=== PATIENT | female | born 1940 | race Caucasian/White ===

== ENCOUNTER 2023-08-15 10:44 | Emergency (ER) | payer MEDICARE, SELFPAY ==
[2023-08-15] VITALS (9 sets, daily range): BP systolic 107–157; BP diastolic 60–86; BMI 24.5
--- NOTE | 2023-08-15 11:42 | EDRN ---
Abrasions on L elbow and knee cleansed w/ saline and dressed w/ double antibiotic ointment. L great toe cleansed w/ saline and dressed w/ double antibiotic ointment and bandaid.
--- NOTE | 2023-08-15 14:20 | ED.MUSCINJ ---
HPI-Injury
General
Chief Complaint: Fall
Source: patient
Time Seen by Provider: 08/15/23 11:26
Travel History
Have you had any contact with someone who has COVID-19?: No
Do you have any symptoms of coronavirus? Fever > 100 degrees, chills, cough, shortness of breath, sore throat, loss of taste or smell, muscle aches, or headache?: No
History of Present Illness-Injury
Initial Injury comments:
82 year old female presents after mechanical fall with complaints of left wrist left hip and knee pain. She also injured her left toes and her right rib. Did not hit her head. Not anticoagulated. She denies any neck or back pain. She typically
ambulates on her own without the assistance of a cane or walker.
Phy Exam
Physical Exam
Physical Exam:
General: Well-appearing female no acute respiratory distress
HEENT: Normocephalic atraumatic
Heart: Regular rate and rhythm no murmurs
Lungs: Clear to auscultation bilaterally no wheezing
Abd: Soft, nontender
MSK: Spine is nontender. Left wrist is swollen and tender over the distal radius. No significant deformity. Left knee has ecchymosis with effusion no deformity but diffusely tender. Mild palpation about the left hip and second toe.
Right ribs are tender anteriorly
Injury Course
Orders/Labs/Results
Orders:
Orders
08/15/23 11:38
CR Foot - Left Min 3 Views Urgent
Comment:
Reason For Exam: fall
CR Hip - LT w/wo Pel 2-3 Vw* Urgent
Comment:
Reason For Exam: fall
Include a pelvis x-ray?: Yes
CR Knee - Left 4 Or More View* Urgent
Comment:
Reason For Exam: fall
CR Ribs-right 3 Vw W/pa Chest* Urgent
Comment:
Reason For Exam: fall
CR Wrist - Left Min 3 Views Urgent
Comment:
Reason For Exam: fall
08/15/23 13:27
CT Pelvis W/o Iv Contrast Urgent
Comment:
Reason For Exam: possible left hip fracture
08/15/23 13:33
Volar Left-Treatment ONCE
08/15/23 15:05
Acetaminophen [Tylenol] 650 mg PO NOW STA
08/15/23 15:06
PT Consult [Pt Eval And Treat] Urgent
Activity Level: Ambulate
MDM/Problems Addressed
Differential Diagnosis Includes:
Mechanical fall with multiple areas of comfort. Order x-rays left wrist right ribs left hip left knee and left foot.
*Critical Care Note
Total Time (30-74mins, 75-104mins- exclusive of procedures): Not Applicable
Update Note
Update Note:
CT of the pelvis was negative for hip fracture. X-rays of the left knee were negative. She does have an effusion. Only fractures of left wrist distal radius fracture. The left foot and right ribs were negative. I placed the patient in a volar
splint using cast padding 2 inch OCL and Óscar bandages. Patient attempted initially to stand up and walk however she was having difficulty doing so because of the left knee discomfort. Formal physical therapy consult was placed and she did not do
so well. They recommend SNF for rehab. Family is in the room and is very supportive. There is many family members around that can help. They are requesting to wait a little bit more time for the Tylenol to help and reevaluate her ambulatory
status. I was in the room and we tried again. Patient was able to stand and transfer to a chair take a couple steps on her leg. Family very comfortable taking her home at this point. I think this is reasonable. Recommended continued ibuprofen
or Tylenol for pain return precautions were given. Stable for discharge with orthopedic follow-up
ED Attending Note
-
Portions of this chart may have been created with voice recognition software.� Occasional wrong word or��sound alike� substitutions may have occurred due to the inherent limitations of voice recognition software.
Discharge Plan
Departure
Patient Disposition: Home (Routine Discharge)
Date of Disposition: 08/15/23
Time of Disposition: 16:52
Patient with high blood pressure during this ER visit?: No
Discharge Problem:
Distal radial fracture
Instructions: Muscle and Bone Pain (DC), Contusion (DC)
Referrals:
Devyn Hamilton MD [Active] -
Namita Naqvi MD [Family Provider] -
Activity Restrictions/Additional Instructions:
Continue to administer ibuprofen or Tylenol for pain. Use cane for support. Follow up with orthopedics for further evaluation. Return if needed otherwise.
Interventions
Interventions:
*Risk Screen - Suicide Last Done: 08/15/23 10:50
*General Assessment Last Done: 08/15/23 10:50
*Neglect/Abuse Screening Last Done: 08/15/23 10:50
ED- Fall Risk Assessment Last Done: 08/15/23 10:50
*ED COVID-19 Vaccine History Last Done: 08/15/23 10:50
ED-Musculoskeletal Assessment Last Done: 08/15/23 11:37
ED- Neurological Assessment Last Done: 08/15/23 11:37
ED-Skin Assessment Last Done: 08/15/23 11:37
--- NOTE | 2023-08-15 14:51 | EDRN ---
Cielo BHAKTA in room cutting off pt's ring and applying L volar splint at this time.
[2023-08-15] MEDS: TYLENOL 650 MG PO (15:10)
--- NOTE | 2023-08-15 15:22 | EDRN ---
PT in room w/pt. Pt just got up OOB to commode and back. Only taking very tiny steps. Foot and L upper leg and knee pain during ambulation, not wanting to use that leg.
--- NOTE | 2023-08-15 16:05 | EDRN ---
Pt administered water. PT said pt is not able to ambulate enough to be discharged home. Pt should be admitted. Pt is taking care of spouse at home and no family members are living w/ them. pt is unable to ambulate even w/ PT. Cielo BHAKTA said
okay for pt to drink and pt as she requested was administered a cup of water.
--- NOTE | 2023-08-15 16:59 | EDRN ---
Cielo BHAKTA said pt transfering much better and family will be staying w/ her as well so plan is for pt to be discharged.
== END 2023-08-15 17:25 | disposition home or self-care (01) ==
LOC: EMR 10:44
PROVIDERS: EMERGENCY PHYSICIAN Emergency Medicine; FAMILY PHYSICIAN Family Medicine
DX: S52.502A Unspecified fracture of the lower end of left radius, initial encounter for closed fracture (principal); W19.XXXA Unspecified fall, initial encounter
CPT/HCPCS: 99283; 29125; 71101; 72192; 73110; 73502; 73564; 73630

== ENCOUNTER 2023-08-18 08:35 | Inpatient (IN) | payer MEDICARE, SELFPAY ==
[2023-08-16 11:56] VITALS: BP 115/74
--- NOTE | 2023-08-16 13:27 | ED.GENMED ---
History of Present Illness
General
Chief Complaint: Weakness
Source: patient
Exam Limitations: none
Time Seen by Provider: 08/16/23 13:11
Travel History
Have you had any contact with someone who has COVID-19?: No
Do you have any symptoms of coronavirus? Fever > 100 degrees, chills, cough, shortness of breath, sore throat, loss of taste or smell, muscle aches, or headache?: No
History of Present Illness
History of Present Illness:
82-year-old female seen here yesterday after a fall. She was diagnosed with a left distal radius fracture and effusion to the left knee. Admission was discussed yesterday and offered however family felt strongly about taking her home. She was
seen by PT yesterday who recommended placement secondary to ambulatory dysfunction. She lives at home with her who she takes care of. They try to take her home last night however she is not ambulatory secondary to left leg dysfunction and
pain. CT of the pelvis yesterday was negative x-ray left knee and foot were also negative. Family notes increased confusion since yesterday. No measurable fever. No cough.
Phy Exam
Physical Exam
Physical Exam:
General: Well-appearing female no acute respiratory distress
HEENT: Normocephalic atraumatic mucosa moist neck is supple
Heart: Regular rate and rhythm no murmurs
Lungs: Clear to auscultation bilaterally no wheezing
Abdomen: Soft nontender nondistended no guarding or rebound
Musculoskeletal exam: Spine nontender left hip nontender diffuse tenderness about the left knee with effusion. Left thigh and hernandez are nontender.
Neurologic: Alert oriented to person. Occasionally repeats herself. No facial asymmetry no drift on exam good muscle tone struggle significantly is a maximum assist getting from the wheelchair to the bed
Course
Orders/Labs/Results
Orders:
Orders
08/16/23 13:26
CT Head W/o Iv Contrast Urgent
Comment:
Reason For Exam: fall, weakness
08/16/23 13:40
COVID-19 Antigen Urgent
Source: Nasal Swab
Complete Blood Count/With Diff Urgent
Comprehensive Metabolic Panel Urgent
Influenza A+B Rapid Molecular Urgent
EMILY Source: Nasal Swab
Specimen Description:
08/16/23 14:33
Case Management Consult ONCE
Case Management Consult: Discharge Planning
08/16/23 14:57
Urinalysis Reflex To Culture Urgent
Date Specimen was Collected: 08/16/23
Time Specimen was Collected: 14:29
Urine Microscopic Reflex Cult Urgent
Urine Culture Urgent
EMILY Source: U
Specimen Description:
Date Specimen was Collected: 08/16/23
Time Specimen was Collected: 14:29
08/16/23 15:40
CefTRIAXone [Rocephin] 1,000 mg IV NOW STA
Abnormal Lab Results
08/16/23 08/16/23
13:40 14:57
RBC 3.92 L 10^6/uL
(4.20-5.40)
Hgb 11.6 L g/dL
(12.0-16.0)
Hct 34.6 L %
(37.0-47.0)
MPV 10.6 H fL
(7.4-10.4)
Absolute Lymphs (auto) 1.1 L 10^3/uL
(1.2-3.4)
Neutrophils % 76.3 H %
(42.2-75.2)
Lymphocytes % 14.8 L %
(20.5-51.1)
BUN 25 H mg/dl
(7-17)
Creatinine 1.2 H mg/dL
(0.6-1.0)
Glucose 104 H mg/dl
(70-99)
Urine Ketones Trace A
(Negative)
Ur Occult Blood Reflex 2+ A
(Negative)
Urine Nitrite (Reflex) Positive A
(Negative)
Leukocyte Esterase Rfl 1+ A
(Negative)
Urine RBC 3-6 A /HPF
(0-2)
Urine WBC (Reflex) 11-15 A /HPF
(0-5)
Urine Bacteria (Reflex) Many A
(Negative)
08/16/23 13:40
08/16/23 13:40
Vital Signs
Initial and Last Documented VS:
Initial Vital Signs
Temp Pulse Resp BP Pulse Ox
98.8 F 61 16 115/74 98
08/16/23 11:56 08/16/23 11:56 08/16/23 11:56 08/16/23 11:56 08/16/23 11:56
Last Documented Vital Signs
Temp Pulse Resp BP Pulse Ox
98.8 F 61 16 115/74 98
08/16/23 11:56 08/16/23 11:56 08/16/23 11:56 08/16/23 11:56 08/16/23 11:56
MDM/Problems Addressed
Differential Diagnosis Includes:
None left distal radius fracture. Generalized weakness and increased confusion with recent fall. Now nonambulatory. Prior to the fall she was fully functional and ambulatory. Will check CAT scan of head, labs and urinalysis. Test for COVID and
flu. PT evaluation yesterday recommended placement. Patient not safe to go home at this time
*Critical Care Note
Total Time (30-74mins, 75-104mins- exclusive of procedures): Not Applicable
Update Note
Update Note:
UA with nitrites and bacteria. CT negative COVID and flu negative. Patient here with falls weakness increased confusion. Has a known left distal radius fracture. Tried to go home last night but requiring too much assistance and family unable to
care for at home. Will admit to hospital. Rocephin started for UTI case management involved for discharge planning
ED Attending Note
-
Portions of this chart may have been created with voice recognition software.� Occasional wrong word or��sound alike� substitutions may have occurred due to the inherent limitations of voice recognition software.
Discharge Plan
Departure
Patient Disposition: Admit
Date of Disposition: 08/16/23
Time of Disposition: 15:53
Presentation/result/management discussed w/ accepting MD/DO: Hospitalist
Discharge Problem:
Acute UTI, Weakness
Prescriptions:
No Action
atorvastatin 10 mg Tablet
10 mg PO DAILY@1999
acetaminophen [Tylenol Extra Strength] 500 mg Tablet
1,000 mg PO BIDPRN PRN (Reason: mild pain)
triamcinolone acetonide 0.1 % Cream
1 applic TOPICAL BID
mirtazapine 30 mg Tablet
30 mg PO DAILY@1999
escitalopram oxalate 20 mg Tablet
20 mg PO DAILY
metoprolol tartrate 25 mg Tablet
12.5 mg PO BID
Referrals:
Namita Naqvi MD [Family Provider] -
Interventions
Interventions:
*Risk Screen - Suicide Last Done: 08/16/23 13:32
*General Assessment Last Done: 08/16/23 13:32
*Neglect/Abuse Screening Last Done: 08/16/23 13:32
ED- Cardiac Assessment Last Done: 08/16/23 13:47
ED- Neurological Assessment Last Done: 08/16/23 13:47
ED- Pulmonary Assessment Last Done: 08/16/23 13:47
[2023-08-16 13:31] VITALS: BMI 22.9
[2023-08-16 14:00] LABS: % Basophils 0.3 % (0-2); % Eosinophils 0.4 % (0-6); % Immature Granulocytes 0.4 % (0-0.5); % Lymphocytes 14.8 % (20.5-51.1); % Monocytes 7.8 % (1.7-9.3); % Neutrophils 76.3 % (42.2-75.2); Absolute Lymphocytes 1.1 10^3/uL (1.2-3.4); Absolute Monocytes 0.6 10^3/uL (0.1-0.6); Absolute Neutrophils 5.6 10^3/uL (1.4-6.5); Hematocrit 34.6 % (37.0-47.0); Hemoglobin 11.6 g/dL (12.0-16.0); Mean Corp Hgb Conc. 33.5 g/dL (33.0-37.0); Mean Corpuscular Hgb 29.6 pg (27.0-31.0); Mean Corpuscular Volume 88.3 fL (81.0-99.0); Mean Platelet Volume 10.6 fL (7.4-10.4); Nucleated Red Blood Cells % 0 %; Platelet Count 193 10^3/uL (130-400); Red Blood Cell Count 3.92 10^6/uL (4.20-5.40); Red Cell Dist. Width 13.5 % (11.5-14.5); White Blood Cell Count 7.3 10^3/uL (4.8-10.8)
[2023-08-16 14:09] LABS: ALT (SGPT) 15 U/L (0-35); AST (SGOT) 29 U/L (14-36); Albumin 4.3 g/dl (3.5-5.0); Alkaline Phosphatase 59 U/L (38-126); Blood Urea Nitrogen 25 mg/dl (7-17); Calcium 9.3 mg/dl (8.4-10.2); Carbon Dioxide 27 mmol/L (22-30); Chloride 103 mmol/L (98-107); Estimated Creatinine Clearance 34 ml/min; Glucose 104 mg/dl (70-99); Potassium 4.1 mmol/L (3.5-5.1); Sodium 135 mmol/L (135-145); Total Bilirubin 1.1 mg/dl (0.2-1.3); Total Protein 7.4 g/dl (6.3-8.2); eGFR 45.19
[2023-08-16 14:12] LABS: COVID-19 Antigen Negative (Negative)
[2023-08-16 15:16] LABS: Urine Albumin Trace (Neg - Trace); Urine Bilirubin Negative (Negative); Urine Character Clear (Clear); Urine Color Yellow; Urine Glucose Negative (Negative); Urine Ketone Trace (Negative); Urine Leukocyte 1+ (Negative); Urine Nitrite Positive (Negative); Urine Occult Blood 2+ (Negative); Urine Specific Gravity 1.015 (<1.030); Urine Urobilinogen Negative (Neg - 1+)
[2023-08-16 15:32] LABS: Urine Bacteria Many (Negative)
[2023-08-16] MEDS: ROCEPHIN 1000 MG IV (15:52)
--- NOTE | 2023-08-16 16:00 | CM ---
CM following re: d/c planning
Chart reviewed
CM met with the patient & her daughter at bedside; IA completed
Pt states she, her spouse, her dtr. & son-in-law reside in a 1 story rancher with a ramp
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
Pt has no previous SNF/VN hx and has the following DME for use if needed: a transport chair, O2, r/w, bsc,spc, & CPAP
Pt has prescription coverage and rx's are filled at [facility] on [facility]
Pt PCP-Dr. Naqvi
Patient's daughter at bedside is requesting a PM&R consult and is looking for her mom to be discharged to [place] if appropriate
CM will continue to follow patient and assist with continued d/c needs as indicated
PLAN; CM following for needs
[2023-08-16] MEDS: TYLENOL 650 MG PO (18:39)
--- NOTE | 2023-08-16 20:31 | HPS.HSE ---
Family Physician
-
Family Physician: Namita Naqvi
Chief Complaint
-
Weakness and left knee pain after a recent fall
History of Present Illness
82 y/o female with past medical history of chronic kidney disease, hypertension, hyperlipidemia, depression, anxiety and insomnia presented (with her daughter present at the time of admission) presented with generalized weakness after a recent fall
yesterday, she came to the ER, and she was diagnosed with a left distal radius fracture and effusion to the left knee. Patient was discharged home after family and patient wanted to go home, but after going home last night she was noted have leg
dysfunction and pain, especially on the left knee. At baseline, patient is full independent of activities of daily living, patient lives at home with her who she takes care of. CT of the pelvis yesterday was negative x-ray left knee and foot
were also negative.
Medical History
Past Medical History
Past Medical History: Reports Other (As per HPI above)
Past Surgical History: Reports None
Social History
Tobacco: Non-smoker
Alcohol: None
Drug: None
Family History
Family History: Not pertinent
Allergies / Home Medications
Allergies reflects when Allergies were last updated in [employer].
Home Medications with original date entered in [employer]
Allergy/Medication List:
Allergies
Allergy/AdvReac Type Severity Reaction Status Date / Time
Sulfa (Sulfonamide Allergy Rash Verified 08/16/23 11:55
Antibiotics)
Home Medications
acetaminophen 500 mg tablet (Tylenol Extra Strength) 1,000 mg PO BIDPRN PRN mild pain 08/16/23
atorvastatin 10 mg tablet 10 mg PO DAILY@199908/16/23
escitalopram oxalate 20 mg tablet 20 mg PO DAILY 08/16/23
metoprolol tartrate 25 mg tablet 12.5 mg PO BID 08/16/23
mirtazapine 30 mg tablet 30 mg PO DAILY@199908/16/23
triamcinolone acetonide 0.1 % topical cream 1 applic topical BID apply to right ankle/left elbow/lower back 08/16/23
Review of Systems
-
A 12 point ROS was completed and negative except as noted: Yes
Physical Exam
Vital Signs
Vital Signs
Temp Pulse Resp BP Pulse Ox
98.8 F 61 16 115/74 98
08/16/23 11:56 08/16/23 11:56 08/16/23 11:56 08/16/23 11:56 08/16/23 11:56
Physical Exam
General: No Apparent Distress and Comfortable
HEENT: NormoCephalic
Respiratory: Clear
Cardiac: S1/S2 and Regular Rhythm
GI: Soft, Non Tender and Normal Bowel Sounds
Musculoskeletal: No Cyanosis, No Edema and Other (Left Knee with tenderness and some swelling. Minimal erythema.)
Skin: Warm and Dry
Neuro: Awake, Alert and AO x 3
Psych: Calm
Laboratory Results
-
08/16/23 13:40
08/16/23 13:40
Laboratory Results
Total Bilirubin 1.1 mg/dl (0.2-1.3) 08/16/23 13:40
AST 29 U/L (14-36) 08/16/23 13:40
ALT 15 U/L (0-35) 08/16/23 13:40
Alkaline Phosphatase 59 U/L (38-126) 08/16/23 13:40
Impression/Plan
-
Assessment/Plan
Generalized Weakness
Fall Recently
Suspected UTI
-Ceftriaxone
-Follow cultures, vital signs
-PT/OT
-Neurovascular checks
Left distal radius fracture
Effusion to the left knee
-Will consult orthopedics
-Neurovascular checks
NATHALIE vs Chronic kidney disease Stage 3a
-Trial of IV fluids
-Will consider nephrology consultation
Hypertension - continue home Lopressor
Hyperlipidemia - continue home Atorvastating
Depression - continue home escitalopram. Check QTc.
Anxiety
Insomnia - continue Mirtazapine
DVT Prophylaxis: SCDs, Heparin
[2023-08-16] MEDS: HEPARIN SC (21:51)
[2023-08-16] MEDS: LOPRESSOR 12.5 MG PO (21:55)
[2023-08-16] MEDS: REMERON 30 MG PO (21:55)
[2023-08-16] MEDS: LIPITOR 10 MG PO (21:55)
[2023-08-16] MEDS: NSS 1000 IV (21:55)
[2023-08-16 22:10] VITALS: BP 143/86
[2023-08-17] VITALS (7 sets, daily range): BP systolic 127–176; BP diastolic 61–80
[2023-08-17 06:35] LABS: % Basophils 0.4 % (0-2); % Eosinophils 1.1 % (0-6); % Immature Granulocytes 0.4 % (0-0.5); % Lymphocytes 20.5 % (20.5-51.1); % Monocytes 7.8 % (1.7-9.3); % Neutrophils 69.8 % (42.2-75.2); Absolute Eosinophils 0.1 10^3/uL (0-0.7); Absolute Lymphocytes 1.5 10^3/uL (1.2-3.4); Absolute Monocytes 0.6 10^3/uL (0.1-0.6); Hematocrit 33.2 % (37.0-47.0); Hemoglobin 11.4 g/dL (12.0-16.0); Mean Corp Hgb Conc. 34.3 g/dL (33.0-37.0); Mean Corpuscular Hgb 30.4 pg (27.0-31.0); Mean Corpuscular Volume 88.5 fL (81.0-99.0); Mean Platelet Volume 10.8 fL (7.4-10.4); Nucleated Red Blood Cells % 0 %; Platelet Count 169 10^3/uL (130-400); Red Blood Cell Count 3.75 10^6/uL (4.20-5.40); Red Cell Dist. Width 13.5 % (11.5-14.5); White Blood Cell Count 7.1 10^3/uL (4.8-10.8)
[2023-08-17 06:54] LABS: Blood Urea Nitrogen 23 mg/dl (7-17); Calcium 9.2 mg/dl (8.4-10.2); Carbon Dioxide 23 mmol/L (22-30); Chloride 105 mmol/L (98-107); Estimated Creatinine Clearance 41 ml/min; Glucose 102 mg/dl (70-99); Magnesium 2.2 mg/dl (1.6-2.3); Sodium 138 mmol/L (135-145); eGFR 56.25
[2023-08-17 07:06] LABS: Creatine Phosphokinase 119 U/L (30-135)
[2023-08-17] MEDS: LOPRESSOR 12.5 MG PO ×2 (07:39→19:46)
[2023-08-17] MEDS: MIRALAX 17 GRAMS PO (07:39)
[2023-08-17] MEDS: SENOKOT 8.59999999999999964 MG PO (07:40)
[2023-08-17] MEDS: COLACE 100 MG PO (07:40)
[2023-08-17] MEDS: HEPARIN SC ×2 (07:46→19:54)
--- NOTE | 2023-08-17 07:49 | EDRN ---
Pt did not want the Heparin ' until I check with my daughter'. Other meds administered as pharmacy delivers them
[2023-08-17] MEDS: LEXAPRO 20 MG PO (07:56)
[2023-08-17] MEDS: ARISTOCORT/TRIAMCINOLONE 0.1% CREAM 1 APPLIC TOPICAL ×2 (07:57→19:45)
--- NOTE | 2023-08-17 09:36 | W.PN.UPDATE ---
Update Note
Progress Note Update
Patient seen this morning on rounds. Full consult note to follow.
I believe Luba is dealing with a LCL strain. Her images do not reveal any obvious fractures of her knee or hip, and her exam is not concerning for occult hip fracture. She may continue WBAT to LLE, but recommend assistive device to offload weight
from the joint. Continue splint and NWB to LUE until seen by outpatient orthopedics. Continue pain control per primary.
--- NOTE | 2023-08-17 10:18 | EDRN ---
needs direction when asked to do things; seems forgetful.
[2023-08-17] MEDS: TYLENOL 1000 MG PO ×2 (11:48→23:06)
--- NOTE | 2023-08-17 12:32 | CON.ORTHO ---
Addendum entered and electronically signed by Ming Enriquez MD 08/17/23 17:18:
Patient seen and examined and agree with Trena Morrissey's assessment and plan
Original Note:
Consultation
-
Date/Time Consultation Requested: 08/17/2023; time unknown
Date/Time Consultation Performed: 08/17/2023; 0830
Requesting Provider: unknown
Performing Provider: Trena Morrissey PA-C for Dr. Ming Enriquez
Reason for Consultation: Left distal radius fracture; left knee pain
Consultation - Orthopedics
History
Ms. Flanagan is an 82 year old female with PMH of chronic kidney disease, hypertension, hyperlipidemia, depression, anxiety and insomnia. She presented initially to [facility] ED after a fall at home on 08/15/2023. She reports her feet got
caught while swinging on a glider on her porch, and she fell forward onto her knees. She experienced onset on pain in her left wrist and left knee. She was discharged home, but returned to the ED due to continued pain in her left knee and difficulty
ambulating. She localizes pain to her lateral knee. She does report significant improvement in both her pain and ROM this morning. She denies any low back or hip pain.
She does live independently, and ambulates without assistance at baseline. She denies treatment with an orthopedist in the past.
Allergies / Home Medications
Allergy/AdvReac Type Severity Reaction Status Date / Time
Sulfa (Sulfonamide Allergy Rash Verified 08/16/23 11:55
Antibiotics)
Medication Instructions Recorded
acetaminophen 500 mg tablet 1,000 mg PO BIDPRN PRN mild pain 08/16/23
(Tylenol Extra Strength)
atorvastatin 10 mg tablet 10 mg PO DAILY@2000 High 08/16/23
Cholesterol
escitalopram oxalate 20 mg tablet 20 mg PO DAILY Mental 08/16/23
Health/Anxiety
metoprolol tartrate 25 mg tablet 12.5 mg PO BID Blood Pressure 08/16/23
mirtazapine 30 mg tablet 30 mg PO DAILY@1999 Mental 08/16/23
Health/Anxiety
triamcinolone acetonide 0.1 % 1 applic topical BID apply to 08/16/23
topical cream right ankle/left elbow/lower back
Vital Signs / Lab Results
Temp Pulse Resp BP Pulse Ox
98.4 F 71 16 133/71 97
08/17/23 07:20 08/17/23 07:39 08/17/23 06:15 08/17/23 07:39 08/17/23 06:15
08/17/23 06:13
08/17/23 06:13
XR Left Hip 08/15/2023 IMPRESSION:
There is subtle cortical disruption at the lateral aspect of the left femoral head and neck suggesting nondisplaced cortical fracture which, if clinically indicated, could be further evaluated with CT or MRI.
XR Left Knee 08/15/2023 IMPRESSION:
Moderate suprapatellar joint effusion. No osseous abnormalities.
XR Left Wrist 08/15/2023 IMPRESSION:
Comminuted angulated fracture of the distal left radial metaphysis, with possible intra-articular extension.
CT Pelvis 08/15/2023 IMPRESSION:
No acute abnormalities.
Degenerative disc disease at L5-S1
Physical Exam:
General: pleasant female in NAD, AAOx3
Head: atraumatic, normocephalic
Eyes: sclera anicteric
Ears: normal hearing
Heart: no edema
Lungs: normal work of breathing, no audible wheezing
Left wrist: short arm splint in place. Patient able to wiggle fingers. Sensation intact to light touch. Capillary refill <2 seconds.
Left knee: Moderate effusion compared to contralateral side. Mild tenderness to palpation about the lateral femoral condyle and LCL. ROM 0-110. Stable to varus and valgus stress; discomfort elicited with varus stress. Calf soft and nontender.
Neurovascularly intact distally.
Assessment / Plan
Left distal radius fracture
--Continue with immobilization in splint. Non-weight bearing to left upper extremity.
--Ice, elevation and pain control per primary.
--Follow up in the office next week for repeat x-rays and likely casting.
Left knee pain and swelling; suspected LCL sprain
--I am reassured that Luba's knee pain has improved overnight. Her imaging does not show any signs of hip or knee fracture, and I do not suspect hip fracture on her exam today. I suspect she may have sustained an LCL sprain in her fall, as she
reports she may have twisted her knee. She may continue weight bearing as tolerated, and I suggested she utilize a gait aid to offload weight from her joint. I recommend ice, elevation and OTC medications for symptom management. We would be happy to
see her on an outpatient basis for her knee. Orthopedics will follow peripherally. Please reach out with any additional questions or concerns.
[2023-08-17] MEDS: ROCEPHIN 1000 MG IV (15:06)
[2023-08-17] MEDS: STERILE WATER FOR INJECTION 10 ML IV (15:06)
[2023-08-17] MEDS: NSS 1000 IV (15:07)
--- NOTE | 2023-08-17 16:31 | W.PN.HOSP.TC ---
Today's Communication/Plan
-
Treat UTI, Antibiotics
PT/OT
Rehab placement
Assessment / Plan
Assessment / Plan
Physical Exam
General: No Apparent Distress and Comfortable
HEENT: Normocephalic
Respiratory: Clear
Cardiac: S1/S2 and Regular Rhythm
GI: Soft, Non Tender and Normal Bowel Sounds
Musculoskeletal: No Cyanosis, No Edema and Other (Left Knee with tenderness and some swelling. Minimal erythema.)
Skin: Warm and Dry
Neuro: Awake, Alert and AO x 3
Psych: Calm

Assessment/Plan
Generalized Weakness
Fall Recently
Suspected UTI
-Ceftriaxone
-Follow cultures, vital signs
-Preliminary urine culture is growing E. coli
-PT/OT
-Neurovascular checks
Left distal radius fracture
Left Knee Pain Suspected Due to Left Knee Lateral Collateral Ligament Strain
-Consulted orthopedics, recommendations appreciated
-Continue WBAT to LLE but use assistive device to offload weight from the joint
-Continue splint and NWB to LUE until seen by outpatient orthopedics.
-Neurovascular checks
NATHALIE - IMPROVED
-Complete trial of IV fluids
-Will consider nephrology consultation if Cr worsens
Hypertension - continue home Lopressor
Hyperlipidemia - continue home Atorvastatin
Depression - continue home escitalopram. Check QTc.
Anxiety
Insomnia - continue Mirtazapine
DVT Prophylaxis: SCDs, Heparin
Anticipated Discharge: 24 - 48 hours
Subjective/Interval History
-
Date of Service: August 17, 2023
Patient was see and examined. She was able to get up and sit on the chair today, she denied any numbness or tingling in her left foot. She is afraid to put more pressure on her left side due to pain.
Objective Data
-
Labs:
Laboratory Results
08/17/23
06:13
WBC 7.1
Hgb 11.4 L
Hct 33.2 L
Plt Count 169
Sodium 138
Potassium 4.0
Chloride 105
Carbon Dioxide 23
BUN 23 H
Creatinine 1.0
Glucose 102 H
Calcium 9.2
Vital Signs:
Vital Signs
Temp Pulse Resp BP Pulse Ox
98.4 F 79 18 133/79 98
08/17/23 07:20 08/17/23 15:11 08/17/23 15:11 08/17/23 15:11 08/17/23 15:11
I&O
08/16/23 08/17/23 08/18/23
06:59 06:59 06:59
Intake Total 840 / 840
Output Total 120 / 120
Balance 840 / 840 -120 / -120
--- NOTE | 2023-08-17 17:30 | PTCARENOTE ---
Received pt from ER.Pt awake, alert and oriented x3. Pt c/o discomfort in left knee tolerable at this time. Splint to Left arm in place, N/V checks WNL. Pt VSS 99% on RA. Pt has eczema, dry skin patches noted to right ankle left elbow and lower
back, [employer] no drainage, medicated cream to be applied per orders. Pt oriented to room, call garcia within reach, plan of care ongoing.
[2023-08-17] MEDS: LIPITOR 10 MG PO (19:53)
[2023-08-17] MEDS: COLACE PO (19:53)
[2023-08-17] MEDS: SENOKOT PO (20:12)
[2023-08-17] MEDS: REMERON 30 MG PO (20:36)
[2023-08-18] MEDS: NSS 1000 IV (06:09)
[2023-08-18 07:00] VITALS: BP 149/78
[2023-08-18 07:57] LABS: % Basophils 0.7 % (0-2); % Eosinophils 1.6 % (0-6); % Immature Granulocytes 0.5 % (0-0.5); % Lymphocytes 25.5 % (20.5-51.1); % Monocytes 8.1 % (1.7-9.3); % Neutrophils 63.6 % (42.2-75.2); Absolute Eosinophils 0.1 10^3/uL (0-0.7); Absolute Lymphocytes 1.4 10^3/uL (1.2-3.4); Absolute Monocytes 0.4 10^3/uL (0.1-0.6); Absolute Neutrophils 3.5 10^3/uL (1.4-6.5); Hematocrit 31.7 % (37.0-47.0); Hemoglobin 10.6 g/dL (12.0-16.0); Mean Corp Hgb Conc. 33.4 g/dL (33.0-37.0); Mean Corpuscular Hgb 30.5 pg (27.0-31.0); Mean Corpuscular Volume 91.4 fL (81.0-99.0); Mean Platelet Volume 11.2 fL (7.4-10.4); Nucleated Red Blood Cells % 0 %; Platelet Count 167 10^3/uL (130-400); Red Blood Cell Count 3.47 10^6/uL (4.20-5.40); Red Cell Dist. Width 13.3 % (11.5-14.5); White Blood Cell Count 5.5 10^3/uL (4.8-10.8)
[2023-08-18 08:07] LABS: Glucose - Point of Care 97 mg/dl (70-99)
[2023-08-18 08:42] LABS: Blood Urea Nitrogen 21 mg/dl (7-17); Calcium 8.6 mg/dl (8.4-10.2); Carbon Dioxide 23 mmol/L (22-30); Chloride 110 mmol/L (98-107); Estimated Creatinine Clearance 37 ml/min; Glucose 99 mg/dl (70-99); Potassium 4.4 mmol/L (3.5-5.1); Sodium 137 mmol/L (135-145); eGFR 50.17
[2023-08-18] MEDS: ARISTOCORT/TRIAMCINOLONE 0.1% CREAM 1 APPLIC TOPICAL ×2 (08:53→19:54)
[2023-08-18] MEDS: HEPARIN SC (08:54)
[2023-08-18] MEDS: COLACE 100 MG PO (08:54)
[2023-08-18] MEDS: LOPRESSOR 12.5 MG PO ×2 (08:54→20:03)
[2023-08-18] MEDS: MIRALAX 17 GRAMS PO (08:54)
[2023-08-18] MEDS: SENOKOT 8.59999999999999964 MG PO (08:55)
[2023-08-18] MEDS: LEXAPRO 20 MG PO (08:55)
--- NOTE | 2023-08-18 08:56 | CM ---
Reviewed PT OT eval which said acute rehab.
Family had requested [facility].
Spoke with Amber Gallegos at [facility] will review case.
Pt was changed from observation to inpatient this am as per [facility] nurse .
Pt does not need to be inpatient to go to acute rehab as per [facility].
PLAN to SNF VS acute rehab depending if she qualifies
[2023-08-18 12:03] VITALS: PULSE 78; O2SAT 97
--- NOTE | 2023-08-18 12:05 | W.PN.HOSP.TC ---
Today's Communication/Plan
-
Awaiting placement
[facility] evaluation
Appreciate case management efforts
Assessment / Plan
Assessment / Plan
Physical Exam
General: No Apparent Distress and Comfortable
HEENT: Normocephalic
Respiratory: Clear
Cardiac: S1/S2 and Regular Rhythm
GI: Soft, Non Tender and Normal Bowel Sounds
Musculoskeletal: No Cyanosis, No Edema and Other (Left Knee with tenderness and some swelling. Minimal erythema.). Improved left knee flexion and extension.
Skin: Warm and Dry
Neuro: Awake, Alert and AO x 3
Psych: Calm

Assessment/Plan
Generalized Weakness
Fall Recently
E. coli Urinary Tract Infection
-Status post Ceftriaxone
-Started on August 18, 2023 - Cefdinir 300 mg BID; continue
-Follow cultures, vital signs
-PT/OT
-Neurovascular checks
Left distal radius fracture
Left Knee Pain Suspected Due to Left Knee Lateral Collateral Ligament Strain
-Consulted orthopedics, recommendations appreciated
-Continue WBAT to LLE but use assistive device to offload weight from the joint
-Continue splint and NWB to LUE until seen by outpatient orthopedics.
-Neurovascular checks
Acute Kidney Injury - IMPROVED OVERALL
-Completed trial of IV fluids
-Will consider nephrology consultation if Cr worsens
Hypertension - continue home Lopressor
Hyperlipidemia - continue home Atorvastatin
Depression - continue home escitalopram. Check QTc.
Anxiety
Insomnia - continue Mirtazapine
DVT Prophylaxis: SCDs, Heparin
Anticipated Discharge: 24 - 48 hours
Subjective/Interval History
-
Date of Service: August 18, 2023
Patient was seen and examined. She reported that she can move her left lower extremity and left knee better, she denied any new symptoms.
Objective Data
-
Labs:
Laboratory Results
08/18/23
06:53
WBC 5.5
Hgb 10.6 L
Hct 31.7 L
Plt Count 167
Sodium 137
Potassium 4.4
Chloride 110 H
Carbon Dioxide 23
BUN 21 H
Creatinine 1.1 H
Glucose 99
Calcium 8.6
Vital Signs:
Vital Signs
Temp Pulse Resp BP Pulse Ox
98.9 F 76 18 149/78 96
08/18/23 07:00 08/18/23 08:54 08/18/23 07:00 08/18/23 08:54 08/18/23 08:49
I&O
08/17/23 08/18/23 08/19/23
06:59 06:59 06:59
Intake Total 840 / 840 240 / 240
Output Total 120 / 120
Balance 840 / 840 120 / 120
[2023-08-18 13:46] VITALS: BP 116/70; PULSE 82; O2SAT 96
[2023-08-18] MEDS: OMNICEF 300 MG PO ×2 (13:46→19:57)
[2023-08-18 15:00] VITALS: BP 166/82
--- NOTE | 2023-08-18 15:52 | PTCARENOTE ---
Pt AAO x3, DEVLIN; OOB to BSC/chair with assist x1-2/platform walker ; kenyatta well, pt very anxious/hesitant re; OOB activity. VSS. On room air- pulse ox 97%, no SOB noted. Abd soft, kenyatta POP well. Voiding on BSC without difficulty. Lt forearm
splint/HANNAH wrap intact; circ/neuro check to Lt fingers WNL; +1 edema of fingers; pt keeps LUE/LLE elevated on pillows. Resting in bed at present. Will continue to monitor.
[2023-08-18] MEDS: HEPARIN 5000 UNITS SC (19:55)
[2023-08-18] MEDS: LIPITOR 10 MG PO (19:56)
[2023-08-18] MEDS: REMERON 30 MG PO (19:57)
[2023-08-18] MEDS: COLACE PO (19:58)
[2023-08-18] MEDS: SENOKOT PO (20:07)
[2023-08-18] MEDS: TYLENOL 1000 MG PO (22:42)
[2023-08-18 23:20] VITALS: BP 143/78
[2023-08-19 07:00] VITALS: BP 172/95
[2023-08-19 07:07] LABS: % Basophils 0.9 % (0-2); % Eosinophils 3.6 % (0-6); % Immature Granulocytes 0.5 % (0-0.5); % Lymphocytes 29.7 % (20.5-51.1); % Monocytes 8.6 % (1.7-9.3); % Neutrophils 56.7 % (42.2-75.2); Absolute Eosinophils 0.2 10^3/uL (0-0.7); Absolute Lymphocytes 1.3 10^3/uL (1.2-3.4); Absolute Monocytes 0.4 10^3/uL (0.1-0.6); Absolute Neutrophils 2.5 10^3/uL (1.4-6.5); Hematocrit 30.4 % (37.0-47.0); Hemoglobin 10.2 g/dL (12.0-16.0); Mean Corp Hgb Conc. 33.6 g/dL (33.0-37.0); Mean Corpuscular Hgb 30.7 pg (27.0-31.0); Mean Corpuscular Volume 91.6 fL (81.0-99.0); Mean Platelet Volume 11.2 fL (7.4-10.4); Nucleated Red Blood Cells % 0 %; Platelet Count 166 10^3/uL (130-400); Red Blood Cell Count 3.32 10^6/uL (4.20-5.40); Red Cell Dist. Width 13.3 % (11.5-14.5); White Blood Cell Count 4.4 10^3/uL (4.8-10.8)
[2023-08-19 07:29] LABS: Blood Urea Nitrogen 21 mg/dl (7-17); Calcium 8.7 mg/dl (8.4-10.2); Carbon Dioxide 25 mmol/L (22-30); Chloride 109 mmol/L (98-107); Estimated Creatinine Clearance 41 ml/min; Glucose 97 mg/dl (70-99); Potassium 4.3 mmol/L (3.5-5.1); Sodium 136 mmol/L (135-145); eGFR 56.25
[2023-08-19 08:45] VITALS: BP 147/70; PULSE 79; O2SAT 98
[2023-08-19] MEDS: SENOKOT PO ×2 (09:06→21:44)
[2023-08-19] MEDS: MIRALAX PO (09:06)
[2023-08-19] MEDS: COLACE PO ×2 (09:06→21:42)
[2023-08-19] MEDS: ARISTOCORT/TRIAMCINOLONE 0.1% CREAM 1 APPLIC TOPICAL ×2 (09:07→21:42)
[2023-08-19] MEDS: LEXAPRO 20 MG PO (09:08)
[2023-08-19] MEDS: HEPARIN 5000 UNITS SC ×2 (09:08→21:43)
[2023-08-19] MEDS: OMNICEF 300 MG PO ×2 (09:08→21:43)
[2023-08-19] MEDS: LOPRESSOR 12.5 MG PO ×2 (09:08→21:43)
[2023-08-19] MEDS: TYLENOL 1000 MG PO ×2 (09:13→21:47)
[2023-08-19 09:19] VITALS: BP 147/70; O2SAT 98
--- NOTE | 2023-08-19 09:53 | CM ---
Addendum entered by Patricia Carrera 08/19/23 15:41:
Pt accepted by [facility] for home needs
Fax - [phone]
Original Note:
PT recommending AIR
Per Liaison at [facility] -pt does not qualify
Obtained choices for snf from pts daughter
Referrals sent via [facility] to [facility]
Will need 3 nights to qualify for insurance
Awaiting response
CM will follow
Plan - d/c to snf - pending when medically ready
--- NOTE | 2023-08-19 11:52 | PN.CDI ---
CDI
- -
CDI:
Physician Documentation Request
Admit Date: 08/18/23 08:35
Dear Doctor Lee,
Patient found to have UTI.
H&P states 'NATHALIE vs Chronic kidney disease stage 3a'
Progress notes starting on 08/17 state 'NATHALIE'
Laboratory Tests
08/16/23 08/17/23 08/18/23
13:40 06:13 06:53
Creatinine 1.2 H 1.0 1.1 H
eGFR 45.19 56.25 50.17
08/19/23
06:20
Creatinine 1.0
eGFR 56.25
Pleae clarify which of the following accurately represents the patient's renal status:
____ - �NATHALIE is/was present and is a clinical diagnosis based on (please include this additional support in the
medical record)
____ - CKD 3A only
____ - Other
Criteria for NATHALIE*
1 Increase in serum creatinine by > or = to 0.3 mg/dL (> or = to 26.5 micromol/L) within 48 hours, OR
2 Increase in serum creatinine to > or = to 1.5 times baseline, which is known or presumed to have occurred within 7 days, OR
3 Urine volume < 0.5 nL/kg/hour for six hours
Stages of Chronic Kidney Disease*
Level Description GFR
G1 Normal or High >90
G2 Mildly decreased 60-89
G3a Mildly to moderately decreased 45-59
G3b Moderately to severely decreased 30-44
G4 Severely decreased 15-29
G5 Kidney failure <15
Use of terms such as suspected, likely, concern for, or probable (associated with a specific diagnosis that is being evaluated, monitored, or treated as if it exists) are acceptable and can be coded in the inpatient setting, when documented at the
time of discharge.
Thank you,
Юлия Aguilar RN, BSN
CDI Specialist
tiger text
Please use your independent medical judgment in providing your response.
*Source: Kidney Disease: Improving Global Outcomes (KDIGO) 2012
[2023-08-19] MEDS: TORADOL 15 MG IV (13:29)
--- NOTE | 2023-08-19 14:57 | CON.MD ---
Documented by User: Adriana Ford PA-C 08/19/23 17:49
Consultation - Medical
-
Referring Provider: Bi Howard
Chief Complaint: Left wrist fracture, left knee pain
History of Present Illness: Ms. Flanagan is an 82 year old female with PMH of chronic kidney disease, hypertension, hyperlipidemia, depression, anxiety and insomnia. She presented initially to [place] ED after a fall at home on 08/15/2023.
She reports her feet got caught while swinging on a glider on her porch, and she fell forward onto her knees. She experienced onset on pain in her left wrist and left knee. She was discharged home, but returned to the ED due to continued pain in her
left knee and difficulty ambulating. She localizes pain to her lateral knee. She does report significant improvement in both her pain and ROM. She denies any low back or hip pain. Being treated for UTI with cefdinir pending culture.
She does live independently, and ambulates without assistance at baseline. She denies treatment with an orthopedist in the past.
XR Left Wrist 08/15/2023 IMPRESSION:
Comminuted angulated fracture of the distal left radial metaphysis, with possible intra-articular extension.
R Left Knee 08/15/2023 IMPRESSION:
Moderate suprapatellar joint effusion. No osseous abnormalities.
CT Pelvis 08/15/2023 IMPRESSION:
No acute abnormalities.
Degenerative disc disease at L5-S1
XR Left Hip 08/15/2023 IMPRESSION:
There is subtle cortical disruption at the lateral aspect of the left femoral head and neck suggesting nondisplaced cortical fracture which, if clinically indicated, could be further evaluated with CT or MRI.
Past Medical History:�chronic kidney disease, hypertension, hyperlipidemia, depression, anxiety and insomnia.�
Procedure History:
Family History:
Social History:
Functional Level Premorbidly: Independent with all activities
Functional Level Currently: Bed mobility with supine to sit�min assist, sit to stand�min assist, patient ambulates 40 feet with platform rolling walker and minimal assistance for contact-guard. Mild antalgic left lower extremity, cues for
navigating device with turns, no overt loss of balance.�Supervision, ambulate�min assist with rolling walker
Tobacco: Denies
Alcohol: Denies
Drug use: Denies
Lives with: Spouse
24-hour assistance available:
Number of floors: 1
# steps to enter: 1
# steps to second floor:none
Potential First floor set up:
Driving: no
Occupation: retired
�
Allergies:
Allergy/AdvReac Type Severity Reaction Status Date / Time
Sulfa (Sulfonamide Allergy Rash Verified 08/16/23 11:55
Antibiotics)
Allergy/AdvReac Type Severity Reaction Status Date / Time
Sulfa (Sulfonamide Allergy Rash Verified 08/16/23 11:55
Antibiotics)
Review of Systems:
Constitutional: (x) Normal _
Eye: (x) Normal _
Ear/Nose/Throat: (x) Normal _
Respiratory: (x) Normal _
Cardiovascular: (x) Normal _
Gastrointestinal: (x) Normal _
Genitourinary: (x) Normal _
Musculoskeletal: (x) knee pain, wrist pain, fracture
Integumentary: (x) Normal _
Neurologic: (x) Normal _
Psychiatric: (x) Normal _
Endocrine: (x) Normal _
Hematologic/Lymphatic: (x) Normal _
Allergic/Immunologic: (x) Normal _
Medications:
Active Current Visit Medication List
Category Date Time Status
Acetaminophen [Tylenol] Med 08/16/23 21:02 Active
1,000 mg PO BIDPRN PRN
Atorvastatin [Lipitor] Med 08/17/23 20:00 Active
10 mg PO DAILY@2000
Cefdinir [Omnicef] Med 08/18/23 12:15 Active
300 mg PO Q12
Docusate Sodium [Colace] Med 08/17/23 08:00 Active
100 mg PO BID
Escitalopram Oxalate [Lexapro] Med 08/17/23 08:00 Active
20 mg PO DAILY
Flush (0.9% Sodium Chloride) [Flush (Nss)] Med 08/16/23 22:00 Active
See Dose Instructions IV PER PROTOCOL
Heparin Med 08/16/23 21:02 Active
5,000 units SC Q12
Metoprolol [Lopressor] Med 08/16/23 21:00 Active
12.5 mg PO BID
Mirtazapine [Remeron] Med 08/17/23 20:00 Active
30 mg PO DAILY@1999
Polyethylene Glycol Powder [Miralax] Med 08/17/23 08:00 Active
17 grams PO DAILY
Sennosides [Senokot] Med 08/17/23 08:00 Active
8.6 mg PO BID
Triamcinolone Cream [Aristocort/Triamcinolone 0.1% Med 08/17/23 08:00 Active
Cream]
0 applic TOPICAL BID
Vitals:
Temp Pulse Resp BP Pulse Ox
98.8 F 77 18 172/95 96
08/19/23 07:00 08/19/23 07:00 08/19/23 07:00 08/19/23 07:00 08/19/23 08:00
Height 5 ft 6 in
Actual Weight 64.4 kg
Body Mass Index (BMI) 22.9
Physical Exam:
General Appearance/Observation: Well-developed, well-nourished individual in no apparent distress.
Pain/Comfort Assessment: left wrist, right rib side, left knee
Mood/Affect: Appropriate
Integumentary/Operative Site:
�� Pressure Ulcer Evaluation: absent over heels.
��
�� Other Type of Wound: absent
��
Eyes: Conjunctiva/Lids: normal ��� Pupils: pupils equal round
Ears/Nose/Throat: oral mucosa moist,� throat clear.������������ Lips/Teeth/Gums: dentures
Neck: tightness left trapezius muscle
Cardiovascular: Heart: regular, no murmur
Pulses: dorsalis pedis 2+ bilaterally, capillary refill - left fingers-good
Respiratory: Respiratory Effort/Chest Expansion: normal ������ Auscultation: Clear to auscultation bilaterally
Gastrointestinal: abdomen not tender, no distension, normal abdominal bowel sounds
Genitourinary: No Carlos
Extremities: Edema: left hand,fingers Cyanosis: None Trophic changes: None
Neurology Exam:
Orientation: Alert, Oriented to self, Time, Place
Memory: Intact recent medical issues
Comprehension: Intact
Two step command: Intact
Naming: Intact
Cranial Nerves:
�� CNII: Pupillary light reflex: Intact���
�� CN III, IV, : Extraocular muscles: Intact
�� CN V: Facial Sensation at Forehead: Intact, Maxilla: Intact, Mandible: Intact
�� CN VII: Facial movement: Symmetric
�� CN VIII: Hearing: Normal
�� CN IX/X: Speech & swallow: Normal, Position of Uvula: Midline
�� CN XI: Shoulder shrug: Symmetric
�� CN XII: Tongue protrusion: Midline
Sensory:
�� Light touch: Intact in bilateral upper and lower extremities, deferred left hand,forearm
��
Reflexes:
�� Biceps: 2+ bilaterally
�� Brachioradialis: 2+ right, deferred left
�� Triceps: 2+ bilaterally
�� Patellar: 2+ right, 1+ left
�� Achilles: 2+ bilaterally
�� Javier: Negative bilaterally
Musculoskeletal:
Motor: (Manual muscle scale 0-5)
Muscle SA EF WE EE FF FA HF KE DF EHL PF
Right� 5 5 5 5 5 5 5 5 5
Left 5 3 4 5 4 5 5 5
Tone: Normal in all extremities
Range of Motion: Passively within normal limits in all extremities
Lab Results
Labs
WBC 4.4 10^3/uL (4.8-10.8) L 08/19/23 06:20
RBC 3.32 10^6/uL (4.20-5.40) L 08/19/23 06:20
Hgb 10.2 g/dL (12.0-16.0) L 08/19/23 06:20
Hct 30.4 % (37.0-47.0) L 08/19/23 06:20
MCV 91.6 fL (81.0-99.0) 08/19/23 06:20
MCH 30.7 pg (27.0-31.0) 08/19/23 06:20
MCHC 33.6 g/dL (33.0-37.0) 08/19/23 06:20
RDW 13.3 % (11.5-14.5) 08/19/23 06:20
Plt Count 166 10^3/uL (130-400) 08/19/23 06:20
MPV 11.2 fL (7.4-10.4) H 08/19/23 06:20
Abs Immat Gran (auto) 0.0 10^3/uL (0-0.05) 08/19/23 06:20
Absolute Neuts (auto) 2.5 10^3/uL (1.4-6.5) 08/19/23 06:20
Absolute Lymphs (auto) 1.3 10^3/uL (1.2-3.4) 08/19/23 06:20
Absolute Monos (auto) 0.4 10^3/uL (0.1-0.6) 08/19/23 06:20
Absolute Eos (auto) 0.2 10^3/uL (0-0.7) 08/19/23 06:20
Absolute Basos (auto) 0.0 10^3/uL (0-0.2) 08/19/23 06:20
Immature Gran % 0.5 % (0-0.5) 08/19/23 06:20
Neutrophils % 56.7 % (42.2-75.2) 08/19/23 06:20
Lymphocytes % 29.7 % (20.5-51.1) 08/19/23 06:20
Monocytes % 8.6 % (1.7-9.3) 08/19/23 06:20
Eosinophils % 3.6 % (0-6) 08/19/23 06:20
Basophils % 0.9 % (0-2) 08/19/23 06:20
Nucleated RBC % 0 % 08/19/23 06:20
Sodium 136 mmol/L (135-145) 08/19/23 06:20
Potassium 4.3 mmol/L (3.5-5.1) 08/19/23 06:20
Chloride 109 mmol/L (98-107) H 08/19/23 06:20
Carbon Dioxide 25 mmol/L (22-30) 08/19/23 06:20
BUN 21 mg/dl (7-17) H 08/19/23 06:20
Creatinine 1.0 mg/dL (0.6-1.0) 08/19/23 06:20
Estimated Creat Clear 41 ml/min 08/19/23 06:20
eGFR 56.25 08/19/23 06:20
Glucose 97 mg/dl (70-99) 08/19/23 06:20
Calcium 8.7 mg/dl (8.4-10.2) 08/19/23 06:20
Magnesium 2.0 mg/dl (1.6-2.3) 08/18/23 06:53
Total Bilirubin 1.1 mg/dl (0.2-1.3) 08/16/23 13:40
AST 29 U/L (14-36) 08/16/23 13:40
ALT 15 U/L (0-35) 08/16/23 13:40
Alkaline Phosphatase 59 U/L (38-126) 08/16/23 13:40
Creatine Kinase 119 U/L (30-135) 08/17/23 06:13
Total Protein 7.4 g/dl (6.3-8.2) 08/16/23 13:40
Albumin 4.3 g/dl (3.5-5.0) 08/16/23 13:40
Urine Color Yellow 08/16/23 14:57
Urine Clarity Clear (Clear) 08/16/23 14:57
Urine pH 5.0 (5.0-9.0) 08/16/23 14:57
Ur Specific [place] 1.015 (<1.030) 08/16/23 14:57
Urine Ketones Trace (Negative) A 08/16/23 14:57
Ur Occult Blood Reflex 2+ (Negative) A 08/16/23 14:57
Urine Nitrite (Reflex) Positive (Negative) A 08/16/23 14:57
Urine Bilirubin Negative (Negative) 08/16/23 14:57
Urine Urobilinogen Negative (Neg - 1+) 08/16/23 14:57
Leukocyte Esterase Rfl 1+ (Negative) A 08/16/23 14:57
Urine RBC 3-6 /HPF (0-2) A 08/16/23 14:57
Urine WBC (Reflex) 11-15 /HPF (0-5) A 08/16/23 14:57
Ur Squamous Epith Cells 3-5 /LPF (Few) 08/16/23 14:57
Urine Bacteria (Reflex) Many (Negative) A 08/16/23 14:57
Urine Glucose Negative (Negative) 08/16/23 14:57
Urine Albumin (Reflex) Trace (Neg - Trace) 08/16/23 14:57
SARS-CoV-2 Antigen Negative (Negative) 08/16/23 13:40
POC Glucose 97 mg/dl (70-99) 08/18/23 08:06
�
Diagnostic Results: as per HPI
Assessment Ms. Flanagan is an 82 year old female with PMH of chronic kidney disease, hypertension, hyperlipidemia, depression, anxiety and insomnia. She presented initially to [facility] ED after a fall at home on 08/15/2023. XR Left Wrist with
Comminuted angulated fracture of the distal left radial metaphysis, with possible intra-articular extension and XR of Left Knee with
Moderate suprapatellar joint effusion. No osseous abnormalities. Moderate suprapatellar joint effusion. No osseous abnormalities.
Plan
PT/OT to increase independence with ADLs, improve balance, coordination, endurance, strength, mobility, community reintegration, decreased burden of care on others and family education.
Left distal radius fracture: ortho recommendations
--Continue with immobilization in splint. Non-weight bearing to left upper extremity.
--Ice, elevation and pain control
--Follow up in the office next week for repeat x-rays and likely casting.
Left Knee pain:(ortho recommendation) she may have sustained an LCL sprain in her fall. continue weight bearing as tolerated, and I suggested she utilize a gait aid to offload weight from her joint. I recommend ice, elevation and OTC medications for
symptom management.
HTN: continue Lopressor
CKD: Monitor BMP, Avoid NSAIDS.
HLD: Atorvastatin
Psych: Psychology consult.� Monitor mood. Lexapro
Insomnia: Mirtazapine
Skin: monitor for pressure sores/rashes/lesions.
Pain: acetaminophen or Tramadolol as needed.
Bowel: Colace and Senna, PRN bisacodyl.
Bladder: Time void, PVRs, PRN straight cath.
GI Prophylaxis: Pantoprazole
DVT Prophylaxis: Mechanical,
Safety: Continue to reinforce assistance with all transfers.
Code Status:� Full code
Dispo (date/plan/equipment needs): Home with family care.� Social history reviewed.
Functional and Medical Goals: Modified Independent with ADL�s, ambulation, transfers
Discharge Destination: SNF
Summary of recommendations:
- Discharge Destination: Would recommend PT/OT in SNF setting to increase independence with ADLs, improve balance, coordination, endurance, strength, mobility, community reintegration, decreased burden of care on others and family education.
Left distal radius fracture: ortho recommendations
--Continue with immobilization in splint. Non-weight bearing to left upper extremity.
--Ice, elevation and pain control
--Follow up in the office next week for repeat x-rays and likely casting.
Left Knee pain:(ortho recommendation) she may have sustained an LCL sprain in her fall. continue weight bearing as tolerated, and suggested she utilize a gait aid to offload weight from her joint. Recommend ice, elevation and OTC medications for
symptom management.
Pain: acetaminophen or Tramadol as needed. Lidoderm patch. Avoid NSAIDS due to kidney disease
Bowel: Colace and Senna, PRN bisacodyl.
DVT Prophylaxis: Mechanical, Heparin SC
Thank you for allowing me to care for your patient. Please contact me with any questions or concerns.
This note was dictated using a voice recognition system. Please excuse any typographical errors from [facility]. If you believe there are any discrepancies, please notify our office.

Documented by User: Sebastian Parikh MD 08/19/23 20:23
Consultation - Medical
-
Referring Provider: Bi Howard
Chief Complaint: Left wrist fracture, left knee pain
History of Present Illness: Ms. Flanagan is an 82 year old female with PMH of chronic kidney disease, hypertension, hyperlipidemia, depression, anxiety and insomnia. She presented initially to [facility] ED after a fall at home on 08/15/2023.
She reports her feet got caught while swinging on a glider on her porch, and she fell forward onto her knees. She experienced onset on pain in her left wrist and left knee. She was discharged home, but returned to the ED due to continued pain in her
left knee and difficulty ambulating. She localizes pain to her lateral knee. She does report significant improvement in both her pain and ROM. She denies any low back or hip pain. Being treated for UTI with cefdinir pending culture.
She does live independently, and ambulates without assistance at baseline. She denies treatment with an orthopedist in the past.
XR Left Wrist 08/15/2023 IMPRESSION:
Comminuted angulated fracture of the distal left radial metaphysis, with possible intra-articular extension.
R Left Knee 08/15/2023 IMPRESSION:
Moderate suprapatellar joint effusion. No osseous abnormalities.
CT Pelvis 08/15/2023 IMPRESSION:
No acute abnormalities.
Degenerative disc disease at L5-S1
XR Left Hip 08/15/2023 IMPRESSION:
There is subtle cortical disruption at the lateral aspect of the left femoral head and neck suggesting nondisplaced cortical fracture which, if clinically indicated, could be further evaluated with CT or MRI.
Past Medical History:�chronic kidney disease, hypertension, hyperlipidemia, depression, anxiety and insomnia.�
Procedure History: None
Family History: None pertinent
Social History:
Functional Level Premorbidly: Independent with all activities
Functional Level Currently: Bed mobility with supine to sit�min assist, sit to stand�min assist, patient ambulates 40 feet with platform rolling walker and minimal assistance for contact-guard. Mild antalgic left lower extremity, cues for
navigating device with turns, no overt loss of balance.�Supervision, ambulate�min assist with rolling walker
Tobacco: Denies
Alcohol: Denies
Drug use: Denies
Lives with: Spouse
24-hour assistance available: Yes
Number of floors: 1
# steps to enter: 1
Driving: no
Occupation: retired
�
Allergies:
Allergy/AdvReac Type Severity Reaction Status Date / Time
Sulfa (Sulfonamide Allergy Rash Verified 08/16/23 11:55
Antibiotics)
Allergy/AdvReac Type Severity Reaction Status Date / Time
Sulfa (Sulfonamide Allergy Rash Verified 08/16/23 11:55
Antibiotics)
Review of Systems:
Constitutional: (x) abNormal _fatigue
Eye: (x) Normal _
Ear/Nose/Throat: (x) Normal _
Respiratory: (x) Normal _
Cardiovascular: (x) Normal _
Gastrointestinal: (x) Normal _
Genitourinary: (x) Normal _
Musculoskeletal: (x) knee pain, wrist pain/fracture
Integumentary: (x) abNormal _bruised toes
Neurologic: (x) Normal _
Psychiatric: (x) Normal _
Endocrine: (x) Normal _
Hematologic/Lymphatic: (x) Normal _
Allergic/Immunologic: (x) Normal _
Medications:
Active Current Visit Medication List
Category Date Time Status
Acetaminophen [Tylenol] Med 08/16/23 21:02 Active
1,000 mg PO BIDPRN PRN
Atorvastatin [Lipitor] Med 08/17/23 20:00 Active
10 mg PO DAILY@1999
Cefdinir [Omnicef] Med 08/18/23 12:15 Active
300 mg PO Q12
Docusate Sodium [Colace] Med 08/17/23 08:00 Active
100 mg PO BID
Escitalopram Oxalate [Lexapro] Med 08/17/23 08:00 Active
20 mg PO DAILY
Flush (0.9% Sodium Chloride) [Flush (Nss)] Med 08/16/23 22:00 Active
See Dose Instructions IV PER PROTOCOL
Heparin Med 08/16/23 21:02 Active
5,000 units SC Q12
Metoprolol [Lopressor] Med 08/16/23 21:00 Active
12.5 mg PO BID
Mirtazapine [Remeron] Med 08/17/23 20:00 Active
30 mg PO DAILY@1999
Polyethylene Glycol Powder [Miralax] Med 08/17/23 08:00 Active
17 grams PO DAILY
Sennosides [Senokot] Med 08/17/23 08:00 Active
8.6 mg PO BID
Triamcinolone Cream [Aristocort/Triamcinolone 0.1% Med 08/17/23 08:00 Active
Cream]
0 applic TOPICAL BID
Vitals:
Temp Pulse Resp BP Pulse Ox
98.8 F 77 18 172/95 96
08/19/23 07:00 08/19/23 07:00 08/19/23 07:00 08/19/23 07:00 08/19/23 08:00
Height 5 ft 6 in
Actual Weight 64.4 kg
Body Mass Index (BMI) 22.9
Physical Exam:
General Appearance/Observation: Well-developed, well-nourished female in no apparent distress. Left wrist splint
Pain/Comfort Assessment: left wrist, right rib side, left knee
Mood/Affect: Appropriate
Integumentary/Operative Site: Has some bruising over left toes/foot, left knee
�� Pressure Ulcer Evaluation: absent over heels.
Eyes: Conjunctiva/Lids: normal ��� Pupils: pupils equal round
Ears/Nose/Throat: oral mucosa moist,� throat clear.������������ Lips/Teeth/Gums: dentures
Neck: tightness left trapezius muscle
Cardiovascular: Heart: regular, no murmur
Pulses: dorsalis pedis 2+ bilaterally, capillary refill good in left fingers
Respiratory: Respiratory Effort/Chest Expansion: normal ������ Auscultation: Clear to auscultation bilaterally
Gastrointestinal: abdomen not tender, no distension, normal abdominal bowel sounds
Genitourinary: No Carlos
Extremities: Edema: left hand, fingers Cyanosis: None Trophic changes: None
Neurology Exam:
Orientation: Alert, Oriented to self, Time, Place
Memory: Intact recent medical issues
Comprehension: Intact
Two step command: Intact
Cranial Nerves:
�� CNII: Pupillary light reflex: Intact���
�� CN III, IV, : Extraocular muscles: Intact
�� CN V: Facial Sensation at Forehead: Intact, Maxilla: Intact, Mandible: Intact
�� CN VII: Facial movement: Symmetric
�� CN VIII: Hearing: Normal
�� CN IX/X: Speech & swallow: Normal, Position of Uvula: Midline
�� CN XI: Shoulder shrug: Symmetric
�� CN XII: Tongue protrusion: Midline
Sensory:
�� Light touch: Intact in bilateral upper and lower extremities, deferred left hand,forearm
Reflexes:
�� Biceps: 2+ bilaterally
�� Brachioradialis: 2+ right, deferred left
�� Triceps: 2+ bilaterally
�� Patellar: 2+ right, 1+ left
�� Achilles: 2+ bilaterally
�� Javier: Negative bilaterally
Musculoskeletal: Motor: (Manual muscle scale 0-5)
Muscle SA EF WE EE FF FA HF KE DF EHL PF
Right� 5 5 5 5 5 5 5 5 5 5
Left 5 3 NT 4 5 4 5 5 5
Tone: Normal in all extremities
Range of Motion: Passively within normal limits in all extremities except
Lab Results
Labs
WBC 4.4 10^3/uL (4.8-10.8) L 08/19/23 06:20
RBC 3.32 10^6/uL (4.20-5.40) L 08/19/23 06:20
Hgb 10.2 g/dL (12.0-16.0) L 08/19/23 06:20
Hct 30.4 % (37.0-47.0) L 08/19/23 06:20
MCV 91.6 fL (81.0-99.0) 08/19/23 06:20
MCH 30.7 pg (27.0-31.0) 08/19/23 06:20
MCHC 33.6 g/dL (33.0-37.0) 08/19/23 06:20
RDW 13.3 % (11.5-14.5) 08/19/23 06:20
Plt Count 166 10^3/uL (130-400) 08/19/23 06:20
MPV 11.2 fL (7.4-10.4) H 08/19/23 06:20
Abs Immat Gran (auto) 0.0 10^3/uL (0-0.05) 08/19/23 06:20
Absolute Neuts (auto) 2.5 10^3/uL (1.4-6.5) 08/19/23 06:20
Absolute Lymphs (auto) 1.3 10^3/uL (1.2-3.4) 08/19/23 06:20
Absolute Monos (auto) 0.4 10^3/uL (0.1-0.6) 08/19/23 06:20
Absolute Eos (auto) 0.2 10^3/uL (0-0.7) 08/19/23 06:20
Absolute Basos (auto) 0.0 10^3/uL (0-0.2) 08/19/23 06:20
Immature Gran % 0.5 % (0-0.5) 08/19/23 06:20
Neutrophils % 56.7 % (42.2-75.2) 08/19/23 06:20
Lymphocytes % 29.7 % (20.5-51.1) 08/19/23 06:20
Monocytes % 8.6 % (1.7-9.3) 08/19/23 06:20
Eosinophils % 3.6 % (0-6) 08/19/23 06:20
Basophils % 0.9 % (0-2) 08/19/23 06:20
Nucleated RBC % 0 % 08/19/23 06:20
Sodium 136 mmol/L (135-145) 08/19/23 06:20
Potassium 4.3 mmol/L (3.5-5.1) 08/19/23 06:20
Chloride 109 mmol/L (98-107) H 08/19/23 06:20
Carbon Dioxide 25 mmol/L (22-30) 08/19/23 06:20
BUN 21 mg/dl (7-17) H 08/19/23 06:20
Creatinine 1.0 mg/dL (0.6-1.0) 08/19/23 06:20
Estimated Creat Clear 41 ml/min 08/19/23 06:20
eGFR 56.25 08/19/23 06:20
Glucose 97 mg/dl (70-99) 08/19/23 06:20
Calcium 8.7 mg/dl (8.4-10.2) 08/19/23 06:20
Magnesium 2.0 mg/dl (1.6-2.3) 08/18/23 06:53
Total Bilirubin 1.1 mg/dl (0.2-1.3) 08/16/23 13:40
AST 29 U/L (14-36) 08/16/23 13:40
ALT 15 U/L (0-35) 08/16/23 13:40
Alkaline Phosphatase 59 U/L (38-126) 08/16/23 13:40
Creatine Kinase 119 U/L (30-135) 08/17/23 06:13
Total Protein 7.4 g/dl (6.3-8.2) 08/16/23 13:40
Albumin 4.3 g/dl (3.5-5.0) 08/16/23 13:40
Urine Color Yellow 08/16/23 14:57
Urine Clarity Clear (Clear) 08/16/23 14:57
Urine pH 5.0 (5.0-9.0) 08/16/23 14:57
Ur Specific [place] 1.015 (<1.030) 08/16/23 14:57
Urine Ketones Trace (Negative) A 08/16/23 14:57
Ur Occult Blood Reflex 2+ (Negative) A 08/16/23 14:57
Urine Nitrite (Reflex) Positive (Negative) A 08/16/23 14:57
Urine Bilirubin Negative (Negative) 08/16/23 14:57
Urine Urobilinogen Negative (Neg - 1+) 08/16/23 14:57
Leukocyte Esterase Rfl 1+ (Negative) A 08/16/23 14:57
Urine RBC 3-6 /HPF (0-2) A 08/16/23 14:57
Urine WBC (Reflex) 11-15 /HPF (0-5) A 08/16/23 14:57
Ur Squamous Epith Cells 3-5 /LPF (Few) 08/16/23 14:57
Urine Bacteria (Reflex) Many (Negative) A 08/16/23 14:57
Urine Glucose Negative (Negative) 08/16/23 14:57
Urine Albumin (Reflex) Trace (Neg - Trace) 08/16/23 14:57
SARS-CoV-2 Antigen Negative (Negative) 08/16/23 13:40
POC Glucose 97 mg/dl (70-99) 08/18/23 08:06
�
Diagnostic Results: as per HPI
Assessment Ms. Flanagan is an 82 year old female with PMH of chronic kidney disease, hypertension, hyperlipidemia, depression, anxiety and insomnia. She presented initially to [place] ED after a fall at home on 08/15/2023. XR Left Wrist with
Comminuted angulated fracture of the distal left radial metaphysis, with possible intra-articular extension and XR of Left Knee with
Moderate suprapatellar joint effusion. No osseous abnormalities. Moderate suprapatellar joint effusion. No osseous abnormalities.
Plan
PT/OT to increase independence with ADLs, improve balance, coordination, endurance, strength, mobility, community reintegration, decreased burden of care on others and family education.
Left distal radius fracture: ortho recommendations
--Continue with immobilization in splint. Non-weight bearing to left upper extremity.
--Ice, elevation and pain control
--Follow up in the office next week for repeat x-rays and likely casting.
Left Knee pain: per ortho - she may have sustained an LCL sprain in her fall. continue weight bearing as tolerated, and I suggested she utilize a gait aid to offload weight from her joint. I recommend ice, elevation and OTC medications for symptom
management.
HTN: Lopressor
CKD: Monitor BMP, Avoid NSAIDS.
HLD: Atorvastatin
Psych: Psychology consult.� Monitor mood. Lexapro
Insomnia: Mirtazapine
Pain: acetaminophen as needed.
Bowel: Colace and Senna, PRN bisacodyl.
Bladder: Time void, PVRs, PRN straight cath.
GI Prophylaxis: Pantoprazole
DVT Prophylaxis: Mechanical, heparin
Safety: Continue to reinforce assistance with all transfers.
Code Status:� Full code
Dispo (date/plan/equipment needs): Home with family care.� Social history reviewed.
Functional and Medical Goals: Modified Independent with ADL�s, ambulation, transfers
Discharge Destination: SNF
Summary of recommendations:
- Discharge Destination: Would recommend PT/OT in SNF setting to increase independence with ADLs, improve balance, coordination, endurance, strength, mobility, community reintegration, decreased burden of care on others and family education.
Left distal radius fracture: ortho recommendations
--Continue with immobilization in splint. Non-weight bearing to left upper extremity.
--Ice, elevation and pain control
--Follow up in the office next week for repeat x-rays and likely casting.
Left Knee pain:(ortho recommendation) she may have sustained an LCL sprain in her fall. continue weight bearing as tolerated, and suggested she utilize a gait aid to offload weight from her joint. Recommend ice, elevation and OTC medications for
symptom management.
Pain: acetaminophen or Tramadol as needed. Lidoderm patch. Avoid NSAIDS due to kidney disease
Bowel: Colace and Senna, PRN bisacodyl.
DVT Prophylaxis: Mechanical, Heparin SC
Attending statement:
I saw and examined the patient today. Reviewed care plan with patient, therapy, nursing, and physician housing assistant property manager. I agree with the above subjective, physical exam, and plan as documented above.
Thank you for allowing me to care for your patient. Please contact me with any questions or concerns.
This note was dictated using a voice recognition system. Please excuse any typographical errors from [facility]. If you believe there are any discrepancies, please notify our office.
[2023-08-19 15:00] VITALS: BP 141/86
--- NOTE | 2023-08-19 15:43 | CM ---
Addendum entered by Patricia Carrera 08/19/23 15:45:
Spoke with pts daughter about other acute rehab options
Agreeable to [facility] and [facility]
Referred to both in [facility]
Awaiting response
Original Note:
Pt recommended for acute rehab by PT/OT
Per [facility] - pt does not qualify
Obtained snf choices from pts daughter
pt referred to [facility]
Awaiting response
--- NOTE | 2023-08-19 18:43 | W.PN.HOSP.TC ---
Today's Communication/Plan
-
Ribs Chest X-ray
Placement Pending
Assessment / Plan
Assessment / Plan
Physical Exam
General: No Apparent Distress and Comfortable
HEENT: Normocephalic
Respiratory: Clear
Cardiac: S1/S2 and Regular Rhythm
GI: Soft, Non Tender and Normal Bowel Sounds
Musculoskeletal: No Cyanosis, No Edema and Other (Left Knee with tenderness and some swelling. Minimal erythema.). Improved left knee flexion and extension.
Skin: Warm and Dry
Neuro: Awake, Alert and AO x 3
Psych: Calm

Assessment/Plan
Generalized Weakness
Fall Recently
E. coli Urinary Tract Infection
-Status post Ceftriaxone
-Started on August 18, 2023 - Cefdinir 300 mg BID; continue
-Follow cultures, vital signs
-PT/OT
-Neurovascular checks
Right Sided Likely Chest Wall Pain
-Will order ribs x-ray to further evaluate
-Tylenol, Toradol as needed
Left distal radius fracture
Left Knee Pain Suspected Due to Left Knee Lateral Collateral Ligament Strain
-Consulted orthopedics, recommendations appreciated
-Continue WBAT to LLE but use assistive device to offload weight from the joint
-Continue splint and NWB to LUE until seen by outpatient orthopedics.
-Neurovascular checks
Acute Kidney Injury - IMPROVED OVERALL - on concern for CKD Stage 3A
-Completed trial of IV fluids
-Will consider nephrology consultation if Cr worsens
Hypertension - continue home Lopressor
Hyperlipidemia - continue home Atorvastatin
Depression - continue home escitalopram. Check QTc.
Anxiety
Insomnia - continue Mirtazapine
DVT Prophylaxis: SCDs, Heparin
Anticipated Discharge: > 48 hours
Subjective/Interval History
-
Date of Service: August 19, 2023
Patient was seen and examined. She reported pain in the right side of the her chest, worse with pressing and moving.
Objective Data
-
Labs:
Laboratory Results
08/19/23
06:20
WBC 4.4 L
Hgb 10.2 L
Hct 30.4 L
Plt Count 166
Sodium 136
Potassium 4.3
Chloride 109 H
Carbon Dioxide 25
BUN 21 H
Creatinine 1.0
Glucose 97
Calcium 8.7
Vital Signs:
Vital Signs
Temp Pulse Resp BP Pulse Ox
98.2 F 71 18 141/86 97
08/19/23 15:00 08/19/23 15:00 08/19/23 15:00 08/19/23 15:00 08/19/23 15:00
I&O
08/18/23 08/19/23 08/20/23
06:59 06:59 06:59
Intake Total 240 / 240 1170 / 1170 1080 / 1080
Output Total 120 / 120
Balance 120 / 120 1170 / 1170 1080 / 1080
[2023-08-19 20:00] LABS: Troponin I 0.016 ng/ml
[2023-08-19] MEDS: LIPITOR 10 MG PO (21:43)
[2023-08-19] MEDS: REMERON 30 MG PO (21:43)
[2023-08-19 23:51] VITALS: BP 149/69
[2023-08-20 01:28] LABS: Troponin I 0.015 ng/ml
[2023-08-20 07:00] VITALS: BP 176/93
[2023-08-20] MEDS: ARISTOCORT/TRIAMCINOLONE 0.1% CREAM 1 APPLIC TOPICAL ×2 (07:39→20:08)
[2023-08-20] MEDS: HEPARIN 5000 UNITS SC ×2 (07:40→20:09)
[2023-08-20] MEDS: OMNICEF 300 MG PO ×2 (07:40→20:00)
[2023-08-20] MEDS: LEXAPRO 20 MG PO (07:40)
[2023-08-20] MEDS: COLACE PO ×2 (07:40→20:09)
[2023-08-20] MEDS: MIRALAX PO (07:40)
[2023-08-20] MEDS: LOPRESSOR 12.5 MG PO ×2 (07:41→20:08)
[2023-08-20] MEDS: SENOKOT PO ×2 (07:41→20:09)
[2023-08-20 09:10] LABS: Troponin I 0.013 ng/ml
[2023-08-20 09:32] LABS: Blood Urea Nitrogen 27 mg/dl (7-17); Calcium 9.4 mg/dl (8.4-10.2); Carbon Dioxide 23 mmol/L (22-30); Chloride 103 mmol/L (98-107); Estimated Creatinine Clearance 45 ml/min; Glucose 133 mg/dl (70-99); Potassium 4.5 mmol/L (3.5-5.1); Sodium 137 mmol/L (135-145); eGFR > 60.00
--- NOTE | 2023-08-20 09:35 | W.PN.HOSP.TC ---
Today's Communication/Plan
-
Rib Fractures conservative management, appreciate pulmonary and cardiothoracic recommendations
Disposition efforts - appreciate case management
Assessment / Plan
Assessment / Plan
Physical Exam
General: No Apparent Distress and Comfortable
HEENT: Normocephalic
Respiratory: Clear
Cardiac: S1/S2 and Regular Rhythm
GI: Soft, Non Tender and Normal Bowel Sounds
Musculoskeletal: No Cyanosis, No Edema and Other (Left Knee with tenderness and some swelling. Minimal erythema.). Improved left knee flexion and extension.
Skin: Warm and Dry
Neuro: Awake, Alert and AO x 3
Psych: Calm

Assessment/Plan
Generalized Weakness
Fall Recently
E. coli Urinary Tract Infection
-Status post Ceftriaxone
-Started on August 18, 2023 - Cefdinir 300 mg BID; continue
-Follow cultures, vital signs
-PT/OT
-Neurovascular checks
-Echocardiogram due to falls at home, cardiomegaly on CXR and rib fractures on CXR
Right Sided Likely Chest Wall Pain Secondary to Rib Fractures
Rib Fractures on Ribs CXR on 08/19/23
-Consulted Pulmonary and Cardiothoracic Surgery, recommendations appreciated
-Tylenol, Toradol as needed
Left distal radius fracture
Left Knee Pain Suspected Due to Left Knee Lateral Collateral Ligament Strain
-Consulted orthopedics, recommendations appreciated
-Continue WBAT to LLE but use assistive device to offload weight from the joint
-Continue splint and NWB to LUE until seen by outpatient orthopedics.
-Neurovascular checks
Acute Kidney Injury - IMPROVED OVERALL - on concern for CKD Stage 3A
-Completed trial of IV fluids
-Will consider nephrology consultation if Cr worsens
Hypertension - continue home Lopressor
Hyperlipidemia - continue home Atorvastatin
Depression - continue home escitalopram. QTc 440.
Anxiety
Insomnia - continue Mirtazapine
DVT Prophylaxis: SCDs, Heparin
Anticipated Discharge: > 48 hours
Subjective/Interval History
-
Date of Service: August 20, 2023
Patient was seen and examined. She reported no chest wall pain today, or any significant pain at all.
Objective Data
-
Labs:
Laboratory Results
08/20/23 08/20/23
08:31 09:08
WBC Cancelled Pending
Hgb Cancelled Pending
Hct Cancelled Pending
Plt Count Cancelled Pending
Sodium 137
Potassium 4.5
Chloride 103
Carbon Dioxide 23
BUN 27 H
Creatinine 0.9
Glucose 133 H
Calcium 9.4
Vital Signs:
Vital Signs
Temp Pulse Resp BP Pulse Ox
97.9 F 74 18 176/93 97
08/20/23 07:00 08/20/23 07:41 08/20/23 07:00 08/20/23 07:41 08/20/23 09:10
I&O
08/19/23 08/20/23 08/21/23
06:59 06:59 06:59
Intake Total 1170 / 1170 1080 / 1080
Balance 1170 / 1170 1080 / 1080
--- NOTE | 2023-08-20 09:53 | W.PN.UPDATE ---
Update Note
Progress Note Update
82 y/o female admitted after fall
Now with right chest discomfort
cxr with minimally displaced ribs 4,5,6
No pleural effusion
No ct surgical intervention
Pain control only
[2023-08-20 11:49] VITALS: BP 132/85; PULSE 75; O2SAT 98
[2023-08-20 11:59] LABS: % Basophils 1.1 % (0-2); % Eosinophils 2.9 % (0-6); % Immature Granulocytes 0.4 % (0-0.5); % Lymphocytes 20.8 % (20.5-51.1); % Monocytes 6.7 % (1.7-9.3); % Neutrophils 68.1 % (42.2-75.2); Absolute Basophils 0.1 10^3/uL (0-0.2); Absolute Eosinophils 0.2 10^3/uL (0-0.7); Absolute Lymphocytes 1.1 10^3/uL (1.2-3.4); Absolute Monocytes 0.4 10^3/uL (0.1-0.6); Absolute Neutrophils 3.6 10^3/uL (1.4-6.5); Hematocrit 32.6 % (37.0-47.0); Hemoglobin 10.9 g/dL (12.0-16.0); Mean Corp Hgb Conc. 33.4 g/dL (33.0-37.0); Mean Corpuscular Volume 89.8 fL (81.0-99.0); Mean Platelet Volume 11.2 fL (7.4-10.4); Nucleated Red Blood Cells % 0 %; Platelet Count 216 10^3/uL (130-400); Red Blood Cell Count 3.63 10^6/uL (4.20-5.40); Red Cell Dist. Width 13.3 % (11.5-14.5); White Blood Cell Count 5.3 10^3/uL (4.8-10.8)
[2023-08-20 13:48] LABS: Troponin I < 0.012 ng/ml
[2023-08-20 15:06] VITALS: BP 144/79
--- NOTE | 2023-08-20 15:29 | CON.PUL ---
Consultation
Consultation Request
Date/Time Consultation Requested: 08-20-23
Date/Time Consultation Performed: 08-20-23
Requesting Provider: Hospitalist
Performing Provider: Dr Abad
Reason for Consultation: rib fractures
Medical History
-
Chief Complaint: R chest pain
History of Present Illness:
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 Returned on 08-16 with LLE pain. Seen by Ortho, L knee pain and
swelling, suspected LCL sprain. Then c/o R chest wall pain, CXR showed minimally displaced R rib fractures 4, 5, 6, CTSx rec no surgical intervention but only pain control
Single general medical floor, she reported the incident leading to left upper extremity fracture for which she has a cast in place
She is aware of radiology diagnosis of right sided rib fractures. Fortunately patient is hemodynamic and respiratory noel stable on room air, her right chest pain has improved significantly with as needed Tylenol only
Past Medical History
Past Medical History: Other (see A&P for PMH/PSH)
Social History
Tobacco: Non-smoker
Alcohol: None
Drug: None
Personal:
Living: With Family
Employment: Not Employed
Family History
Family History: Reviewed & Not Pertinent
Allergies / Home Medications
Allergies
Allergy/AdvReac Type Severity Reaction Status Date / Time
Sulfa (Sulfonamide Allergy Rash Verified 08/16/23 11:55
Antibiotics)
Home Medications
Medication Instructions Recorded Confirmed Last Taken Type
acetaminophen 500 mg tablet 1,000 mg PO BIDPRN PRN mild pain 08/16/23 08/16/23 08/16/23 History
(Tylenol Extra Strength)
atorvastatin 10 mg tablet 10 mg PO DAILY@2000 High 08/16/23 08/16/23 08/15/23 History
Cholesterol
escitalopram oxalate 20 mg tablet 20 mg PO DAILY Mental 08/16/23 08/16/23 08/16/23 History
Health/Anxiety
metoprolol tartrate 25 mg tablet 12.5 mg PO BID Blood Pressure 08/16/23 08/16/23 08/16/23 History
mirtazapine 30 mg tablet 30 mg PO DAILY@1999 Mental 08/16/23 08/16/23 08/15/23 History
Health/Anxiety
triamcinolone acetonide 0.1 % 1 applic topical BID apply to 08/16/23 08/16/23 08/14/23 History
topical cream right ankle/left elbow/lower back
Review of Systems
-
Musculoskeletal: Other (Right-sided chest wall pain, left knee pain)
Vitals / Labs / Diagnostic Testing
Vital Signs
Temp Pulse Resp BP Pulse Ox
99 F 90 18 144/79 98
08/20/23 15:06 08/20/23 15:06 08/20/23 15:06 08/20/23 15:06 08/20/23 15:06
Lab Data
08/20/23 09:08
08/20/23 08:31
Microbiology
08/16/23 22:04 Blood/Venous Blood Culture - Preliminary
No Growth in 72 hours- Final report to follow
08/16/23 22:04 Blood/Venous Blood Culture - Preliminary
No Growth in 72 hours- Final report to follow
08/16/23 14:57 Urine Urine Culture - Final
Escherichia coli
Diagnostic Testing:
Physical Exam
-
HEENT: Normocephalic and Moist Mucous Membranes
Cardiovascular: Regular Rhythm, Peripheral Edema (n) and Calf Tenderness (n)
Respiratory: Clear and Non-Labored Respirations
GI: Soft, Non Distended, Non Tender and Normal Bowel Sounds
Neurology: Awake, AO x 3 and No Motor Deficits
Skin: Dry
General: Respiratory Distress (n)
Exam:
LUE cast
Assessment
-
Assessment:
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 Returned on 08-16 with LLE pain. Seen by Ortho, L knee pain and
swelling, suspected LCL sprain. Then c/o R chest wall pain, CXR showed minimally displaced R rib fractures 4, 5, 6, CTSx rec no surgical intervention but only pain control.
Impression:
R chest wall pain
Minimally displaced R rib fractures 4, 5, 6
Recent fall PARKING ASSISTANT
L distal radius fracture, L knee effusion/LCL sprain
E coli UTI
Conditions PARKING ASSISTANT:
HTN
CKD
HLD
Depression
Anxiety
Insomnia
Plan:
Respiratory stable on room air
Able to speak in full sentences
Hemodynamically stable
Good airway control
Right chest wall pain secondary to rib fractures, fortunately these fractures are not significantly displaced on checks x-ray, there is no signs of pulmonary contusion or pleural effusions
Case reviewed also by Dr. Shaan Guajardo from CT surgery, no indication for surgical intervention but only pain control
Case reviewed with Dr. Sorensen at the bedside, answered her questions, management of care rib fractures will be only conservative, making emphasis on pain control and embracing incentive spirometry as tolerated, noted that she is taking only oral
Tylenol as needed, she reports her right chest pain is much improved today
Reconsult as needed
--- NOTE | 2023-08-20 16:51 | CONSULT.CT ---
Consultation
-
Date/Time Consultation Requested: 08/20/2023
Date/Time Consultation Performed: 08/20/2023
Requesting Provider: Dr. Howard
Performing Provider: Anali cassidy
Reason for Consultation: rib fx.
Patient History
Physicians
Family Physician: Dr. Namita Naqvi
History of Present Illness
Patient is a 82-year-old female with past medical history of chronic kidney disease, hypertension, hyperlipidemia, depression, anxiety and insomnia. She initially presented to [facility] ED after a fall at home on 08/15/2023. She reports
she fell at home and fell forward onto her knees. She reports onset of pain in her left wrist and left knee. She was initially discharged to home but returned to the emergency department due to continued pain in the left knee and difficulty
ambulating. She was treated for a distal left radial fracture and currently has a cast in place. She also reports right-sided chest discomfort
Cardiothoracic surgery was consulted for rib fx. chest x-ray with minimally displaced ribs 4, 5 and 6. No pleural effusion
No thoracic surgery intervention indicated
Pain control only.
Past Medical History
Past Medical History: HTN, Hypercholesterolemia, Renal Insufficiency and Other (See HPI)
Past Surgical History
Past Surgical History: None
Dental History
N/A
Family History
Mother: N/A
Father: N/A
Social History
Alcohol: None
Drug: None
Tobacco: Non-Smoker
Personal:
Living: With Spouse
Employment: Retired
Allergies
Allergy/AdvReac Type Severity Reaction Status Date / Time
Sulfa (Sulfonamide Allergy Rash Verified 08/16/23 11:55
Antibiotics)
Home Medications
Medication Instructions Recorded Confirmed Type
acetaminophen 500 mg tablet 1,000 mg PO BIDPRN PRN mild pain 08/16/23 08/16/23 History
(Tylenol Extra Strength)
atorvastatin 10 mg tablet 10 mg PO DAILY@1999 High 08/16/23 08/16/23 History
Cholesterol
escitalopram oxalate 20 mg tablet 20 mg PO DAILY Mental 08/16/23 08/16/23 History
Health/Anxiety
metoprolol tartrate 25 mg tablet 12.5 mg PO BID Blood Pressure 08/16/23 08/16/23 History
mirtazapine 30 mg tablet 30 mg PO DAILY@1999 Mental 08/16/23 08/16/23 History
Health/Anxiety
triamcinolone acetonide 0.1 % 1 applic topical BID apply to 08/16/23 08/16/23 History
topical cream right ankle/left elbow/lower back
Review of Systems
-
History Source: Patient
General: Reports Fatigue
HEENT: Reports No Symptoms
Respiratory: Reports No Symptoms
Cardiac: Reports No Symptoms
Abdomen/GI: Reports No Symptoms
: Reports No Symptoms
Musculoskeletal: Reports Arthralgias and Joint Pain
Skin: Reports No Symptoms
Neurological: Reports Weakness
Vascular: Reports No Symptoms
Physical Exam
Vital Signs
Temp 99 F 08/20/23 15:06
Temp route: Oral 08/20/23 15:06
Pulse 90 08/20/23 15:06
Resp Rate 18 08/20/23 15:06
Blood pressure 144/79 08/20/23 15:06
Blood pressure extremity used: Right upper arm 08/20/23 15:06
Position: Sitting 08/20/23 15:06
SaO2 98 08/20/23 15:06
Oxygen Mode of Delivery Room air 08/20/23 15:06
Pulse Ox at Rest 98 08/20/23 11:49
Can the patient verbally communicate their pain? Yes 08/20/23 08:00
Pain scale ratin 08/20/23 00:00
Actual Weight 141 lb 15.643 oz 08/16/23 13:31
Body Mass Index (BMI) 22.9 08/16/23 13:31
Supine- Blood Pressure 147/70 08/19/23 09:19
Supine- Pulse 79 08/19/23 08:45
Sitting- Blood Pressure 132/85 08/20/23 11:49
Sitting- Pulse 75 08/20/23 11:49
Heart rate after activity 85 08/20/23 11:49
Oxygen Saturation with Activity 99 08/20/23 11:49
Labs
08/20/23 09:08
08/20/23 08:31
Troponin I < 0.012 ng/ml 08/20/23 13:14
Urinalysis
Urine Color Yellow 08/16/23 14:57
Urine Clarity Clear (Clear) 08/16/23 14:57
Urine pH 5.0 (5.0-9.0) 08/16/23 14:57
Ur Specific Eagle 1.015 (<1.030) 08/16/23 14:57
Urine Ketones Trace (Negative) A 08/16/23 14:57
Ur Occult Blood Reflex 2+ (Negative) A 08/16/23 14:57
Urine Bilirubin Negative (Negative) 08/16/23 14:57
Leukocyte Esterase Rfl 1+ (Negative) A 08/16/23 14:57
Urine RBC 3-6 /HPF (0-2) A 08/16/23 14:57
Urine WBC (Reflex) 11-15 /HPF (0-5) A 08/16/23 14:57
Ur Squamous Epith Cells 3-5 /LPF (Few) 08/16/23 14:57
Urine Bacteria (Reflex) Many (Negative) A 08/16/23 14:57
Urine Glucose Negative (Negative) 08/16/23 14:57
Urine Albumin (Reflex) Trace (Neg - Trace) 08/16/23 14:57
Exam
General: Well Developed, Well Nourished, No Apparent Distress and Comfortable
HEENT: Normocephalic and Anicteric
Neck: Trachea Midline
Respiratory: Clear
Cardiac: Regular Rhythm
GI: Soft, Non Tender and Non Distended
Rectal: Deferred by Provider
Skin: Warm
Neuro: Awake, Alert, Oriented and AO x 3
Extremities: Pulses
Lymph: No Lymphadenopathy
Psych: Calm
Assessment / Plan
-
Assessment: Generalized weakness
Status post recent fall
Left distal radius fracture
Effusion of left knee
Chronic kidney disease
Hypertension
Hyperlipidemia
Depression
Anxiety
Insomnia
Plan:
No thoracic surgical intervention
Pain control only
Will sign off please call with any questions
[2023-08-20] MEDS: TYLENOL 1000 MG PO (20:08)
[2023-08-20] MEDS: REMERON 30 MG PO (20:09)
[2023-08-20] MEDS: LIPITOR 10 MG PO (20:09)
[2023-08-20 23:30] VITALS: BP 98/51
[2023-08-21 07:27] LABS: % Basophils 0.7 % (0-2); % Immature Granulocytes 0.5 % (0-0.5); % Lymphocytes 40.7 % (20.5-51.1); % Monocytes 7.7 % (1.7-9.3); % Neutrophils 46.4 % (42.2-75.2); Absolute Eosinophils 0.2 10^3/uL (0-0.7); Absolute Lymphocytes 1.8 10^3/uL (1.2-3.4); Absolute Monocytes 0.3 10^3/uL (0.1-0.6); Hematocrit 33.5 % (37.0-47.0); Hemoglobin 11.2 g/dL (12.0-16.0); Mean Corp Hgb Conc. 33.4 g/dL (33.0-37.0); Mean Corpuscular Hgb 30.7 pg (27.0-31.0); Mean Corpuscular Volume 91.8 fL (81.0-99.0); Nucleated Red Blood Cells % 0 %; Platelet Count 204 10^3/uL (130-400); Red Blood Cell Count 3.65 10^6/uL (4.20-5.40); Red Cell Dist. Width 13.2 % (11.5-14.5); White Blood Cell Count 4.3 10^3/uL (4.8-10.8)
[2023-08-21 07:35] VITALS: BP 154/80
[2023-08-21 08:04] LABS: Blood Urea Nitrogen 27 mg/dl (7-17); Calcium 9.3 mg/dl (8.4-10.2); Carbon Dioxide 25 mmol/L (22-30); Chloride 107 mmol/L (98-107); Estimated Creatinine Clearance 34 ml/min; Glucose 92 mg/dl (70-99); Potassium 4.4 mmol/L (3.5-5.1); Sodium 137 mmol/L (135-145); eGFR 45.19
[2023-08-21] MEDS: ARISTOCORT/TRIAMCINOLONE 0.1% CREAM 1 APPLIC TOPICAL ×2 (08:40→20:29)
[2023-08-21] MEDS: LEXAPRO 20 MG PO (08:40)
[2023-08-21] MEDS: MIRALAX PO (08:40)
[2023-08-21] MEDS: SENOKOT PO (08:40)
[2023-08-21] MEDS: COLACE PO (08:40)
[2023-08-21] MEDS: LOPRESSOR 12.5 MG PO ×2 (08:40→20:24)
[2023-08-21] MEDS: HEPARIN 5000 UNITS SC ×2 (08:40→20:23)
[2023-08-21] MEDS: OMNICEF 300 MG PO ×2 (08:40→20:18)
[2023-08-21 12:04] VITALS: BP 114/75; PULSE 77; O2SAT 97
[2023-08-21 15:20] VITALS: BP 145/77
--- NOTE | 2023-08-21 18:34 | W.PN.HOSP.TC ---
Today's Communication/Plan
-
Doing well
Monitor renal function
Incentive spirometer
Will need to keep an eye on the creatinine
Assessment / Plan
Assessment / Plan
Physical Exam
General: No Apparent Distress and Comfortable
HEENT: Normocephalic
Respiratory: Clear to Auscultation Bilaterally
Cardiac: S1/S2 and Regular Rhythm
GI: Soft, Non Tender and Normal Bowel Sounds
Musculoskeletal: No Cyanosis, No Edema and Other (Left Knee with tenderness and some swelling. - IMPROVED). IMPROVED left knee flexion and extension.
Skin: Warm and Dry
Neuro: Awake, Alert and AO x 3
Psych: Calm

Assessment/Plan
Generalized Weakness
Fall Recently
E. coli Urinary Tract Infection
-Status post Ceftriaxone
-Started on August 18, 2023: Cefdinir 300 mg BID; continue
-Follow cultures, vital signs
-PT/OT
-Neurovascular checks
-Follow-up on echocardiogram ordered due to falls at home, cardiomegaly on CXR and rib fractures on CXR
Right Sided Likely Chest Wall Pain Secondary to Rib Fractures
Rib Fractures on Ribs CXR on 08/19/23
-Consulted Pulmonary and Cardiothoracic Surgery, recommendations appreciated: continue pain control, no surgical intervention
-Tylenol, Toradol as needed
-Incentive spirometer
Left distal radius fracture
Left Knee Pain Suspected Due to Left Knee Lateral Collateral Ligament Strain
-Consulted orthopedics, recommendations appreciated
-Continue WBAT to LLE but use assistive device to offload weight from the joint
-Continue splint and NWB to LUE until seen by outpatient orthopedics.
-Neurovascular checks
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
-Completed trial of IV fluids
-Cr rising again on August 21, 2023
-Monitor renal function via AM labs
-Will consider nephrology consultation if Cr worsens
Hypertension - continue home Lopressor
Hyperlipidemia - continue home Atorvastatin
Depression - continue home escitalopram. QTc 440.
Anxiety
Insomnia - continue Mirtazapine
DVT Prophylaxis: SCDs, Heparin
Anticipated Discharge: > 48 hours
Subjective/Interval History
-
Date of Service: August 21, 2023
Patient was seen and examined. She reported no chest pain, and is able to get up and ambulate with a walker with the help of nurse/PT/OT.
Objective Data
-
Labs:
Laboratory Results
08/21/23
06:03
WBC 4.3 L
Hgb 11.2 L
Hct 33.5 L
Plt Count 204
Sodium 137
Potassium 4.4
Chloride 107
Carbon Dioxide 25
BUN 27 H
Creatinine 1.2 H
Glucose 92
Calcium 9.3
Vital Signs:
Vital Signs
Temp Pulse Resp BP Pulse Ox
98.1 F 75 18 145/77 98
08/21/23 15:20 08/21/23 15:20 08/21/23 15:20 08/21/23 15:20 08/21/23 15:20
I&O
08/20/23 08/21/23 08/22/23
06:59 06:59 06:59
Intake Total 1080 / 1080 780 / 780 1140 / 1140
Balance 1080 / 1080 780 / 780 1140 / 1140
[2023-08-21] MEDS: SENOKOT 8.59999999999999964 MG PO (20:17)
[2023-08-21] MEDS: REMERON 30 MG PO (20:18)
[2023-08-21] MEDS: LIPITOR 10 MG PO (20:19)
[2023-08-21] MEDS: COLACE 100 MG PO (20:19)
[2023-08-21] MEDS: TYLENOL 1000 MG PO (20:30)
[2023-08-21 23:41] VITALS: BP 127/72
[2023-08-22 06:18] LABS: % Eosinophils 4.5 % (0-6); % Immature Granulocytes 0.5 % (0-0.5); % Lymphocytes 37.8 % (20.5-51.1); % Monocytes 10.5 % (1.7-9.3); % Neutrophils 45.7 % (42.2-75.2); Absolute Eosinophils 0.2 10^3/uL (0-0.7); Absolute Lymphocytes 1.5 10^3/uL (1.2-3.4); Absolute Monocytes 0.4 10^3/uL (0.1-0.6); Absolute Neutrophils 1.8 10^3/uL (1.4-6.5); Hematocrit 30.6 % (37.0-47.0); Mean Corp Hgb Conc. 32.7 g/dL (33.0-37.0); Mean Corpuscular Hgb 30.2 pg (27.0-31.0); Mean Corpuscular Volume 92.4 fL (81.0-99.0); Mean Platelet Volume 10.6 fL (7.4-10.4); Nucleated Red Blood Cells % 0 %; Platelet Count 197 10^3/uL (130-400); Red Blood Cell Count 3.31 10^6/uL (4.20-5.40); Red Cell Dist. Width 13.2 % (11.5-14.5)
[2023-08-22 06:32] LABS: Blood Urea Nitrogen 34 mg/dl (7-17); Calcium 9.6 mg/dl (8.4-10.2); Carbon Dioxide 28 mmol/L (22-30); Chloride 102 mmol/L (98-107); Estimated Creatinine Clearance 37 ml/min; Glucose 92 mg/dl (70-99); Potassium 4.6 mmol/L (3.5-5.1); Sodium 138 mmol/L (135-145); eGFR 50.17
[2023-08-22 07:35] VITALS: BP 138/87
[2023-08-22] MEDS: LOPRESSOR 12.5 MG PO ×2 (07:52→19:42)
[2023-08-22] MEDS: LEXAPRO 20 MG PO (07:52)
[2023-08-22] MEDS: MIRALAX 17 GRAMS PO (07:52)
[2023-08-22] MEDS: ARISTOCORT/TRIAMCINOLONE 0.1% CREAM 1 APPLIC TOPICAL ×2 (07:52→19:41)
[2023-08-22] MEDS: SENOKOT 8.59999999999999964 MG PO ×2 (07:52→19:37)
[2023-08-22] MEDS: COLACE 100 MG PO ×2 (07:52→19:36)
[2023-08-22] MEDS: HEPARIN 5000 UNITS SC ×2 (07:52→19:38)
[2023-08-22] MEDS: OMNICEF 300 MG PO ×2 (07:52→19:37)
--- NOTE | 2023-08-22 10:00 | W.PN.HOSP.TC ---
Today's Communication/Plan
-
PT/OT
SNF rehab
continue oral abx
Assessment / Plan
Assessment / Plan
Assessment/Plan
Generalized Weakness
Fall Recently
E. coli Urinary Tract Infection, hayes sensitive
-Status post Ceftriaxone
-Started on August 18, 2023: Cefdinir 300 mg BID; continue
-Follow cultures, vital signs
-PT/OT
-Neurovascular checks
-Follow-up on echocardiogram ordered due to falls at home, cardiomegaly on CXR and rib fractures on CXR
Right Sided Likely Chest Wall Pain Secondary to Rib Fractures
Rib Fractures on Ribs CXR on 08/19/23
-Consulted Pulmonary and Cardiothoracic Surgery, recommendations appreciated: continue pain control, no surgical intervention
-Tylenol, Toradol as needed
-Incentive spirometer
Left distal radius fracture
Left Knee Pain Suspected Due to Left Knee Lateral Collateral Ligament Strain
-Consulted orthopedics, recommendations appreciated
-Continue WBAT to LLE but use assistive device to offload weight from the joint
-Continue splint and NWB to LUE until seen by outpatient orthopedics.
-Neurovascular checks
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
-Completed trial of IV fluids
-Cr rising again on August 21, 2023
-Monitor renal function via AM labs
-Will hold on nephrology consultation with Creat stable
Hypertension - continue home Lopressor
Hyperlipidemia - continue home Atorvastatin
Depression - continue home escitalopram. QTc 440.
Anxiety
Insomnia - continue Mirtazapine
DVT Prophylaxis: SCDs, Heparin
Will need SNF rehab, await input from CM
Anticipated Discharge: 24 - 48 hours
Subjective/Interval History
-
Date of Service: August 22, 2023
Awake, alert, conversant
Objective Data
-
Labs:
Laboratory Results
08/22/23
05:06
WBC 4.0 L
Hgb 10.0 L
Hct 30.6 L
Plt Count 197
Sodium 138
Potassium 4.6
Chloride 102
Carbon Dioxide 28
BUN 34 H
Creatinine 1.1 H
Glucose 92
Calcium 9.6
Vital Signs:
Vital Signs
Temp Pulse Resp BP Pulse Ox
97.7 F 83 18 138/87 97
08/22/23 07:35 08/22/23 07:35 08/22/23 07:35 08/22/23 07:35 08/22/23 08:00
I&O
08/21/23 08/22/23 08/23/23
06:59 06:59 06:59
Intake Total 780 / 780 1140 / 1140
Balance 780 / 780 1140 / 1140
Review of Systems
-
History Source: Patient and Coordinated Provider (WES Dykes in room)
Constitutional: Denies Fever
EENT: Reports No Symptoms Reported
Respiratory: Reports No Symptoms
Cardiac: Reports No Symptoms
Abdomen/GI: Reports No Symptoms
Musculoskeletal: Reports Joint Pain (left distal radius fx wrapped)
Neuro: Denies Dizzy
Physical Exam
-
General: Well Developed, Well Nourished and No Apparent Distress
HEENT: Normocephalic, Atraumatic and Moist Mucous Membranes
Respiratory: Clear to Auscultation; Negative Wheezes, Rales or Rhonchi
Cardiac: Regular Rhythm and S1/S2
GI: Soft, Nontender and Nondistended
Genito-urinary: No Costovertebral Tender
Musculoskeletal: No Clubbing, No Cyanosis and No Edema
Skin: Dry
Neuro: Awake, Alert and Oriented
--- NOTE | 2023-08-22 14:09 | CM ---
Addendum entered by Chetna Dong 08/22/23 14:32:
Bedside meeting with pt and dtr with updates
Requesting reconsideration at [facility] due to improvements with therapy
Outreach to [facility] admissions/Amber
Original Note:
CM reviewed chart- ADC 1-2 days
Pt has been accepted at [facility] and [facility] pending bed availability
Pt denied at [facility] due and GVAR
Call with Gayatri at [facility] [place]- referral is pending and she will review
Of note, PMR recommending SNF
Discharge Disposition- [facility] acute rehab vs SNF
[2023-08-22 15:15] VITALS: BP 147/85
[2023-08-22 15:27] VITALS: BP 154/92; PULSE 87; O2SAT 97
[2023-08-22] MEDS: LIPITOR 10 MG PO (19:37)
[2023-08-22] MEDS: REMERON 30 MG PO (19:38)
[2023-08-22] MEDS: TYLENOL 1000 MG PO (19:45)
[2023-08-22 23:13] VITALS: BP 131/73
[2023-08-23 06:30] LABS: % Basophils 0.7 % (0-2); % Eosinophils 4.3 % (0-6); % Immature Granulocytes 0.9 % (0-0.5); % Lymphocytes 35.2 % (20.5-51.1); % Neutrophils 46.9 % (42.2-75.2); Absolute Eosinophils 0.2 10^3/uL (0-0.7); Absolute Lymphocytes 1.6 10^3/uL (1.2-3.4); Absolute Monocytes 0.5 10^3/uL (0.1-0.6); Absolute Neutrophils 2.1 10^3/uL (1.4-6.5); Hematocrit 30.5 % (37.0-47.0); Hemoglobin 10.1 g/dL (12.0-16.0); Mean Corp Hgb Conc. 33.1 g/dL (33.0-37.0); Mean Corpuscular Hgb 30.5 pg (27.0-31.0); Mean Corpuscular Volume 92.1 fL (81.0-99.0); Mean Platelet Volume 10.6 fL (7.4-10.4); Nucleated Red Blood Cells % 0 %; Platelet Count 204 10^3/uL (130-400); Red Blood Cell Count 3.31 10^6/uL (4.20-5.40); Red Cell Dist. Width 13.3 % (11.5-14.5); White Blood Cell Count 4.4 10^3/uL (4.8-10.8)
[2023-08-23 06:37] LABS: Blood Urea Nitrogen 31 mg/dl (7-17); Calcium 9.5 mg/dl (8.4-10.2); Carbon Dioxide 29 mmol/L (22-30); Chloride 105 mmol/L (98-107); Estimated Creatinine Clearance 31 ml/min; Glucose 84 mg/dl (70-99); Potassium 5.1 mmol/L (3.5-5.1); Sodium 137 mmol/L (135-145); eGFR 41.06
[2023-08-23 07:00] VITALS: BP 150/88
[2023-08-23] MEDS: HEPARIN 5000 UNITS SC (08:16)
[2023-08-23] MEDS: OMNICEF 300 MG PO (08:16)
[2023-08-23] MEDS: ARISTOCORT/TRIAMCINOLONE 0.1% CREAM 1 APPLIC TOPICAL (08:16)
[2023-08-23] MEDS: LOPRESSOR 12.5 MG PO (08:17)
[2023-08-23] MEDS: SENOKOT 8.59999999999999964 MG PO (08:17)
[2023-08-23] MEDS: COLACE PO (08:17)
[2023-08-23] MEDS: LEXAPRO 20 MG PO (08:17)
[2023-08-23] MEDS: MIRALAX PO (08:17)
--- NOTE | 2023-08-23 12:20 | CM ---
Addendum entered by Patricia Carrera 08/23/23 13:44:
Spoke with daughter Jania - dave [facility]
Confirmed bed availability with [facility] at facility
Discussed IMM with pt and daughter
Pts daughter stating she would like to transport pt to facility
Plan - discharge to [facility]
Report - [phone]
Fax - [phone]
Original Note:
Pt medically ready for d/c
[facility] bed availability
Called daughter Jania to confirm choice - LM with call back number for her to return call
--- NOTE | 2023-08-23 14:48 | W.PN.HOSP.TC ---
Today's Communication/Plan
-
dc to SNF
Assessment / Plan
Assessment / Plan
Assessment/Plan
Generalized Weakness
Fall Recently
E. coli Urinary Tract Infection, hayes sensitive
Resolved Toxic Metabolic Encephalopathy
from UTI
-Status post Ceftriaxone
-Started on August 18, 2023: Cefdinir 300 mg BID; continue
-Follow cultures, vital signs
-PT/OT
-Neurovascular checks
-echocardiogram: Normal left ventricular chamber size. Normal left ventricular systolic
�function. Normal regional wall motion. Normal left ventricular wall thickness.
�Left ventricular ejection fraction is 60% by volumetric assessment. Normal
�diastolic function.
�Mitral valve opens normally. Mitral annular calcification. Mild mitral
�regurgitation.
�
Right Sided Likely Chest Wall Pain Secondary to Rib Fractures
Rib Fractures on Ribs CXR on 08/19/23
-Consulted Pulmonary and Cardiothoracic Surgery, recommendations appreciated: continue pain control, no surgical intervention
-Tylenol, Toradol as needed
-Incentive spirometer
Left distal radius fracture
Left Knee Pain Suspected Due to Left Knee Lateral Collateral Ligament Strain
-Consulted orthopedics, recommendations appreciated
-Continue WBAT to LLE but use assistive device to offload weight from the joint
-Continue splint and NWB to LUE until seen by outpatient orthopedics.
-will need follow up in their office, discussed with LIVIA Aleman. Their office will contact [facility] to set up follow up appt
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
-Completed trial of IV fluids
-Cr rising again on August 21, 2023
-Monitor renal function via AM labs
Hypertension - continue home Lopressor
Hyperlipidemia - continue home Atorvastatin
Depression - continue home escitalopram. QTc 440.
Anxiety
Insomnia - continue Mirtazapine
DVT Prophylaxis: SCDs, Heparin
just been notified that she has been accepted to [facility]
More than 30 minutes spent in discharge including
Final examination of the patient
Summarizing hospital stay
Instructions for continuing care to all relevant caregivers
Preparation of discharge records, prescriptions, and referral forms
Total time spent (in minutes): 45
Anticipated Discharge: Today
Subjective/Interval History
-
Date of Service: August 23, 2023
Generally feels well, dgt believes her mentation is back to baseline
Objective Data
-
Labs:
Laboratory Results
08/23/23
05:18
WBC 4.4 L
Hgb 10.1 L
Hct 30.5 L
Plt Count 204
Sodium 137
Potassium 5.1
Chloride 105
Carbon Dioxide 29
BUN 31 H
Creatinine 1.3 H
Glucose 84
Calcium 9.5
Vital Signs:
Vital Signs
Temp Pulse Resp BP Pulse Ox
98.2 F 90 18 150/88 96
08/23/23 07:00 08/23/23 08:17 08/23/23 07:00 08/23/23 08:17 08/23/23 14:17
I&O
08/22/23 08/23/23 08/24/23
06:59 06:59 06:59
Intake Total 1140 / 1140 1320 / 1320
Balance 1140 / 1140 1320 / 1320
Review of Systems
-
History Source: Patient and Family (reviewed with dgt, Antonia)
Constitutional: Denies Fever
EENT: Reports No Symptoms Reported
Respiratory: Reports No Symptoms
Cardiac: Reports No Symptoms
Abdomen/GI: Reports No Symptoms
Musculoskeletal: Reports Joint Pain (left distal radius fx wrapped)
Neuro: Denies Dizzy
Physical Exam
-
General: Well Developed, Well Nourished and No Apparent Distress
HEENT: Normocephalic, Atraumatic and Moist Mucous Membranes
Respiratory: Clear to Auscultation; Negative Wheezes, Rales or Rhonchi
Cardiac: Regular Rhythm and S1/S2
GI: Soft, Nontender and Nondistended
Genito-urinary: No Costovertebral Tender
Musculoskeletal: No Clubbing, No Cyanosis and No Edema
Skin: Dry
Neuro: Awake, Alert and Oriented
--- NOTE | 2023-08-23 16:43 | W.DS.TRANS ---
DC Summary - Physician/Allergy/Immunology
-
Discharge Instructions:
Discharge Diagnosis/Procedures Urinary Tract Infection, Toxic Metabolic
Encephalopathy, fall with left distal radius fx
Diet Regular
Activity With assistance,With Walker
Driving Restrictions No driving
Bathing Restrictions keep wrist splint out of water
Blood Work CBC, BMP, Mag in 1-2 weeks
Instructions:
Stand-Alone Forms:
Changes to Home Medications: Yes
Discharge Medications:
DC Medications w/original date entered in [employer]
acetaminophen 500 mg tablet (Tylenol Extra Strength) 1,000 mg PO BIDPRN PRN mild pain 08/16/23
atorvastatin 10 mg tablet 10 mg PO DAILY@1999 High Cholesterol 08/16/23
escitalopram oxalate 20 mg tablet 20 mg PO DAILY Mental Health/Anxiety 08/16/23
metoprolol tartrate 25 mg tablet 12.5 mg PO BID Blood Pressure 08/16/23
mirtazapine 30 mg tablet 30 mg PO DAILY@1999 Mental Health/Anxiety 08/16/23
triamcinolone acetonide 0.1 % topical cream 1 applic topical BID apply to right ankle/left elbow/lower back 08/16/23
cefdinir 300 mg capsule 300 mg PO Q12 #6 caps 08/23/23
docusate sodium 100 mg capsule 100 mg PO BID #0 caps 08/23/23
polyethylene glycol 3350 17 gram oral powder packet (HealthyLax) 17 g PO DAILY #0 ea 08/23/23
sennosides 8.6 mg tablet (Senna Lax) 8.6 mg PO BID #0 tabs 08/23/23
Home Medication Changes
Cefdinir for next 3 days
Bowel program of Miralax, Colace and Senna
Pending Results: No
== END 2023-08-23 15:49 | DRG 682 ==
LOC: 4 EAST ACU 08:35
PROVIDERS: Physician Assistant; ADMITTING PHYSICIAN Hospitalist; ATTENDING PHYSICIAN Internal Medicine; CONSULT PHYSICIAN Orthopaedic Surgery; CONSULT PHYSICIAN Physical Medicine & Rehabilitation; CONSULT PHYSICIAN Thoracic Surgery (Cardiothoracic Vascular Surgery); EMERGENCY PHYSICIAN Emergency Medicine; FAMILY PHYSICIAN Family Medicine; OTHER PHYSICIAN Internal Medicine Pulmonary Disease
DX: N17.9 Acute kidney failure, unspecified (principal); G92.8 Other toxic encephalopathy; N39.0 Urinary tract infection, site not specified; M25.462 Effusion, left knee; N18.31 Chronic kidney disease, stage 3a; I12.9 Hypertensive chronic kidney disease with stage 1 through stage 4 chronic kidney disease, or unspecified chronic kidney disease; E78.00 Pure hypercholesterolemia, unspecified; F32.A Depression, unspecified; F41.9 Anxiety disorder, unspecified; R29.6 Repeated falls; B96.20 Unspecified Escherichia coli [E. coli] as the cause of diseases classified elsewhere; I34.81 Nonrheumatic mitral (valve) annulus calcification; G47.00 Insomnia, unspecified; M51.37 Other intervertebral disc degeneration, lumbosacral region; W19.XXXD Unspecified fall, subsequent encounter; S22.41XD Multiple fractures of ribs, right side, subsequent encounter for fracture with routine healing; S83.422D Sprain of lateral collateral ligament of left knee, subsequent encounter; Y92.009 Unspecified place in unspecified non-institutional (private) residence as the place of occurrence of the external cause; Z74.09 Other reduced mobility; S52.502D Unspecified fracture of the lower end of left radius, subsequent encounter for closed fracture with routine healing; Z11.52 Encounter for screening for COVID-19; Z88.2 Allergy status to sulfonamides
CPT/HCPCS: 29125; 70450; 71101; 71111; 72192; 73110; 73502; 73564; 73630; 80048; 80053; 81003; 81015; 82550; 82962; 83735; 84484; 85025; 87040; 87077; 87086; 87186; 87502; 87811; 93005; 93306; 96374; 97110; 97116; 97530; 97535; 99283; 99285

== ENCOUNTER → 2023-08-26 09:38 | Outpatient (REF) | payer MEDICARE, SELFPAY ==
[2023-08-26 11:13] LABS: Hematocrit 30.6 % (37.0-47.0); Hemoglobin 10.1 g/dL (12.0-16.0); Mean Corpuscular Hgb 30.4 pg (27.0-31.0); Mean Corpuscular Volume 92.2 fL (81.0-99.0); Mean Platelet Volume 11.1 fL (7.4-10.4); Platelet Count 248 10^3/uL (130-400); Red Blood Cell Count 3.32 10^6/uL (4.20-5.40); Red Cell Dist. Width 13.4 % (11.5-14.5); White Blood Cell Count 5.2 10^3/uL (4.8-10.8)
[2023-08-26 11:34] LABS: Blood Urea Nitrogen 27 mg/dl (7-17); Calcium 9.6 mg/dl (8.4-10.2); Carbon Dioxide 27 mmol/L (22-30); Chloride 101 mmol/L (98-107); Glucose 91 mg/dl (70-99); Magnesium 2.2 mg/dl (1.6-2.3); Potassium 4.7 mmol/L (3.5-5.1); Sodium 137 mmol/L (135-145); eGFR 56.25
== END ==
LOC: OLABWHC 09:38
PROVIDERS: ATTENDING PHYSICIAN Family Medicine
DX: N39.0 Urinary tract infection, site not specified (principal); I10 Essential (primary) hypertension; N18.9 Chronic kidney disease, unspecified
CPT/HCPCS: 36415; 80048; 83735; 85027

== ENCOUNTER 2024-09-17 04:23 | Inpatient (IN) | payer MEDICARE, SELFPAY ==
[2024-09-17] VITALS (20 sets, daily range): BP systolic 123–193; BP diastolic 81–123; BMI 23.4
[2024-09-17 01:25] LABS: Glucose - Point of Care 148 mg/dl (70-99)
--- NOTE | 2024-09-17 01:36 | ED.CVA ---
History of Present Illness
General
Chief Complaint: CVA/TIA Symptoms
Source: patient, family and ambulance crew
Time Seen by Provider: 09/17/24 01:24
Nursing documentation reviewed up to this point in time: agreed with
Onset of Stroke Symptoms
Onset of symptoms known: Yes
Date of onset of symptoms: 09/17/24
Time of onset of symptoms: 12:30
History of Present Illness
History of Present Illness:
83-year-old female presents to the emergency department after possible syncopal episode. She had an episode of dizziness and then had a syncopal episode. She fell landing on her left hip. When she was found by her daughter with whom she lives,
they reported slurred speech and left-sided facial droop. 911 was called and paramedics arrived finding her slurring her speech with a noticeable facial droop. Patient's blood sugar was checked and it was in the 180s. And route to the hospital,
patient's neurological symptoms resolved. Upon arrival, stroke alert was called. At that time NIH stroke scale was 0. Dr. Honorio Pelaez, neurology called and we discussed treatment. At this time he recommended CT and CTA. Because of patient's
obviously deformed left hip, patient to get a CT scan of the pelvis as well.
Vital signs are stable. Patient not hypoxic
Nursing note reviewed. I agree with nursing documentation up to this point in time.
Home Meds and allergies reviewed.
NUMBER AND COMPLEXITY OF PROBLEMS ADDRESSED AT THE ENCOUNTER
� Chronic conditions affecting care: Hypertension, hyperlipidemia, anxiety
� Acute Exacerbation and/or Progression of Chronic Illness:
� Differential Diagnosis includes: TIA, CVA, cerebral bleed, hip fracture
AMOUNT AND/OR COMPLEXITY OF DATA TO BE REVIEWED AND ANALYZED
I performed an independent evaluation of the following and my interpretation is:
EKG: Atrial fibrillation rapid ventricular response rate of 102.
Pulse Ox: Not Hypoxic
Montessori Preschool Teacher: Sinus Rhythm
CT: See below
X-rays:
Ultrasound:
Laboratory Studies:
Other:
Review of other/old records: Discharge summary from 08/23/2023. Patient had a UTI and toxic metabolic encephalopathy
Clinical information was obtained by an independent historian:
Prescriptions/Medications Considered but not given: Anticoagulation. She is due for hip surgery likely in the morning. Hospitalist will touch base with orthopedic surgeon to see if heparin should be started only to be discontinued
in the a.m.
Further testing considered but not performed:
RISK OF COMPLICATIONS AND/OR MORBIDITY OR MORTALITY OF PATIENT MANAGEMENT
Social determinants of health affecting care: Good Social Support daughters at the bedside
Discussion with other providers: Hospitalist for admission, Dr. Honorio Pelaez, neurology, Dr. Richar El, orthopedic surgery, Dr. Kevin Ghosh, neurovascular intervention at [facility]
Escalation of care including admission/observation vs risk of discharge considered: After being observed in the emergency department, patient is
Update:
Review of Systems
Review of Systems
Allergies reviewed?: Yes
Other source history: family
All Other Systems: ROS reviewed and negative except as documented in HPI and ROS
Constitutional: Reports no symptoms
EENT: Reports no symptoms
Respiratory: Reports no symptoms
Cardiac: Reports syncope; Denies chest pain, diaphoresis or palpitations
ABD/GI: Reports no symptoms
: Reports no symptoms
Musculoskeletal: Reports joint pain
Skin: Reports no symptoms
Neurological: Reports dizzy and other
Endocrine: Reports no symptoms
Hematologic/Lymphatic: Reports no symptoms
Psychiatric: Reports no symptoms
Phy Exam
General Physical Exam
General Presentation: well appearing and no apparent distress
General Skin: warm and dry
General Habitus: normal
General Mental: alert
General Hydration: appears well hydrated
ENT Exam
ENT Exam: EOMI, pharynx normal, neck supple and normocephalic
Eye Exam
Eye Exam: PERRL, cornea clear and conjunctiva normal
Cardiovascular Exam
Cardiovascular Exam: regular rate/rhythm, no edema, no murmur and normal peripheral pulses
Pulmonary Exam
Pulmonary Exam: lungs clear, no respiratory distress, no rales, no crackles, no rhonchi, no stridor, no wheezing and no cough
Gastrointestinal Exam
Gastrointestinal Exam: normal bowel sounds, non tender, soft, no organomegaly, no pulsatile mass and non distended
Neurological Exam
Neurological Exam: alert, oriented x3, no motor deficits and speech normal
Musculoskeletal Exam
Musculoskeletal Exam: joint swelling, neuro vasc intact and other (Left hip deformity. Left leg is shortened and externally rotated)
Skin Exam
Skin Exam: normal color, warm/dry, no rash and no petechia
Psychiatric Exam
Psychiatric Exam: normal mood/affect and anxious
Scores
NIH Stroke Score
Level of Consciousness: 0 - Alert
LOC Questions: 0-Answers both correctly
LOC Commands: 0-Performs both correctly
Best Horizontal Gaze: 0-Normal
Visual Rea: 0=Normal, no visual loss
Facial Palsy: 0=Normal, symmetrical
Motor - Right Arm: 0=No drift 10 seconds
Motor - Left Arm: 0=No drift 10 seconds
Motor - Right Le-No drift 5 seconds
Motor - Left Le-No drift 5 seconds
Limb Ataxia: 0-Absent
Sensation: 0-Normal
Best Language: 0-No aphasia
Dysarthria: 0-Normal
Extinction and Inattention: 0-No abnormality
Total Score:: 0
Course
Orders/Labs/Results
Orders:
Orders
09/17/24 01:24
Electrocardiogram (*1) Stat
Reason for Study: Other
Other Reason for Exam: neuro symptoms
CT HEAD STROKE ALERT W/o Cont Urgent
Comment:
Reason For Exam: slurring/ syncope
CT HEAD/NECK ANG STROKE ALERT Urgent
Comment:
Reason For Exam: slurring/ syncope
CT Pelvis W/o Iv Contrast Urgent
Comment:
Reason For Exam: left hip deformity
Bedside Glucose- Treatment ONCE
Cardiac Monitoring- Treatment ONCE
EKG- Treatment ONCE
09/17/24 01:30
Complete Blood Count/With Diff Urgent
Comprehensive Metabolic Panel Urgent
Erythrocyte Sed Rate Urgent
PTT Urgent
Prothrombin Time Urgent
09/17/24 01:35
Morphine Sulfate 4 mg .ROUTE .STK-MED ONE
Morphine Sulfate 4 mg IV NOW STA
Ondansetron Injectable [Zofran] 4 mg .ROUTE .STK-MED ONE
Ondansetron Injectable [Zofran] 4 mg IV NOW STA
09/17/24 01:36
Urinalysis Reflex To Culture Urgent
Date Specimen was Collected: 09/17/24
Time Specimen was Collected: 03:40
09/17/24 02:31
EKG [Electrocardiogram (*1)] Urgent
Reason for Study: Atrial Fibrillation
09/17/24 02:32
EKG- Treatment ONCE
09/17/24 Breakfast
NPO
Allow oral meds: Yes
Allow clear liquids: No
Abnormal Lab Results
09/17/24 09/17/24
01:24 01:30
Abs Immat Gran (auto) 0.1 H 10^3/uL
(0-0.05)
Immature Gran % 0.9 H %
(0-0.5)
Monocytes % 9.9 H %
(1.7-9.3)
ESR 21 H mm/hour
(0-20)
BUN 23 H mg/dl
(7-17)
Creatinine 1.6 H mg/dL
(0.6-1.0)
Glucose 159 H mg/dl
(70-99)
POC Glucose 148 H mg/dl
(70-99)
09/17/24 01:30
03/03/25 01:30
Vital Signs
Initial and Last Documented VS:
Initial Vital Signs
Temp Pulse Resp BP Pulse Ox
98.1 F 88 18 175/106 97
09/17/24 01:22 09/17/24 01:22 09/17/24 01:22 09/17/24 01:22 09/17/24 01:22
Last Documented Vital Signs
Temp Pulse Resp BP Pulse Ox
98.1 F 105 16 153/99 98
09/17/24 01:22 09/17/24 03:20 09/17/24 03:20 09/17/24 03:00 09/17/24 03:20
*Radiology
Radiology exam reviewed: radiology read reviewed
*Pulse Oximetry
Patient hypoxic: no
*EKG
Interpreted by ED Provider?: Yes
Interpretation: abnormal
Rhythm: a-fib
Culver: normal axis
Interval: normal UT interval
QRS Pattern: normal QRS
Ischemia: no ischemia
*Mont[employer]ori Preschool Teacher Interpretation
Rhythm: a-fib
*Critical Care Note
Total Time (30-74mins, 75-104mins- exclusive of procedures): 35 (Critical care statement: A total of 35 minutes of critical care time was provided for this patient. This time is separate from time utilized to perform the aforementioned documented
procedures. Aggregate critical care time includes only time during which I was engaged in work directl)
Update Note
Update Note:
Comparison August 16, 2023
CT head without contrast
IMPRESSION:
No acute intracranial abnormality. No acute territorial infarct, hemorrhage, mass effect, or midline shift. Mild microangiopathy and volume loss.
Dr. El consulted.
Spoke with family regarding transfer. Patient was not sure that she wanted to be transferred to an outside facility. Daughter requested that we talk to neurovascular intervention doc at [facility] to see what the options are. Daughter states that
it is unlikely that she will want her mom transferred. I agreed to call for a second opinion to give the family options. They understand that if they stay at [facility], mom will be comfort measures only regarding the stroke symptoms.
Patient and daughter understand that if symptoms worsen they still can be transferred to an outside facility but if they choose to remain at [facility], IAT is not an option.
Spoke with Dr. Kevin Ta, [facility] neurovascular intervention doc. He stated that based on age, location and the paucity of symptoms, he would not aggressively pursue this with intravascular retrieval.
Spoke with patient and daughter again. In the interim patient and daughter discussed transfer. They are both in agreement that they absolutely do not want to be transferred. Patient understands that if symptoms worsen throughout the night, she
may need need to readdress the situation again but she does understand that definitive IAT therapy is not available here. Patient to be made comfort measures only for the occlusion of the middle division of the M2 branch of the right MCA while at
[facility]. They have no further questions. I feel that they have good understanding of the discussion.
Patient's wishes made aware to the hospitalist. He will admit the patient.
ED Attending Note
-
Portions of this chart may have been created with voice recognition software.� Occasional wrong word or��sound alike� substitutions may have occurred due to the inherent limitations of voice recognition software.
Discharge Plan
Departure
Patient Disposition: Admit
Date of Disposition: 09/17/24
Time of Disposition: 02:07
Admit to: Telemetry
Presentation/result/management discussed w/ accepting MD/DO: Hospitalist
Condition: Fair
Discharge Problem:
Closed fracture of left hip, Syncope and collapse, Acute right MCA stroke, New onset a-fib
Prescriptions:
No Action
atorvastatin 10 mg Tablet
10 mg PO DAILY@1999
triamcinolone acetonide 0.1 % Cream
1 applic TOPICAL BID
mirtazapine 30 mg Tablet
30 mg PO DAILY@1999
metoprolol tartrate 25 mg Tablet
12.5 mg PO BID
bupropion HCl 150 mg Tablet Extended Release 24 Hr
150 mg PO DAILY
Interventions
Interventions:
*Risk Screen - Suicide Last Done: 09/17/24 01:22
*General Assessment Last Done: 09/17/24 01:22
*Neglect/Abuse Screening Last Done: 09/17/24 01:22
ED- Fall Risk Assessment Last Done: 09/17/24 01:47
*ED COVID-19 Vaccine History Last Done: 09/17/24 01:22
ED- Cardiac Assessment Last Done: 09/17/24 01:47
ED-Musculoskeletal Assessment Last Done: 09/17/24 01:47
ED- Neurological Assessment Last Done: 09/17/24 01:47
ED- Pulmonary Assessment Last Done: 09/17/24 01:47
ED-Skin Assessment Last Done: 09/17/24 01:47
ED Swallowing Screen Last Done: 09/17/24 02:41
Discharge Date and Time
Print Language: CAMEROONIAN
[2024-09-17] MEDS: MORPHINE SULFATE 4 MG IV (01:37)
[2024-09-17] MEDS: ZOFRAN 4 MG IV (01:38)
[2024-09-17 01:48] LABS: % Basophils 0.7 % (0-2); % Eosinophils 1.7 % (0-6); % Immature Granulocytes 0.9 % (0-0.5); % Lymphocytes 32.5 % (20.5-51.1); % Monocytes 9.9 % (1.7-9.3); % Neutrophils 54.3 % (42.2-75.2); Absolute Eosinophils 0.1 10^3/uL (0-0.7); Absolute Immature Granulocytes 0.1 10^3/uL (0-0.05); Absolute Lymphocytes 1.9 10^3/uL (1.2-3.4); Absolute Monocytes 0.6 10^3/uL (0.1-0.6); Absolute Neutrophils 3.1 10^3/uL (1.4-6.5); Hematocrit 38.5 % (37.0-47.0); Hemoglobin 12.7 g/dL (12.0-16.0); Mean Corpuscular Hgb 29.7 pg (27.0-31.0); Mean Corpuscular Volume 90.2 fL (81.0-99.0); Mean Platelet Volume 10.1 fL (7.4-10.4); Nucleated Red Blood Cells % 0 %; Platelet Count 233 10^3/uL (130-400); Red Blood Cell Count 4.27 10^6/uL (4.20-5.40); Red Cell Dist. Width 13.2 % (11.5-14.5); White Blood Cell Count 5.8 10^3/uL (4.8-10.8)
[2024-09-17 01:49] LABS: Erythrocyte Sed Rate 21 mm/hour (0-20)
[2024-09-17 01:53] LABS: INR 1.03; PT 13.8 Sec (11.4-14.6)
[2024-09-17 01:54] LABS: ALT (SGPT) 17 U/L (0-35); APTT 25.4 Sec (23.4-35.0); AST (SGOT) 27 U/L (14-36); Albumin 4.4 g/dl (3.5-5.0); Alkaline Phosphatase 65 U/L (38-126); Blood Urea Nitrogen 23 mg/dl (7-17); Calcium 9.8 mg/dl (8.4-10.2); Carbon Dioxide 27 mmol/L (22-30); Chloride 103 mmol/L (98-107); Estimated Creatinine Clearance 25 ml/min; Glucose 159 mg/dl (70-99); Potassium 4.3 mmol/L (3.5-5.1); Sodium 138 mmol/L (135-145); Total Bilirubin 0.9 mg/dl (0.2-1.3); Total Protein 7.6 g/dl (6.3-8.2)
--- NOTE | 2024-09-17 03:56 | HPS.HSE ---
Family Physician
-
Family Physician: Namita Naqvi
Chief Complaint
-
Fall, slurred speech.
History of Present Illness
This is an 83-year-old female with past medical history significant for hypertension, hyperlipidemia, depression/anxiety who lives with spouse independently and presents to the emergency department following a fall.
Patient reported that she was in the bathroom when she suddenly felt dizzy and spun around falling to the floor. He had significant pain in her left lower extremity and was unable to get up on her own. At the time of the fall the patient had a
stroke alert called due to slurred speech and facial droop. She did not lose consciousness.
Daughter reported that about a week ago the patient had a cough. She attributed this to upper respiratory viral infection. Patient herself reports normal oral intake. She denies feeling dizzy or lightheaded. She denied having any palpitations.
She denied having any chest pain.
She denies urinary symptoms. She is not currently on any blood thinners.
On arrival in the emergency department she was afebrile, blood pressure was 175/106 with a pulse of 120. Initial ECG showed a rate of 110 with undetermined rhythm. The second ECG shows a rate of around 100 with atrial fibrillation and no acute ST
or T wave changes. CBC was unremarkable. Electrolytes BUN/creatinine were mostly stable with a slight rising creatinine to 1.6 from a baseline of 1.
CT of the head was nonacute. She had a CT angio which showed occlusion of the middle division M2 branch of the right MCA along the mid to posterior insular cortex. Bilateral vertebral arteries are widely patent and bilateral common carotid and
internal carotid arteries are widely patent without significant stenosis. She has heterogeneous thyroid gland with multiple hypodense and peripherally calcified nodules.
CT pelvis without contrast showing acute displaced intertrochanteric left femoral neck fracture with surrounding intramuscular hemorrhage and edema in the anterior and posterior compartments. Mild bladder wall thickening which may be due to
cystitis.
Medical History
Past Medical History
Past Medical History: Reports HTN, Hypercholesterolemia and Psychiatric (anxiety)
Past Surgical History: Reports None
Social History
Tobacco: Non-smoker
Alcohol: None
Drug: None
Personal:
Living: With Family
Employment: Retired
Family History
Family History: Not pertinent
Allergies / Home Medications
Allergies reflects when Allergies were last updated in [employer].
Home Medications with original date entered in [employer]
Allergy/Medication List:
Allergies
Allergy/AdvReac Type Severity Reaction Status Date / Time
Sulfa (Sulfonamide Allergy Rash Verified 09/17/24 01:53
Antibiotics)
Home Medications
atorvastatin 10 mg tablet 10 mg PO DAILY@1999 High Cholesterol 08/16/23
metoprolol tartrate 25 mg tablet 12.5 mg PO BID Blood Pressure 08/16/23
mirtazapine 30 mg tablet 30 mg PO DAILY@1999 Mental Health/Anxiety 08/16/23
triamcinolone acetonide 0.1 % topical cream 1 applic topical BID apply to right ankle/left elbow/lower back 08/16/23
bupropion HCl 150 mg 24 hr tablet, extended release 150 mg PO DAILY 09/17/24
Review of Systems
-
History Source: Patient and Family
Constitutional: Reports No Symptoms
EENT: Reports No Symptoms
Respiratory: Reports No Symptoms
Cardiac: Reports No Symptoms
Abdomen/GI: Reports No Symptoms
: Reports No Symptoms
Musculoskeletal: Reports No Symptoms
Skin: Reports No Symptoms
Neurological: Reports Dizzy
Endocrine: Reports No Symptoms
Hematologic/Lymphatic: Reports No Symptoms
Psych: Reports No Symptoms
Physical Exam
Vital Signs
Vital Signs
Temp Pulse Resp BP Pulse Ox
98.1 F 105 16 153/99 98
09/17/24 01:22 09/17/24 03:20 09/17/24 03:20 09/17/24 03:00 09/17/24 03:20
Physical Exam
General: Well Developed, Well Nourished and Pain
HEENT: NormoCephalic, Anicteric, Moist mucous membranes and Atraumatic
Respiratory: Clear
Cardiac: S1/S2 and Irregular Rhythm
Breast: Deferred by me
GI: Soft, Non Tender, Non Distended and Normal Bowel Sounds
Rectal: Deferred by Provider
Genito-urinary: Deferred by me
Musculoskeletal: No Clubbing, No Cyanosis, No Edema and Other (intact distal pulses bilaterally)
Skin: Warm and Dry
Neuro: AO x 3, No Motor Deficits, Cranial Nerves Intact, No Sensory Deficits and Slurred Speech (slight slurring of speech but daughter reports this is baseline due to lack teeth); No Facial Droop
Hematologic/Lymphatic: No Lymphadenopathy
Psych: Calm
Laboratory Results
-
09/17/24 01:30
09/17/24 01:30
Laboratory Results
PT 13.8 Sec (11.4-14.6) 09/17/24 01:30
INR 1.03 09/17/24 01:30
APTT 25.4 Sec (23.4-35.0) 09/17/24 01:30
Total Bilirubin 0.9 mg/dl (0.2-1.3) 09/17/24 01:30
AST 27 U/L (14-36) 09/17/24 01:30
ALT 17 U/L (0-35) 09/17/24 01:30
Alkaline Phosphatase 65 U/L (38-126) 09/17/24 01:30
Data Reviewed
-
CT Scan: Report Reviewed by me
Medical Tests (Nuc Med, Echo, EKG etc): Image Personally Visualized and interpreted
Lab Data: Labs Reviewed by me
Old Records: Reviewed
Impression/Plan
-
IMPRESSION:
83 y.o with h/o htn, hld presenting with vertigo/dizziness, slurred speech and fall with left hip fracture. Found to be in atrial fibrillation. The slurred speech and facial droop is now resolved. CT head negative. CT angio with occlusion of the
middle division M2 branch of the right MCA. Labs otherwise unremarkable.
PLAN:
1. Acute CVA - Given new findings of atrial fibrillation, M2 branch occlusion/thrombus, clear large intracranial and extracranial carotids, likely embolic source. Complicated by fall and displaced fracture with hematoma. ED d/w Dr. Kevin Ta,
[facility] neurovascular intervention doc. He stated that based on age, location and the paucity of symptoms, he would not aggressively pursue this with intravascular retrieval. Family also prefers not to be transferred.
- admit to telemetry
- given resolution of symptoms not TPA candidate
- BP 175/106, improving symptoms, can start chronic ac when stabilized in about 24 hours depending on further symptoms, mri and neuro
- aspirin/statin for now, d/c aspirin when placed on AC
- neurology consulted
2. AFIB - New onset afib, rate controlled and hypertensive, [id number] = 6
- increase metoprol tartrate to 25 bid
- check tsh
- echo in am (last echo 1 year ago with normal ef)
- npo for now
- ac initiation after procedure today and depending on neuro recs
- cardiology consult
3. Left Hip fracture
- npo
- no thinners , DVT ppx with lovenox after surgical eval
- pain control
- no weight bearing
4. HTN
- permissive hypertension, hydralazine for SBP > 180
- continue her metoprolol
5. NATHALIE - Cr up from bl of 1 to 1.3. Likely prerenal. s/p contrast
- IV fluids with NS for contrast ppx
DVT PPX - heparin sq for now
Code status - full code
[2024-09-17 04:10] LABS: Urine Albumin 2+ (Neg - Trace); Urine Bilirubin Negative (Negative); Urine Character Clear (Clear); Urine Color Yellow; Urine Glucose Negative (Negative); Urine Ketone Negative (Negative); Urine Leukocyte 2+ (Negative); Urine Nitrite Negative (Negative); Urine Occult Blood 2+ (Negative); Urine Specific Gravity 1.005 (<1.030); Urine Urobilinogen Negative (Neg - 1+)
[2024-09-17 04:32] LABS: Urine Bacteria Moderate (Negative); Urine Squamous Cell 0-2 /LPF (Few); Urine White Cell 16-20 /HPF (0-5)
[2024-09-17] MEDS: NSS 1000 IV ×3 (05:54→18:37)
[2024-09-17] MEDS: TYLENOL PO ×4 (06:03→17:56)
[2024-09-17 06:15] LABS: Hematocrit 35.8 % (37.0-47.0); Mean Corp Hgb Conc. 33.5 g/dL (33.0-37.0); Mean Corpuscular Hgb 29.9 pg (27.0-31.0); Mean Corpuscular Volume 89.3 fL (81.0-99.0); Mean Platelet Volume 10.9 fL (7.4-10.4); Platelet Count 235 10^3/uL (130-400); Red Blood Cell Count 4.01 10^6/uL (4.20-5.40); Red Cell Dist. Width 13.1 % (11.5-14.5); White Blood Cell Count 10.2 10^3/uL (4.8-10.8)
[2024-09-17] MEDS: OFIRMEV 100 IV (06:25)
--- NOTE | 2024-09-17 06:36 | W.PN.UPDATE ---
Update Note
Progress Note Update
-Reported by the nursing staff that the daughter at bedside and concerning as slurred speech is getting worse than earlier, NIH score 4. Patient received 4mg of morphine in ER as well.
-Discussed with the daughter at bedside. Daughter declined another head CT due to limitation of treatment options as mentioned by [facility] neurovascular intervention due to age, locations, etc. Patient also is not candidate for tPA.
Neuro consulted on admission and daughter would like to discuss further treatment plan with neuro team.
[2024-09-17 06:44] LABS: HDL Cholesterol 47 mg/dl; LDL Cholesterol, Calculated 89 mg/dl; Total Cholesterol 162 mg/dl (50-199); Triglyceride 130 mg/dl (10-149); Very Low Density Lipoprotein 26 mg/dl (0-30)
[2024-09-17 07:09] LABS: TSH Reflex To Free T4 1.99 uIU/ml (0.47-4.68)
--- NOTE | 2024-09-17 08:22 | CON.NEURO ---
Consultation
Order
Date of Consultation: 09/17/24
Requesting Provider: Adrian Spears MD
Reason for Consult: stroke
Neurology Consultation Note.
HPI: This is an 83-year-old RH woman who presented to [facility] on 09/17/2021 status post fall. According to the patient and her family the patient had an unwitnessed fall today at the bathroom. Prior to the fall, she reported feeling
dizzy and disoriented, describing it as getting 'all spun up' and not knowing which direction she was facing. The fall occurred around 12:30-12:45 AM.
Initially after the fall, the patient's daughter reported that she couldn't respond well and was slurring her speech. However, when seen later, she had stabilized and was able to talk and use her arms. During the hospitalization, upon transfer to
the current unit, it was noted that her left arm was weakness and she was dysarthric.
Ms. 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
ER VS: 175/106, 88�115, afebrile.
EKG: A-fib
PDMP:none
Labs: Glucose�159, LDL�89, creatinine 1.6, UA�positive for WBCs, leukocyte esterase, bacteria
CT head wo contrast�no acute abnormalities.
CTA head/neck�distal M2 occlusion
CT pelvis(09/17/2024) comminuted, displaced and impacted intertrochanteric left femoral neck fracture.
MAR: Morphine 4 mg IV administered 01:37 on 09/17/2024.
PMH:HTN, DLP, CKD, MDD, CHASITY, osteoporosis, h/o left radial fracture, insomnia
PSH: bilateral cataract surgery
SH: , independent in ADLs, non-smoker, mother of 6
FH: Not contributory to current presentation
All: Sulfamethoxazole, Trimethoprim
ROS: Positive for left-sided weakness, dysarthria, encephalopathy
General: Well developed. In no acute distress.
Cardio: irregular rate and rhythm. Extremities are without cyanosis or edema.
Neuro:
Mental Status: Lethargic, oriented to name, location, person. Impaired attention. Follows simple requests. Mild left hemineglect. Nonfluent.
Cranial Nerves: Pupils are equally round, surgical. EOMs full. Upper left visual neglect. No ptosis. Severe left facial weakness, preserved hearing AU. Moderate to severe dysarthria
Motor: Left leg�plegic, left PT drifts to the bed in less than 10 seconds.
Reflexes: Negative grasp. Limited exam due to positioning, fracture
Sensory: Limited due to poor attention
Coordination: No tremors myoclonic movements. No dysmetria on the right
Gait: deferred
NIH stroke score: 12
Assessment and Plan:
I. Acute R MCA territory stroke, R M2 occlusion. Likely etiology�embolic
II. New onset of A-Fib. [id number] Score-6.
III. Multifactorial encephalopathy (vascular, toxic)
IV. Displaced and impacted intertrochanteric left femoral neck fracture.
-Continue Telemetry monitoring
-NPO
-Dysphagia evaluation
-Aspiration precautions
-Restart antihypertensive medications if BP>140/90 mmHg if neurologically stable in 24 to 48 hours after stroke onset
-Brain MRI without chasity
-TTE
-ASA 81 mg QD or 300 mg QD PRN if not safe to swallow. Systemic anticoagulation to be started in 1-2 weeks if clinically stable and no contraindications.
-Lipitor 40 mg QHS.
-Please check HbA1C
-Ortho follow-up
-PT.
-DVT prophylaxis.
-Case was discussed with patient's daughter and son.
I personally reviewed all radiology and labs along with past medical records pertinent to current medical problems. Total time spent in patient care is 60 minutes.
Thank you for allowing us to participate in the care of this patient. We will continue to follow. Please do not hesitate to contact us with any questions or concerns.
Subjective/Objective
Subjective Data
Date of Service: September 17, 2024
Objective Data
Vital Signs
Temp Pulse Resp BP Pulse Ox
36.6 C 96 12 125/81 96
09/17/24 06:56 09/17/24 06:56 09/17/24 06:56 09/17/24 06:56 09/17/24 06:56
Lab Results
09/17/24 05:15
09/17/24 01:30
PT 13.8 Sec (11.4-14.6) 09/17/24 01:30
INR 1.03 09/17/24 01:30
APTT 25.4 Sec (23.4-35.0) 09/17/24 01:30
Sodium 138 mmol/L (135-145) 09/17/24 01:30
Potassium 4.3 mmol/L (3.5-5.1) 09/17/24 01:30
BUN 23 mg/dl (7-17) H 09/17/24 01:30
Glucose 159 mg/dl (70-99) H 09/17/24 01:30
Calcium 9.8 mg/dl (8.4-10.2) 09/17/24 01:30
LDL Cholesterol, Calc 89 mg/dl 09/17/24 05:15
Patient Allergies
Sulfa (Sulfonamide Antibiotics) Allergy (Verified 09/17/24 01:53)
Rash
CVA Assessment
NIH Stroke Score
Level of Consciousness: 1 - Arousable
LOC Questions: 0-Answers both correctly
LOC Commands: 0-Performs both correctly
Best Horizontal Gaze: 0-Normal
Visual Rea: 1=Partial hemianopia
Facial Palsy: 2=Partial paralysis
Motor - Right Arm: 0=No drift 10 seconds
Motor - Left Arm: 2=Partial vs. gravity
Motor - Right Le-No movement
Motor - Left Le-No drift 5 seconds
Limb Ataxia: 0-Absent
Best Language: 0-No aphasia
Dysarthria: 2-Severe slurring
Extinction and Inattention: 0-No abnormality
Medications
-
Active Medications
Generic Name Dose Route Start Last Admin
Trade Name Freq PRN Reason Stop Dose Admin
Acetaminophen 650 mg 09/17/24 05:06 09/17/24 06:03
Acetaminophen 325 Mg Tablet PO 10/15/24 05:05 Not Given
Q4HWA BONNIE
Acetaminophen 650 mg 09/17/24 05:06
Acetaminophen 650 Mg Rectal Suppository RECTAL 10/15/24 05:05
Q4HPRN PRN
RAO, mild pain, or temp >100.4F
Acetaminophen 650 mg 09/17/24 05:06
Acetaminophen 325 Mg Tablet PO 10/15/24 05:05
Q4HPRN PRN
RAO, mild pain, or temp >100.4F
Aspirin 81 mg 09/17/24 08:00
Aspirin 81 Mg Chewable Tablet PO 10/15/24 07:59
DAILY BONNIE
Atorvastatin Calcium 20 mg 09/17/24 18:00
Atorvastatin (Lipitor) 20 Mg Tablet PO 10/15/24 17:59
QPM BONNIE
Docusate Sodium 100 mg 09/17/24 20:00
Docusate Sodium 100 Mg Capsule PO 10/15/24 19:59
BID BONNIE
Heparin Sodium 5,000 units 09/17/24 08:00
Heparin 5,000 Units/Ml 1 Ml Vial SC 10/15/24 07:59
Q8 BONNIE
Hydromorphone HCl 0.25 mg 09/17/24 05:06
Hydromorphone 0.25 Mg/0.5 Ml Syringe IV 10/01/24 05:05
Q1HPRN PRN
severe pain
Sodium Chloride 1,000 mls @ 80 mls/hr 09/17/24 05:06 09/17/24 05:54
Nss IV 1,000 mls
.[id number] BONNIE Administration
Magnesium Hydroxide 30 ml 09/17/24 05:06
Milk Of Magnesia 30 Ml Cup PO 10/15/24 05:05
DAILYPRN PRN
constipation
Metoprolol Tartrate 25 mg 09/17/24 08:00
Metoprolol 25 Mg Regular Release Tablet PO 10/15/24 07:59
BID BONNIE
Metoprolol Tartrate 5 mg 09/17/24 05:06
Metoprolol 5 Mg/5 Ml Vial IV 10/15/24 05:05
Q6HPRN PRN
HR > 120 or SBP > 180
Mirtazapine 30 mg 09/17/24 20:00
Mirtazapine 30 Mg Tablet PO 10/15/24 19:59
DAILY@2000 BONNIE
Oxycodone HCl 5 mg 09/17/24 05:06
Oxycodone 5 Mg Regular Release Tablet PO 10/01/24 05:05
Q4HPRN PRN
mild pain
Sennosides 17.2 mg 09/17/24 20:00
Sennosides (Senokot) 8.6 Mg Tablet PO 10/15/24 19:59
BID BONNIE
Sodium Chloride 0 flush 09/17/24 06:00
Sodium Chloride 0.9% (Flush) Syringe IV 10/15/24 05:59
PER PROTOCOL BONNIE
Tamsulosin HCl 0.4 mg 09/17/24 05:06
Tamsulosin 0.4 Mg Capsule PO 10/15/24 05:05
DAILYPRN PRN
bladder scan volume > 400 mL
Triamcinolone Acetonide 1 applic 09/17/24 08:00
Tramcinolone Acetonide 0.1% (Cream) 15 Gram Tube TOPICAL 10/15/24 07:59
BID BONNIE
Home Medications
�Medication �Instructions �Recorded
atorvastatin 10 mg tablet 10 mg PO DAILY@1999 High 08/16/23
Cholesterol
metoprolol tartrate 25 mg tablet 12.5 mg PO BID Blood Pressure 08/16/23
mirtazapine 30 mg tablet 30 mg PO DAILY@1999 Mental 08/16/23
Health/Anxiety
triamcinolone acetonide 0.1 % 1 applic topical BID apply to 08/16/23
topical cream right ankle/left elbow/lower back
bupropion HCl 150 mg 24 hr tablet, 150 mg PO DAILY 09/17/24
extended release
Vital Signs and Labs
-
Vital Signs and Labs:
Vital Signs
Temp Pulse Resp BP Pulse Ox
36.6 C 96 12 125/81 96
09/17/24 06:56 09/17/24 06:56 09/17/24 06:56 09/17/24 06:56 09/17/24 06:56
Lab Results
09/17/24 05:15
09/17/24 01:30
PT 13.8 Sec (11.4-14.6) 09/17/24 01:30
INR 1.03 09/17/24 01:30
APTT 25.4 Sec (23.4-35.0) 09/17/24 01:30
Sodium 138 mmol/L (135-145) 09/17/24 01:30
Potassium 4.3 mmol/L (3.5-5.1) 09/17/24 01:30
BUN 23 mg/dl (7-17) H 09/17/24 01:30
Glucose 159 mg/dl (70-99) H 09/17/24 01:30
Calcium 9.8 mg/dl (8.4-10.2) 09/17/24 01:30
LDL Cholesterol, Calc 89 mg/dl 09/17/24 05:15
Medications
-
Medications:
Generic Name Dose Route Start Last Admin
Trade Name Freq PRN Reason Stop Dose Admin
Acetaminophen 650 mg 09/17/24 05:06 09/17/24 06:03
Acetaminophen 325 Mg Tablet PO 10/15/24 05:05 Not Given
Q4HWA BONNIE
Acetaminophen 650 mg 09/17/24 05:06
Acetaminophen 650 Mg Rectal Suppository RECTAL 10/15/24 05:05
Q4HPRN PRN
RAO, mild pain, or temp >100.4F
Acetaminophen 650 mg 09/17/24 05:06
Acetaminophen 325 Mg Tablet PO 10/15/24 05:05
Q4HPRN PRN
RAO, mild pain, or temp >100.4F
Aspirin 81 mg 09/17/24 08:00
Aspirin 81 Mg Chewable Tablet PO 10/15/24 07:59
DAILY BONNIE
Atorvastatin Calcium 20 mg 09/17/24 18:00
Atorvastatin (Lipitor) 20 Mg Tablet PO 10/15/24 17:59
QPM BONNIE
Docusate Sodium 100 mg 09/17/24 20:00
Docusate Sodium 100 Mg Capsule PO 10/15/24 19:59
BID BONNIE
Heparin Sodium 5,000 units 09/17/24 08:00
Heparin 5,000 Units/Ml 1 Ml Vial SC 10/15/24 07:59
Q8 BONNIE
Hydromorphone HCl 0.25 mg 09/17/24 05:06
Hydromorphone 0.25 Mg/0.5 Ml Syringe IV 10/01/24 05:05
Q1HPRN PRN
severe pain
Hydromorphone HCl 0.25 mg 09/17/24 08:29
Hydromorphone 0.25 Mg/0.5 Ml Syringe IV 09/18/24 08:30
PACU-Q5MPRN PRN
severe pain
Sodium Chloride 1,000 mls @ 80 mls/hr 09/17/24 05:06 09/17/24 05:54
Nss IV 1,000 mls
.[id number] BONNIE Administration
Parenteral Electrolytes 1,000 mls @ 100 mls/hr 09/17/24 08:30
Normosol-R/Plasmalyte-A IV 09/18/24 08:30
PER PROTOCOL BONNIE
Magnesium Hydroxide 30 ml 09/17/24 05:06
Milk Of Magnesia 30 Ml Cup PO 10/15/24 05:05
DAILYPRN PRN
constipation
Metoprolol Tartrate 25 mg 09/17/24 08:00
Metoprolol 25 Mg Regular Release Tablet PO 10/15/24 07:59
BID BONNIE
Metoprolol Tartrate 5 mg 09/17/24 05:06
Metoprolol 5 Mg/5 Ml Vial IV 10/15/24 05:05
Q6HPRN PRN
HR > 120 or SBP > 180
Mirtazapine 30 mg 09/17/24 20:00
Mirtazapine 30 Mg Tablet PO 10/15/24 19:59
DAILY@2000 BONNIE
Morphine Sulfate 1 mg 09/17/24 08:29
Morphine 2 Mg/Ml Syringe IV 09/18/24 08:30
PACU-Q5MPRN PRN
moderate pain
Ondansetron HCl 4 mg 09/17/24 08:29
Ondansetron 4 Mg/2 Ml Vial IV 09/18/24 08:30
PACU-ONCEPRN PRN
nausea/vomiting
Oxycodone HCl 5 mg 09/17/24 05:06
Oxycodone 5 Mg Regular Release Tablet PO 10/01/24 05:05
Q4HPRN PRN
mild pain
Prochlorperazine Edisylate 5 mg 09/17/24 08:29
Prochlorperazine 10 Mg/2 Ml Vial IV 09/18/24 08:30
PACU-ONCEPRN PRN
nausea/vomiting
Sennosides 17.2 mg 09/17/24 20:00
Sennosides (Senokot) 8.6 Mg Tablet PO 10/15/24 19:59
BID BONNIE
Sodium Chloride 0 flush 09/17/24 06:00
Sodium Chloride 0.9% (Flush) Syringe IV 10/15/24 05:59
PER PROTOCOL BONNIE
Tamsulosin HCl 0.4 mg 09/17/24 05:06
Tamsulosin 0.4 Mg Capsule PO 10/15/24 05:05
DAILYPRN PRN
bladder scan volume > 400 mL
Triamcinolone Acetonide 1 applic 09/17/24 08:00
Tramcinolone Acetonide 0.1% (Cream) 15 Gram Tube TOPICAL 10/15/24 07:59
BID BONNIE
Home Medications
-
Home Medications
atorvastatin 10 mg tablet 10 mg PO DAILY@1999 High Cholesterol 08/16/23
metoprolol tartrate 25 mg tablet 12.5 mg PO BID Blood Pressure 08/16/23
mirtazapine 30 mg tablet 30 mg PO DAILY@1999 Mental Health/Anxiety 08/16/23
triamcinolone acetonide 0.1 % topical cream 1 applic topical BID apply to right ankle/left elbow/lower back 08/16/23
bupropion HCl 150 mg 24 hr tablet, extended release 150 mg PO DAILY 09/17/24
[2024-09-17 08:27] LABS: Glycohemoglobin (HgbA1c) 5.5 % (4.0-5.6)
--- NOTE | 2024-09-17 08:31 | CON.ORTHO ---
Consultation
-
Date/Time Consultation Requested: October 09/0506
Date/Time Consultation Performed: October 09/0815
Requesting Provider: Regan
Performing Provider: Dia li Ritting
Reason for Consultation: Left hip fracture
Consultation - Orthopedics
History
History of Present Illness
This is an 83-year-old female with past medical history significant for hypertension, hyperlipidemia, depression/anxiety who lives with spouse independently and presents to the emergency department following a fall. Patient reported that she was in
the bathroom when she suddenly felt dizzy and spun around falling to the floor. He had significant pain in her left lower extremity and was unable to get up on her own. At the time of the fall the patient had a stroke alert called due to slurred
speech and facial droop. She did not lose consciousness. Daughter reported that about a week ago the patient had a cough. She attributed this to upper respiratory viral infection. Patient herself reports normal oral intake. She denies feeling
dizzy or lightheaded. She denied having any palpitations. She denied having any chest pain. She is not currently on any blood thinners. On arrival in the emergency department she was afebrile, blood pressure was 175/106 with a pulse of 120.
Initial ECG showed a rate of 110 with undetermined rhythm. The second ECG shows a rate of around 100 with atrial fibrillation and no acute ST or T wave changes. CBC was unremarkable. CT of the head was nonacute. She had a CT angio which showed
occlusion of the middle division M2 branch of the right MCA along the mid to posterior insular cortex. Bilateral vertebral arteries are widely patent and bilateral common carotid and internal carotid arteries are widely patent without significant
stenosis. She has heterogeneous thyroid gland with multiple hypodense and peripherally calcified nodules. CT pelvis without contrast showing acute displaced intertrochanteric left femoral neck fracture with surrounding intramuscular hemorrhage and
edema. No previous issues or injuries regarding the left hip. We have been requested in consult with regards to her left hip and the consideration of surgical correction
Past Medical History
Past Medical History: Reports HTN, Hypercholesterolemia and Psychiatric (anxiety)
Past Surgical History: Reports None
Social History
Tobacco: Non-smoker
Alcohol: None
Drug: None
Personal:
Living: With Family
Employment: Retired
Family History
Family History: Not pertinent
ROS
12 negative except those mentioned in the HPI
Allergies / Home Medications
Allergy/AdvReac Type Severity Reaction Status Date / Time
Sulfa (Sulfonamide Allergy Rash Verified 09/17/24 01:53
Antibiotics)
�Medication �Instructions �Recorded
atorvastatin 10 mg tablet 10 mg PO DAILY@1999 High 08/16/23
Cholesterol
metoprolol tartrate 25 mg tablet 12.5 mg PO BID Blood Pressure 08/16/23
mirtazapine 30 mg tablet 30 mg PO DAILY@1999 Mental 08/16/23
Health/Anxiety
triamcinolone acetonide 0.1 % 1 applic topical BID apply to 08/16/23
topical cream right ankle/left elbow/lower back
bupropion HCl 150 mg 24 hr tablet, 150 mg PO DAILY 09/17/24
extended release
Vital Signs / Lab Results
Temp Pulse Resp BP Pulse Ox
97.8 F 96 12 125/81 96
09/17/24 06:56 09/17/24 06:56 09/17/24 06:56 09/17/24 06:56 09/17/24 06:56
09/17/24 05:15
09/17/24 01:30
Assessment / Plan
PE: Bedrest 2017. Answers questions appropriately, but with slurred speech. Afeb. Left hip skin intact. LL short ER. Generalized pain left hip. deferred ROM due to known fracture. + logroll LLE. Abrasion over lateral knee. Calf soft, nontender. DNVI
LLE
Diagnostics: Xrays and correlating CT notes Left IT fracture
Impression: ALIN
Plan: Long discussion with the patient and family bedside, including daughter/POA, Monserrat. MRI brain requested. Obviously she has some additional pressing medical issues, including Afib and brain thrombus. Appreciate Dr. Ponce and consultants. We
are ready and willing to surgically correct her LEFT hip today (possibly 12N or closer to 1700), if she is felt to be optimized surgically. Currently on Heparin, which may be continued per the primary team. Optimally heparin hold for 4-6 hours
pre-op to allow for regional anesthesia, but surgery may proceed under general if needed. Tentative plan for LEFT hip ORIF will be later today, if possible, under the direction of Dr. El. The sooner we can fix her hip, the sooner additional
anticoagulation may be started, if necessary. Surgical and blood consent has been signed by her daughter Monserrat. Post-op course briefly discussed, which CM assistance will be greatly appreciated. Patient is and will remain NPO. ABX motion picture camera lens technician to the OR.
Surgical site marked as the LEFT hip. T&S ordered. continue bedrest for now and ice to the hip as needed. Discussed with Dr. Ponce. Will follow.
--- NOTE | 2024-09-17 08:41 | CON.CAR ---
Addendum entered and electronically signed by Handy Lazar MD 09/17/24 11:06:
I saw and examined the patient.
The ARCHITECT or PA's note was reviewed and I agree with the note.
Comment: General: Well developed, well nourished in NAD.
Neck: Supple, no JVD, HJR, carotids +2 B/L, no bruits bilaterally.
Heart: Non displaced PMI, irregular, no murmurs, No S3, S4, no rubs.
Lungs: Clear to auscultation bilaterally, no wheeze, rhonchi, rubs bilaterally,
normal expiratory phase.
Abdomen: Normal bowel sounds, soft, non-tender, non-distended.
Extremities: No clubbing, cyanosis or edema bilaterally.
Neuro: Aphasia with left-sided neglect
Luba has a history of hypertension, hyperlipidemia, anxiety, renal sufficiency. She presented to us time after a fall and slurred speech. She is found to have an acute right MCA stroke. She also has fractured right hip and needs to undergo
surgery. She incidentally was found to be in rapid atrial fibrillation as well.
She is okay for left hip replacement surgery without further testing. She is at risk of further worsening stroke without being anticoagulated but neurology wishes anticoagulation to be held in any event. Will rate control her A-fib and eventually
start Eliquis when okay with neurology and orthopedics. Discussed with family in detail at bedside. Check echocardiogram. May be done after surgery if needed.
Original Note:
Consultation
Consultation Request
Date/Time Consultation Requested: 09/17/2024
Date/Time Consultation Performed: 09/17/2024
Requesting Provider: Dr. Ponce
Performing Provider: Christen Marte PA-C for Dr. Lazar
Reason for Consultation: New Afib, CVA, Hip Fx
Medical History
-
History of Present Illness:
HPI: Luba is an 83 year old female with PMH of hypertension, hyperlipidemia, anxiety, and CDK who presented to [facility] for evaluation after fall and slurred speech. About 1 week ago she had URI symptoms and also had some nausea/vomiting. Family
reports she was not quite herself, but felt this was likely related to her illness. Yesterday she then noted feeling some dizziness/lightheadedness and while in the bathroom fell and was unable to get up on her own. She was noted to have facial
droop and slurred speech and EMS was called. She was brought to as a pre-hospital stroke alert. She was not felt to be a candidate for IAT/tPA. Initial ECG reviewed and showed rapid atrial flutter with HR 110 bpm which was a new diagnosis. Family
notes she never complained of heart racing or palpitations. Also denies any chest pain or SOB. CT of the head was nonacute, but CTA showed occlusion of the middle division M2 branch of the R MCA along the mid to posterior insular cortex. Given L hip
pain, underwent CT of pelvis which showed acute displaced intertrochanteric L femoral neck fracture with surrounding intramuscular hemorrhage and edema. She was admitted and cardiology, neurology, and orthopedics were consulted. She remains in
atrial flutter on telemetry. HR stable overall in the 90s to low 100s. History mostly obtained by family at bedside given aphasia. She has no known cardiac history.
PMH:
HTN
HLD
Anxiety/Depression
CKD 3a
Past Medical History
Past Medical History: Other (In HPI)
Past Surgical History: None
Social History
Tobacco: Non-Smoker
Alcohol: None
Drug: None
Personal:
Living: With Family
Employment: Retired
Family History
Family History: Reviewed & Not Pertinent
Allergies / Home Medications
Allergy/AdvReac Type Severity Reaction Status Date / Time
Sulfa (Sulfonamide Allergy Rash Verified 09/17/24 01:53
Antibiotics)
�Medication �Instructions �Recorded �Confirmed �Type
atorvastatin 10 mg tablet 10 mg PO DAILY@2000 High 08/16/23 09/17/24 History
Cholesterol
metoprolol tartrate 25 mg tablet 12.5 mg PO BID Blood Pressure 08/16/23 09/17/24 History
mirtazapine 30 mg tablet 30 mg PO DAILY@2000 Mental 08/16/23 09/17/24 History
Health/Anxiety
triamcinolone acetonide 0.1 % 1 applic topical BID apply to 08/16/23 09/17/24 History
topical cream right ankle/left elbow/lower back
bupropion HCl 150 mg 24 hr tablet, 150 mg PO DAILY 09/17/24 09/17/24 History
extended release
Review of Systems
-
History Source: Patient and Family
All other systems: Negative unless noted
Physical Exam
Vital Signs
Temp Pulse Resp BP Pulse Ox
97.8 F 96 12 125/81 96
09/17/24 06:56 09/17/24 06:56 09/17/24 06:56 09/17/24 06:56 09/17/24 06:56
Lab Results
09/17/24 05:15
09/17/24 01:30
Physical Exam
General: Well Developed, Well Nourished and No Apparent Distress
HEENT: Normocephalic, Anicteric and Moist Mucous Membranes
Respiratory: Clear and Non Labored Respirations
Cardiac: S1/S2 and Irregular Rhythm
Musculoskeletal: No Clubbing, No Cyanosis and No Edema
Skin: Warm and Dry
Neuro: Awake and Alert
Psych: Calm
Impression / Plan
-
PCP: Dr. Naqvi
Associate Product Integrity Engineer: None prior to admission
Impression:
Presented with fall, dizziness, slurred speech
Atrial fibrillation/flutter, new diagnosis
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
Acute displaced intertrochanteric L femoral neck fracture
HTN
HLD
Anxiety/Depression
CKD 3a
Echo 08/22/2023: EF 60%, mild MR
Echo 09/17/2024: Study pending
Plan:
-Presented with dizziness, fall, and slurred speech. Admitted with acute CVA, L femoral neck fracture, and new afib.
-Remains in rate controlled atrial flutter this AM on telemetry. Continue lopressor 25mg BID
-Patient previously was independent and family reports no prior bleeding episodes and no significant fall history.
-Given new afib, discussed anticoagulation and would recommend Eliquis once OK per orthopedics and neurology.
-Will ask to assess the cost of Eliquis 2.5mg BID (age 83, weight 59 kg). [id number] score 6 (age, female, HTN, CVA).
-Prior echo 08/2023 noted preserved EF with mild MR. Repeat echo ordered.
-K 4.3, TSH 1.99
-Brain MRI ordered. Await results and neuro recommendations. Not tPA or IAT candidate.
-LDL 89. Lipitor dose increased to 20mg daily
-Hgb A1c 5.5%.
-Continue aspirin 81mg daily.
-Per ortho, plan is for L hip ORIF later today.
HPI: Luba is an 83 year old female with PMH of hypertension, hyperlipidemia, anxiety, and CDK who presented to [facility] for evaluation after fall and slurred speech. About 1 week ago she had URI symptoms and also had some nausea/vomiting. Family
reports she was not quite herself, but felt this was likely related to her illness. Yesterday she then noted feeling some dizziness/lightheadedness and while in the bathroom fell and was unable to get up on her own. She was noted to have facial
droop and slurred speech and EMS was called. She was brought to as a pre-hospital stroke alert. She was not felt to be a candidate for IAT/tPA. Initial ECG reviewed and showed rapid atrial flutter with HR 110 bpm which was a new diagnosis. Family
notes she never complained of heart racing or palpitations. Also denies any chest pain or SOB. CT of the head was nonacute, but CTA showed occlusion of the middle division M2 branch of the R MCA along the mid to posterior insular cortex. Given L hip
pain, underwent CT of pelvis which showed acute displaced intertrochanteric L femoral neck fracture with surrounding intramuscular hemorrhage and edema. She was admitted and cardiology, neurology, and orthopedics were consulted. She remains in
atrial flutter on telemetry. HR stable overall in the 90s to low 100s. History mostly obtained by family at bedside given aphasia. She has no known cardiac history.
Data Reviewed
-
EKG: Tracing Personally Visualized and interpreted
CT Scan: Report Reviewed by me
Labs: Labs Reviewed by me
Old Records: Reviewed
[2024-09-17] MEDS: TRIAMCINOLONE ACETONIDE 0.1% CREAM 1 APPLIC TOPICAL ×2 (09:09→22:43)
[2024-09-17] MEDS: LOW STRENGTH ASPIRIN PO ×2 (09:12→09:47)
[2024-09-17] MEDS: LOPRESSOR PO ×2 (09:12→09:47)
[2024-09-17] MEDS: HEPARIN 5000 UNITS SC ×2 (09:14→23:22)
[2024-09-17] MEDS: LOPRESSOR 5 MG IV (09:36)
[2024-09-17] MEDS: DILAUDID 0.25 MG IV (09:39)
--- NOTE | 2024-09-17 11:24 | CM ---
Addendum entered by Patricia Carrera 09/17/24 15:29:
med pricing correction - medication - eliquis 2.5mg BID #60
Addendum entered by Patricia Carrera 09/17/24 15:11:
CM consult for medication pricing - Farxiga 2.5mg BID, #60
Called [facility] [phone] - spoke with contracts representative. Reports pt does not have insurance on file. Could provide discount card - cost would be approx. $500 for 30 day supply. Spoke with pts family - will inquire with pts and sister who
is POA regarding Pharm Rx coverage.
CM can provide coupon at d/c
Pt for OR today for hip fx repair
Original Note:
Chart reviewed. Met with pts son and daughter at bedside. Pt off unit
IA completed. Pt lives with her , daughter and son-in-law at listed address; FF set-up, 1 step to enter
Independent with ADL's, cooks/meal prep, ambulating without device, occasionally drives prior to admission
DME - has oxygen, rolling walker in home for spouse
SNF - [facility] in past
HH - [facility] in past
PCP - [facility] Naqvi
Pharm - [facility] [place]
Currently at MRI
PT/OT recs pending
Plan - TBD. CM will follow for discharge needs
--- NOTE | 2024-09-17 13:16 | W.PN.HOSP.TC ---
Today's Communication/Plan
-
N.p.o. for surgery
Speech therapy consult
Assessment / Plan
Assessment / Plan
Gen-AAOx3, NAD, slurred speech
HEENT-NC, AT, anicteric, clear oral mm
Neck-supple
CV-reg, no M, +S1/S2
Lungs-clear B/L
Abd-soft, NT, ND
Ext-no edema
Musculoskeletal-no cyanosis, clubbing
Skin-warm and dry
Neuro-left facial droop
Psych-calm, cooperative
Acute right frontal parietal lobe infarct -brain MRI noted. Stroke is presumed to be embolic given atrial fibrillation.
CTA shows complete occlusion of the middle branch of the distal M2 of right MCA. Less than 30% stenosis of bilateral carotid bifurcations.
Await speech therapy, PT/OT.
Continue aspirin, atorvastatin. Neurology requested echocardiogram.
Acute traumatic displaced and impacted left femoral intertrochanteric fracture -due to fall and underlying osteoporosis. N.p.o. awaiting orthopedic repair later today. Discussed with orthopedics, cardiology, neurology. Remains at elevated risk in
the setting of acute stroke but patient and family understands and wants to proceed.
Essential hypertension/hypertensive emergency -initial blood pressure 175/106. Blood pressure now controlled, emergency resolved.
Rapid atrial fibrillation -new diagnosis. Anticoagulation after orthopedic surgery when okay with neurology service. Chads-VASc score of 6.
NATHALIE -creatinine noted to be 1.6 on admission, will trend. BUN elevated, suspect prerenal azotemia and volume depletion. Continue IV fluids.
Incidental thyroid nodules -noted on CTA, involving left hemithyroid. Outpatient thyroid ultrasound.
Hyperlipidemia
Anxiety/depression
Full code
Family updated at the bedside.
Anticipated Discharge: > 48 hours
Subjective/Interval History
-
Date of Service: September 17, 2024
Patient seen and examined. Complaining of stiffness of left lower extremity.
Objective Data
-
Labs:
Laboratory Results
09/17/24 09/17/24
01:30 05:15
WBC 5.8 10.2
Hgb 12.7 12.0
Hct 38.5 35.8 L
Plt Count 233 235
PT 13.8
INR 1.03
APTT 25.4
Sodium 138
Potassium 4.3
Chloride 103
Carbon Dioxide 27
BUN 23 H
Creatinine 1.6 H
Glucose 159 H
Calcium 9.8
Total Bilirubin 0.9
AST 27
ALT 17
Alkaline Phosphatase 65
Vital Signs:
Vital Signs
Temp Pulse Resp BP Pulse Ox
97.7 F 79 12 134/93 94
09/17/24 11:03 09/17/24 11:03 09/17/24 11:03 09/17/24 11:03 09/17/24 11:03
I&O
09/16/24 09/17/24 09/18/24
06:59 06:59 06:59
Output Total 550 / 550
Balance -550 / -550
Review of Systems
-
History Source: Patient
All other systems: Reviewed and negative
[2024-09-17] MEDS: DEMEROL 12.5 MG IV (17:56)
[2024-09-17] MEDS: HEPARIN SC (17:56)
[2024-09-17] MEDS: LIPITOR PO (18:36)
--- NOTE | 2024-09-17 18:53 | PTCARENOTE ---
report received from pacu. received pt in bed. Aquacel dressing to left hip. scant drainage noted and marked. left upper extremity movement and left facial droop more improved since returning from or. report given to nightshift.
[2024-09-17] MEDS: LOPRESSOR 25 MG PO (19:14)
[2024-09-17] MEDS: COLACE 100 MG PO (19:14)
[2024-09-17] MEDS: SENOKOT 17.2 MG PO (19:15)
[2024-09-17] MEDS: REMERON 30 MG PO (19:15)
[2024-09-17] MEDS: TYLENOL 650 MG PO ×2 (19:15→23:22)
[2024-09-17] MEDS: ANCEF 5 IV (23:26)
[2024-09-18 03:03] VITALS: BP 115/79
[2024-09-18] MEDS: NSS 1000 IV ×2 (03:30→19:50)
[2024-09-18] MEDS: TYLENOL 650 MG PO ×6 (04:57→23:30)
[2024-09-18 07:26] VITALS: BP 133/81
[2024-09-18 08:00] VITALS: BMI 23.4
--- NOTE | 2024-09-18 08:18 | W.PN.ORTHO ---
Today's Communication / Plan
-
83-year-old female postoperative day 1 left hip supplementary nail fixation with Dr. El
-Dressing is dry.
-Pain controlled on current regimen
-Diet per primary
-DVT prophylaxis per primary in the setting of stroke
-Patient may be weightbearing as tolerated assist devices with PT/OT consultation; increased fall risk in setting of stroke
-Orthopedic surgical continue to follow
Assessment
.
Distal Motor Intact: Yes
Dressing:
Clean, dry and intact.
Plan
.
Surgery / Date: 09/17/[address] El
Activity:
Out of bed.
PT/OT
Subjective
.
.:
Patient resting comfortably.
Vital Signs and Labs
.
Vital Signs and Labs:
Lab Results
09/17/24 05:15
Temp Pulse Resp BP Pulse Ox
97.9 F 84 14 133/81 100
09/18/24 07:26 09/18/24 07:26 09/18/24 07:26 09/18/24 07:26 09/18/24 07:26
PT 13.8 Sec (11.4-14.6) 09/17/24 01:30
INR 1.03 09/17/24 01:30
[2024-09-18] MEDS: LOW STRENGTH ASPIRIN 81 MG PO (08:45)
[2024-09-18] MEDS: HEPARIN 5000 UNITS SC ×3 (08:45→23:33)
[2024-09-18] MEDS: LOPRESSOR 25 MG PO ×2 (08:45→19:50)
[2024-09-18] MEDS: COLACE 100 MG PO ×2 (08:46→19:50)
[2024-09-18] MEDS: SENOKOT 17.2 MG PO ×2 (08:46→19:50)
[2024-09-18] MEDS: ANCEF 5 IV (08:46)
[2024-09-18] MEDS: TRIAMCINOLONE ACETONIDE 0.1% CREAM 1 APPLIC TOPICAL ×2 (08:48→19:50)
[2024-09-18 08:54] LABS: Blood Urea Nitrogen 29 mg/dl (7-17); Calcium 8.8 mg/dl (8.4-10.2); Carbon Dioxide 19 mmol/L (22-30); Chloride 107 mmol/L (98-107); Estimated Creatinine Clearance 22 ml/min; Glucose 108 mg/dl (70-99); Potassium 4.8 mmol/L (3.5-5.1); Sodium 139 mmol/L (135-145)
[2024-09-18] MEDS: ROXICODONE 5 MG PO ×3 (08:54→18:46)
--- NOTE | 2024-09-18 09:33 | W.PN.NEURO.1 ---
Today's Communication / Plan
-
.
Subjective/Objective
Subjective Data
Date of Service: September 18, 2024
Neurology Follow Up Note.
24h events: Transiently hypertensive up to 193/94 yesterday in the evening, afebrile. The patient continues to be anosognosic of her left hemiparesis.
Ms. Flanagan underwent left hip nail fixation yesterday. She reports moderate left hip pain and denies headaches. No reported or documented seizures.
Brain MRI showed an acute right MCA distribution infarct.
TTE�no evidence of shunting or intra cardiac thrombus.
EKG: A-fib
Labs: LDL�89, hemoglobin A1c�5.5
CT head wo contrast�no acute abnormalities.
CTA head/neck�distal M2 occlusion.
CT pelvis(09/17/2024) comminuted, displaced and impacted intertrochanteric left femoral neck fracture.
MAR: reviewed
PMH:HTN, DLP, CKD, MDD, CHASITY, osteoporosis, h/o left radial fracture, insomnia
PSH: bilateral cataract surgery
SH: , independent in ADLs, non-smoker, mother of 6
FH: Not contributory to current presentation
All: Sulfamethoxazole, Trimethoprim
ROS: Positive for left-sided weakness, dysarthria, encephalopathy
General: Well developed. In no acute distress.
Cardio: irregular rate and rhythm. Extremities are without cyanosis or edema.
Neuro:
Mental Status: Awake., oriented to name, location, person. Impaired attention. Follows simple requests. Left hemineglect. Nonfluent.
Cranial Nerves: Pupils are equally round, surgical. EOMs full. Lower left visual neglect. No ptosis. Severe left facial weakness, preserved hearing AU. Moderate to severe dysarthria
Motor: Able to move her distal left leg within bed plane. Left arm drift. (left elbow�antigravity) right arm and leg�full strength.
Reflexes: Negative grasp. Limited exam due to positioning, fracture
Sensory: Limited due to poor attention
Coordination: No tremors myoclonic movements. No dysmetria on the right
Gait: Unable
Assessment and Plan:
I. Acute R MCA territory stroke, R M2 occlusion. Likely etiology�embolic
II. New onset of A-Fib. [id number] Score-6.
III. Vascular encephalopathy
IV. Displaced and impacted intertrochanteric left femoral neck fracture, s/p left hip nail fixation.
-Continue Telemetry monitoring
-Continue ASA 81 mg QD. Systemic anticoagulation to be started in 1-2 weeks if clinically stable and no contraindications.
-Lipitor 40 mg QHS.
-PT.
-DVT prophylaxis.
-Outpatient neurology follow-up
-Case was discussed with patient's daughter.
-Please recall neurology service was questions or concerns.
I personally reviewed all radiology and labs along with past medical records pertinent to current medical problems. Total time spent in patient care is 35 minutes.
Thank you for allowing us to participate in the care of this patient. Please do not hesitate to contact us with any questions or concerns.
Objective Data
Vital Signs
Temp Pulse Resp BP Pulse Ox
36.6 C 84 14 133/81 100
09/18/24 07:26 09/18/24 07:26 09/18/24 07:26 09/18/24 07:26 09/18/24 07:26
Lab Results
09/17/24 05:15
09/18/24 06:52
PT 13.8 Sec (11.4-14.6) 09/17/24 01:30
INR 1.03 09/17/24 01:30
APTT 25.4 Sec (23.4-35.0) 09/17/24 01:30
Sodium 139 mmol/L (135-145) 09/18/24 06:52
Potassium 4.8 mmol/L (3.5-5.1) 09/18/24 06:52
BUN 29 mg/dl (7-17) H 09/18/24 06:52
Glucose 108 mg/dl (70-99) H 09/18/24 06:52
Calcium 8.8 mg/dl (8.4-10.2) 09/18/24 06:52
LDL Cholesterol, Calc 89 mg/dl 09/17/24 05:15
Patient Allergies
Sulfa (Sulfonamide Antibiotics) Allergy (Verified 09/17/24 01:53)
Rash
Vital Signs and Labs
-
Vital Signs and Labs:
Vital Signs
Temp Pulse Resp BP Pulse Ox
36.6 C 84 14 133/81 100
09/18/24 07:26 09/18/24 07:26 09/18/24 07:26 09/18/24 07:26 09/18/24 07:26
Lab Results
09/17/24 05:15
09/18/24 06:52
PT 13.8 Sec (11.4-14.6) 09/17/24 01:30
INR 1.03 09/17/24 01:30
APTT 25.4 Sec (23.4-35.0) 09/17/24 01:30
Sodium 139 mmol/L (135-145) 09/18/24 06:52
Potassium 4.8 mmol/L (3.5-5.1) 09/18/24 06:52
BUN 29 mg/dl (7-17) H 09/18/24 06:52
Glucose 108 mg/dl (70-99) H 09/18/24 06:52
Calcium 8.8 mg/dl (8.4-10.2) 09/18/24 06:52
LDL Cholesterol, Calc 89 mg/dl 09/17/24 05:15
Medications
-
Medications:
Generic Name Dose Route Start Last Admin
Trade Name Freq PRN Reason Stop Dose Admin
Acetaminophen 650 mg 09/17/24 05:06 09/18/24 08:47
Acetaminophen 325 Mg Tablet PO 10/15/24 05:05 650 mg
Q4HWA BONNIE Administration
Acetaminophen 650 mg 09/17/24 05:06
Acetaminophen 650 Mg Rectal Suppository RECTAL 10/15/24 05:05
Q4HPRN PRN
RAO, mild pain, or temp >100.4F
Acetaminophen 650 mg 09/17/24 05:06
Acetaminophen 325 Mg Tablet PO 10/15/24 05:05
Q4HPRN PRN
RAO, mild pain, or temp >100.4F
Al Hydrox/Mg Hydrox/Simethicone 30 ml 09/17/24 16:35
Mag/Al/Simethicone Suspension 30 Ml Cup PO 10/15/24 16:34
Q4HPRN PRN
indigestion
Aspirin 81 mg 09/17/24 08:00 09/18/24 08:45
Aspirin 81 Mg Chewable Tablet PO 10/15/24 07:59 81 mg
DAILY BONNIE Administration
Atorvastatin Calcium 20 mg 09/17/24 18:00 09/17/24 18:36
Atorvastatin (Lipitor) 20 Mg Tablet PO 10/15/24 17:59 Not Given
QPM BONNIE
Docusate Sodium 100 mg 09/17/24 20:00 09/18/24 08:46
Docusate Sodium 100 Mg Capsule PO 10/15/24 19:59 100 mg
BID BONNIE Administration
Heparin Sodium 5,000 units 09/17/24 08:00 09/18/24 08:45
Heparin 5,000 Units/Ml 1 Ml Vial SC 10/15/24 07:59 5,000 units
Q8 BONNIE Administration
Hydromorphone HCl 0.25 mg 09/17/24 05:06 09/17/24 09:39
Hydromorphone 0.25 Mg/0.5 Ml Syringe IV 10/01/24 05:05 0.25 mg
Q1HPRN PRN Administration
severe pain
Sodium Chloride 1,000 mls @ 80 mls/hr 09/17/24 05:06 09/17/24 18:37
Nss IV 1,000 mls
.[id number] BONNIE Administration
Sodium Chloride 1,000 mls @ 75 mls/hr 09/17/24 16:45 09/18/24 03:30
Nss IV 1,000 mls
.[id number] BONNIE Administration
Magnesium Hydroxide 30 ml 09/17/24 05:06
Milk Of Magnesia 30 Ml Cup PO 10/15/24 05:05
DAILYPRN PRN
constipation
Meperidine HCl 12.5 mg 09/17/24 17:52 09/17/24 17:56
Meperidine 25 Mg/Ml Injection IV 09/18/24 17:53 12.5 mg
PACU-Q5MPRN PRN Administration
shivers
Metoprolol Tartrate 25 mg 09/17/24 08:00 09/18/24 08:45
Metoprolol 25 Mg Regular Release Tablet PO 10/15/24 07:59 25 mg
BID BONNIE Administration
Metoprolol Tartrate 5 mg 09/17/24 05:06 09/17/24 09:36
Metoprolol 5 Mg/5 Ml Vial IV 10/15/24 05:05 5 mg
Q6HPRN PRN Administration
HR > 120 or SBP > 180
Mirtazapine 30 mg 09/17/24 20:00 09/17/24 19:15
Mirtazapine 30 Mg Tablet PO 10/15/24 19:59 30 mg
DAILY@2000 BONNIE Administration
Ondansetron HCl 4 mg 09/17/24 16:35
Ondansetron 4 Mg/2 Ml Vial IV 10/15/24 16:34
Q6HPRN PRN
nausea/vomiting
Oxycodone HCl 5 mg 09/17/24 05:06
Oxycodone 5 Mg Regular Release Tablet PO 10/01/24 05:05
Q4HPRN PRN
mild pain
Sennosides 17.2 mg 09/17/24 20:00 09/18/24 08:46
Sennosides (Senokot) 8.6 Mg Tablet PO 10/15/24 19:59 17.2 mg
BID BONNIE Administration
Sodium Chloride 0 flush 09/17/24 06:00
Sodium Chloride 0.9% (Flush) Syringe IV 10/15/24 05:59
PER PROTOCOL BONNIE
Tamsulosin HCl 0.4 mg 09/17/24 05:06
Tamsulosin 0.4 Mg Capsule PO 10/15/24 05:05
DAILYPRN PRN
bladder scan volume > 400 mL
Triamcinolone Acetonide 1 applic 09/17/24 08:00 09/18/24 08:48
Tramcinolone Acetonide 0.1% (Cream) 15 Gram Tube TOPICAL 10/15/24 07:59 1 applic
BID BONNIE Administration
Home Medications
-
Home Medications
atorvastatin 10 mg tablet 10 mg PO DAILY@1999 High Cholesterol 08/16/23
metoprolol tartrate 25 mg tablet 12.5 mg PO BID Blood Pressure 08/16/23
mirtazapine 30 mg tablet 30 mg PO DAILY@1999 Mental Health/Anxiety 08/16/23
triamcinolone acetonide 0.1 % topical cream 1 applic topical BID apply to right ankle/left elbow/lower back 08/16/23
bupropion HCl 150 mg 24 hr tablet, extended release 150 mg PO DAILY 09/17/24
[2024-09-18 11:30] VITALS: BP 132/67
--- NOTE | 2024-09-18 11:47 | PTOTSP ---
ST Acute Care Evaluation
In terms of swallowing, pt currently presents with clinical signs of of moderately-severe oral dysphagia characterized by reduced oral cavity opening, prolonged mastication and bolus formation, prolonged bolus manipulation and propulsion
posteriorly, and bolus holding, as well as inadequate oral clearance from oral cavity and anterior spillage from L labial seal with reduced sensation/awareness. Pt also exhibits clinical signs of suspected mild pharyngeal dysphagia as exhibited by
occasional coughing after ingestion of thin liquids indicative of possible airway invasion.
In terms of communication, presents with clinical signs of a moderately-severe dysarthria characterized by low vocal volume and pitch, strained/strangled vocal quality, and imprecise production of consonant sounds that make it difficult for an
unfamiliar listener to decipher what she is saying even at the word level even when given context. Pt also presents with a mild to moderate cognitive linguistic impairment (MOCA=19/29) characterized by deficits in visuospatial skills, executive
functioning, language, and abstraction. Pt would benefit from intensive speech and cognitive linguistic therapy services to address these newly acquired impairments.
Recommendations:
- DOWNGRADE pt's diet to PUREED SOLIDS and continue with thin liquids with SMALL SINGLE SIPS with stationary straw; meds whole in puree (crush as needed).
- Aspiration precautions: HOB upright for all PO intake; close supervision during all PO intake;
- TOE PULLER to f/u re: diet tolerance, use of compensatory strategies, trial diet upgrades, determine if pt would benefit from an instrumental swallow study, as well as to provide speech and cognitive linguistic tx.
- Pt would benefit from continued TOE PULLER services upon d/c at the acute rehab level of care.
--- NOTE | 2024-09-18 12:20 | W.PN.CARDCBS ---
Addendum entered and electronically signed by Tremaine Fonseca DO 09/18/24 14:44:
I saw and examined the patient.
The Sack Cleaning Hand's note was reviewed and I agree with the note.
Comment:
Plan:
Cont Lopressor for PAFib, remains in sinus
Cont ASA and transition to Eliquis once ok with ortho and neuro
Echo with preserved left ventricular systolic function
Outpatient follow-up to be arranged.
Patient will go to SNF upon DC.
Discussed with her 2 sons at bedside.
Original Note:
Today's Communication / Plan
-
continue lopressor
in SR on tele. check EKG
transition asa to eliquis when ok per ortho/neuro
will arrange OP cardiac follow up
for SNF upon DC
Impression / Plan
-
PCP: Dr. Naqvi
Obgyn Specialist: None prior to admission
Impression:
Presented with fall, dizziness, slurred speech
Atrial fibrillation/flutter, new diagnosis
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
Acute displaced intertrochanteric L femoral neck fracture s/p L nail fixation 09/17/24
HTN
HLD
Anxiety/Depression
CKD 3a
Echo 08/22/2023: EF 60%, mild MR
Echo 09/17/2024: EF 61%, mild cLVH, posterior MAC, mild MR, aortic sclerosis, trace AR, mild dilated RA, mild to mod dilated aortic root
Plan:
-Presented with dizziness, fall, and slurred speech. Admitted with acute R CVA, L femoral neck fracture, and new afib.
-s/p L hip nail fixation by ortho 09/17/24
-she appears to be back in SR on review of tele at present. check EKG. continue lopressor 25mg BID, BPs stable
-[id number] score of 6 for age, female, HTN, CVA. would plan to start eliquis 2.5mg BID (age>80, Cr >1.5 and weight 60kg) when ok per neuro and ortho. would stop asa when eliquis started
-echo with preserved EF, results reviewed with patient and family at bedside
-LDL 89. Lipitor dose increased to 20mg daily
-TSH WNL
-continue PT/OT. will plan for SNF upon DC
-will arrange OP cardiac follow up
-d/w family at bedside
HPI: Luba is an 83 year old female with PMH of hypertension, hyperlipidemia, anxiety, and CDK who [facility] and slurred speech. About 1 week ago she had URI symptoms and also had some nausea/vomiting. Family
reports she was not quite herself, but felt this was likely related to her illness. Yesterday she then noted feeling some dizziness/lightheadedness and while in the bathroom fell and was unable to get up on her own. She was noted to have facial
droop and slurred speech and EMS was called. She was brought to as a pre-hospital stroke alert. She was not felt to be a candidate for IAT/tPA. Initial ECG reviewed and showed rapid atrial flutter with HR 110 bpm which was a new diagnosis. Family
notes she never complained of heart racing or palpitations. Also denies any chest pain or SOB. CT of the head was nonacute, but CTA showed occlusion of the middle division M2 branch of the R MCA along the mid to posterior insular cortex. Given L hip
pain, underwent CT of pelvis which showed acute displaced intertrochanteric L femoral neck fracture with surrounding intramuscular hemorrhage and edema. She was admitted and cardiology, neurology, and orthopedics were consulted. She remains in
atrial flutter on telemetry. HR stable overall in the 90s to low 100s. History mostly obtained by family at bedside given aphasia. She has no known cardiac history.
Progress Note - Obgyn Specialist
Subjective
Date of Service: September 18, 2024
Denies CP, SOB. reports L hip pain tolerable
Objective
Labs:
09/17/24 05:15
09/18/24 06:52
Labs
Hgb 12.0 g/dL (12.0-16.0) 09/17/24 05:15
Hct 35.8 % (37.0-47.0) L 09/17/24 05:15
Plt Count 235 10^3/uL (130-400) 09/17/24 05:15
PT 13.8 Sec (11.4-14.6) 09/17/24 01:30
INR 1.03 09/17/24 01:30
APTT 25.4 Sec (23.4-35.0) 09/17/24 01:30
Sodium 139 mmol/L (135-145) 09/18/24 06:52
Potassium 4.8 mmol/L (3.5-5.1) 09/18/24 06:52
BUN 29 mg/dl (7-17) H 09/18/24 06:52
Creatinine 1.6 mg/dL (0.6-1.0) H 09/18/24 06:52
Glucose 108 mg/dl (70-99) H 09/18/24 06:52
Vital Signs and I&O:
Vital Signs
Temp Pulse Resp BP Pulse Ox
97.8 F 66 16 132/67 96
09/18/24 11:30 09/18/24 11:30 09/18/24 11:30 09/18/24 11:30 09/18/24 11:30
Vital Signs
Temp Pulse Resp BP Pulse Ox
97.8 F 66 16 132/67 96
09/18/24 11:30 09/18/24 11:30 09/18/24 11:30 09/18/24 11:30 09/18/24 11:30
Intake & Output
09/16/24 09/17/24 09/18/24 09/19/24
07:59 07:59 07:59 07:59
Intake Total 1880 / 1880
Output Total 550 / 550 725 / 725
Balance -550 / -550 1155 / 1155
Physical Exam
Physical Exam
GEN: No distress, awake, alert, orientedx3, slurred speech
HEENT: supple, anicteric, mmm, eomi
LUNGS: CTA B/L, no wheezes/rales
CV: Reg, S1/S2, no murmur
ABD: soft, BS+, NT/ND
EXT: No cyanosis, clubbing, edema
NEURO: Gross non-focal
SKIN: Warm, pink, dry. No rash
--- NOTE | 2024-09-18 13:37 | W.PN.HOSP.TC ---
Today's Communication/Plan
-
PT/OT
Pur�ed diet
Bowel regimen
Assessment / Plan
Assessment / Plan
Gen-AAOx3, NAD, slurred speech
HEENT-NC, AT, anicteric, clear oral mm
Neck-supple
CV-reg, no M, +S1/S2
Lungs-clear B/L
Abd-soft, NT, ND
Ext-no edema
Musculoskeletal-no cyanosis, clubbing
Skin-warm and dry
Neuro-left facial droop
Psych-calm, cooperative
Acute right frontal parietal lobe infarct -brain MRI noted. Stroke is presumed to be embolic given atrial fibrillation.
CTA shows complete occlusion of the middle branch of the distal M2 of right MCA. Less than 30% stenosis of bilateral carotid bifurcations.
Await speech therapy, PT/OT.
Continue aspirin, atorvastatin.
Echocardiogram shows LVEF 61%. Indeterminate diastolic function. No significant change compared to echocardiogram from August 2023.
Acute traumatic displaced and impacted left femoral intertrochanteric fracture - due to fall and underlying osteoporosis. Stable postop. Underwent left hip intramedullary nailing, 09/17/2024. Weightbearing as tolerated with assist devices as per
orthopedics. Increased fall risk given acute stroke with left hemiparesis. PT/OT.
Acute dysphagia -due to acute stroke. Speech therapy recommends pur�ed diet, thin liquids. Strict aspiration precautions.
Essential hypertension/hypertensive emergency -initial blood pressure 175/106. Blood pressure now controlled, emergency resolved.
Rapid atrial fibrillation -new diagnosis. Anticoagulation after orthopedic surgery when okay with neurology service. Chads-VASc score of 6. Neurology recommends anticoagulation 1 to 2 weeks from now.
NATHALIE, presumed -creatinine noted to be 1.6 on admission, will trend. Baseline creatinine unknown. BUN elevated, suspect prerenal azotemia and volume depletion. Urinary retention noted, Carlos catheter inserted 09/17. She is constipated, bowel
regimen ordered.
Incidental thyroid nodules -noted on CTA, involving left hemithyroid. Outpatient thyroid ultrasound.
Hyperlipidemia
Anxiety/depression
Full code
Family updated at the bedside.
Anticipated Discharge: 24 - 48 hours
Subjective/Interval History
-
Date of Service: September 18, 2024
Patient seen and examined. No complaints.
Objective Data
-
Labs:
Laboratory Results
09/18/24
06:52
Sodium 139
Potassium 4.8
Chloride 107
Carbon Dioxide 19 L
BUN 29 H
Creatinine 1.6 H
Glucose 108 H
Calcium 8.8
Vital Signs:
Vital Signs
Temp Pulse Resp BP Pulse Ox
97.8 F 66 16 132/67 96
09/18/24 11:30 09/18/24 11:30 09/18/24 11:30 09/18/24 11:30 09/18/24 11:30
I&O
09/17/24 09/18/24 09/19/24
06:59 06:59 06:59
Intake Total 1879 / 1879
Output Total 550 / 550 725 / 725
Balance -550 / -550 1155 / 1155
Review of Systems
-
History Source: Patient
All other systems: Reviewed and negative
[2024-09-18] MEDS: MIRALAX 17 GRAMS PO (14:14)
[2024-09-18] MEDS: NSS IV (14:31)
[2024-09-18 15:05] VITALS: BP 124/75
--- NOTE | 2024-09-18 15:34 | CM ---
CM reviewed and spoke with dtr Jania
Pt does NOT have prescription drug plan
Willing to take on out of pocket cost for any necessary medications including Eliquis if needed
Update to on-call cardio
Dtr is requesting [facility] be arranged on dc
RUDY reviewed pt with Gaye/PT- acute recs
Referral made to [facility] via [facility]
Per Amber, PMR is not needed at this time
Discharge Disposition- anticipate [facility]
[2024-09-18] MEDS: LIPITOR 20 MG PO (17:13)
[2024-09-18 19:23] VITALS: BP 146/76
[2024-09-18] MEDS: LAC HYDRIN, AM LACTIN LOTION 1 APPLIC TOPICAL (19:50)
[2024-09-18] MEDS: REMERON 30 MG PO (19:50)
[2024-09-18 23:39] VITALS: BP 138/77
[2024-09-19] VITALS (8 sets, daily range): BP systolic 120–153; BP diastolic 74–94; PULSE 84–86; O2SAT 95
[2024-09-19] MEDS: TYLENOL 650 MG PO ×4 (04:18→21:00)
--- NOTE | 2024-09-19 07:02 | W.PN.UPDATE ---
Update Note
Progress Note Update
Ms. Flanagan is POD2 following her left hip gamma nail performed by Dr. El. She is resting comfortably in bed this morning. She denies any pain in the hip at present.
Directed exam of the left lower extremity reveals surgical dressings clean, dry and intact. No significant tenderness to palpation about the hip. Thigh soft and compressible. Calf soft and nontender. Patient able to wiggle toes, plantar and
dorsiflex ankle. NVID. VSS.
Hgb pending this AM. 12.0 yesterday.
83-year-old female postoperative day 2 left hip supplementary nail fixation performed under the direction of Dr. El
--WBAT to LLE with assistive device. Appreciate the assistance of PT/OT. Increased fall risk in setting of stroke.
--DVT ppx per primary in setting of stroke.
--Pain control prn. Ice and elevation for edema control.
--Hgb pending this AM. 12.0 yesterday. Continue to monitor.
--Maintain surgical dressing until 7-10 days post-op. Staple removal at 2 weeks post-op.
--Case management consult for discharge planning.
--Patient stable post-operatively from an orthopedic standpoint. Orthopedic surgery will sign off for now. Please reach out with any additional orthopedic questions or concerns.
[2024-09-19 07:59] LABS: % Basophils 0.3 % (0-2); % Eosinophils 0.5 % (0-6); % Immature Granulocytes 0.7 % (0-0.5); % Monocytes 10.3 % (1.7-9.3); % Neutrophils 71.2 % (42.2-75.2); Absolute Immature Granulocytes 0.1 10^3/uL (0-0.05); Absolute Lymphocytes 1.2 10^3/uL (1.2-3.4); Absolute Monocytes 0.8 10^3/uL (0.1-0.6); Absolute Neutrophils 5.2 10^3/uL (1.4-6.5); Hematocrit 25.1 % (37.0-47.0); Hemoglobin 8.3 g/dL (12.0-16.0); Mean Corp Hgb Conc. 33.1 g/dL (33.0-37.0); Mean Corpuscular Volume 90.6 fL (81.0-99.0); Mean Platelet Volume 10.8 fL (7.4-10.4); Nucleated Red Blood Cells % 0 %; Platelet Count 156 10^3/uL (130-400); Red Blood Cell Count 2.77 10^6/uL (4.20-5.40); Red Cell Dist. Width 13.6 % (11.5-14.5); White Blood Cell Count 7.3 10^3/uL (4.8-10.8)
[2024-09-19] MEDS: LAC HYDRIN, AM LACTIN LOTION 1 APPLIC TOPICAL ×2 (08:42→21:01)
[2024-09-19] MEDS: COLACE 100 MG PO ×2 (08:42→21:00)
[2024-09-19] MEDS: LOW STRENGTH ASPIRIN 81 MG PO (08:43)
[2024-09-19] MEDS: LOPRESSOR 25 MG PO ×2 (08:43→21:00)
[2024-09-19] MEDS: HEPARIN 5000 UNITS SC ×3 (08:43→23:37)
[2024-09-19] MEDS: SENOKOT 17.2 MG PO ×2 (08:43→21:00)
[2024-09-19] MEDS: MIRALAX 17 GRAMS PO (08:44)
[2024-09-19] MEDS: TRIAMCINOLONE ACETONIDE 0.1% CREAM 1 APPLIC TOPICAL ×2 (08:45→21:01)
[2024-09-19 08:52] LABS: Blood Urea Nitrogen 31 mg/dl (7-17); Calcium 8.6 mg/dl (8.4-10.2); Carbon Dioxide 20 mmol/L (22-30); Chloride 109 mmol/L (98-107); Estimated Creatinine Clearance 25 ml/min; Glucose 87 mg/dl (70-99); Potassium 4.1 mmol/L (3.5-5.1); Sodium 139 mmol/L (135-145); eGFR 37.33
[2024-09-19] MEDS: ROXICODONE 5 MG PO (10:51)
[2024-09-19] MEDS: TYLENOL PO ×2 (11:01→23:37)
--- NOTE | 2024-09-19 11:56 | W.PN.CARDCBS ---
Addendum entered and electronically signed by Francisco Javier Rodriguez MD 09/19/24 15:37:
I saw and examined the patient.
The Machine Shorthand Reporter's note was reviewed and I agree with the note.
Comment: Briefly, 83-year-old woman presenting after a fall found to have acute CVA in the setting of new atrial fibrillation. Fall was complicated by femoral neck fracture which required fixation on 09/17/2024.
Patient was resting comfortably in bed at the time of my evaluation
Maintaining sinus rhythm on review of telemetry
Continue metoprolol for rate control
Discussed with patient and family at bedside that ideally we would start anticoagulation to prevent recurrent CVA
Per neurology okay for Eliquis on 09/[address] is stable at that time
We will sign off, please recall as needed
Original Note:
Today's Communication / Plan
-
continue lopressor
for repeat head CT to be organized for 09/24 and if stable ok to start eliquis 2.5mg BID per neuro
PT/OT
OP cardiac follow up arranged
Impression / Plan
-
PCP: Dr. Naqvi
Sole Molding Machine Operator: None prior to admission
Impression:
Presented with fall, dizziness, slurred speech
Atrial fibrillation/flutter, new diagnosis
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
Acute displaced intertrochanteric L femoral neck fracture s/p L nail fixation 09/17/24
HTN
HLD
Anxiety/Depression
CKD 3a
Echo 08/22/2023: EF 60%, mild MR
Echo 09/17/2024: EF 61%, mild cLVH, posterior MAC, mild MR, aortic sclerosis, trace AR, mild dilated RA, mild to mod dilated aortic root
Plan:
-Presented with dizziness, fall, and slurred speech. Admitted with acute R CVA, L femoral neck fracture, and new afib.
-s/p L hip nail fixation by ortho 09/17/24
-maintaining SR on review of tele. continue lopressor 25mg BID
-d/w neurology via TT 09/19/24. plan for repeat head CT on 09/24/24 and if stable, ok to start eliquis 2.5mg BID. would stop asa when eliquis started
-echo with preserved EF
-LDL 89. Lipitor dose increased to 20mg daily
-she has residual L sided weakness. continue PT/OT. plan for SNF upon DC
-OP cardiac follow up arranged
-d/w family at bedside. d/w nursing
-will plan to sign off
HPI: Luba is an 83 year old female with PMH of hypertension, hyperlipidemia, anxiety, and CDK who presented to [facility] for evaluation after fall and slurred speech. About 1 week ago she had URI symptoms and also had some nausea/vomiting. Family
reports she was not quite herself, but felt this was likely related to her illness. Yesterday she then noted feeling some dizziness/lightheadedness and while in the bathroom fell and was unable to get up on her own. She was noted to have facial
droop and slurred speech and EMS was called. She was brought to as a pre-hospital stroke alert. She was not felt to be a candidate for IAT/tPA. Initial ECG reviewed and showed rapid atrial flutter with HR 110 bpm which was a new diagnosis. Family
notes she never complained of heart racing or palpitations. Also denies any chest pain or SOB. CT of the head was nonacute, but CTA showed occlusion of the middle division M2 branch of the R MCA along the mid to posterior insular cortex. Given L hip
pain, underwent CT of pelvis which showed acute displaced intertrochanteric L femoral neck fracture with surrounding intramuscular hemorrhage and edema. She was admitted and cardiology, neurology, and orthopedics were consulted. She remains in
atrial flutter on telemetry. HR stable overall in the 90s to low 100s. History mostly obtained by family at bedside given aphasia. She has no known cardiac history.
Progress Note - Sole Molding Machine Operator
Subjective
Date of Service: September 19, 2024
denies CP, SOB, palpitations.
Objective
Labs:
09/19/24 06:38
09/19/24 06:38
Labs
Hgb 8.3 g/dL (12.0-16.0) L D 09/19/24 06:38
Hct 25.1 % (37.0-47.0) L 09/19/24 06:38
Plt Count 156 10^3/uL (130-400) D 09/19/24 06:38
PT 13.8 Sec (11.4-14.6) 09/17/24 01:30
INR 1.03 09/17/24 01:30
APTT 25.4 Sec (23.4-35.0) 09/17/24 01:30
Sodium 139 mmol/L (135-145) 09/19/24 06:38
Potassium 4.1 mmol/L (3.5-5.1) 09/19/24 06:38
BUN 31 mg/dl (7-17) H 09/19/24 06:38
Creatinine 1.4 mg/dL (0.6-1.0) H 09/19/24 06:38
Glucose 87 mg/dl (70-99) 09/19/24 06:38
Vital Signs and I&O:
Vital Signs
Temp Pulse Resp BP Pulse Ox
98.3 F 96 16 153/94 96
09/19/24 11:10 09/19/24 11:10 09/19/24 11:10 09/19/24 11:10 09/19/24 11:10
Vital Signs
Temp Pulse Resp BP Pulse Ox
98.3 F 96 16 153/94 96
09/19/24 11:10 09/19/24 11:10 09/19/24 11:10 09/19/24 11:10 09/19/24 11:10
Intake & Output
09/17/24 09/18/24 09/19/24 09/20/24
07:59 07:59 07:59 07:59
Intake Total 1879 / 1879
Output Total 550 / 550 725 / 725 500 / 500
Balance -550 / -550 1155 / 1155 -500 / -500
Physical Exam
Physical Exam
GEN: No distress, awake, alert, oriented x3, slurred speech. sitting in chair
HEENT: supple, anicteric, mmm, eomi
LUNGS: CTA B/L, no wheezes/rales
CV: Reg, S1/S2, no murmur
ABD: soft, BS+, NT/ND
EXT: No cyanosis, clubbing, edema
NEURO: L sided weakness
SKIN: Warm, pink, dry. No rash
--- NOTE | 2024-09-19 12:45 | PN.CDI ---
CDI
- -
CDI:
Physician Documentation Request
Admit Date: 09/17/24 04:23
Dear Doctor Rosario
Progress notes state 'Acute right frontal parietal lobe infarct -brain MRI noted. Stroke is presumed to be embolic given atrial fibrillation.'
Progress also contain a diagnosis of hypertensive emergency- resolved
Please clarify if a relationship exist between these conditions:
Yes, Acute right frontal parietal lobe infarct is related to/associated with/due to/exacerbated by hypertensive emergency
No, Acute right frontal parietal lobe infarct is not related to/associated with/due to/exacerbated by hypertensive emergency
Unable to determine
Use of terms such as suspected, likely, concern for, or probable (associated with a specific diagnosis that is being evaluated, monitored, or treated as if it exists) are acceptable and can be coded in the inpatient setting, when documented at the
time of discharge.
Thank you,
Юлия Aguilar RN, BSN
CDI Specialist
tiger text
Please use your independent medical judgment in providing your response.
--- NOTE | 2024-09-19 12:47 | W.PN.HOSP.TC ---
Addendum entered and electronically signed by Ian Ponce DO 09/19/24 13:24:
Yes, Acute right frontal parietal lobe infarct is related to hypertensive emergency
Original Note:
Today's Communication/Plan
-
Continue current care
Assessment / Plan
Assessment / Plan
Gen-AAOx3, NAD, slurred speech
HEENT-NC, AT, anicteric, clear oral mm
Neck-supple
CV-reg, no M, +S1/S2
Lungs-clear B/L
Abd-soft, NT, ND
Ext-no edema
Musculoskeletal-no cyanosis, clubbing
Skin-warm and dry
Neuro-left facial droop
Psych-calm, cooperative
Acute right frontal parietal lobe infarct -brain MRI noted. Stroke is presumed to be embolic given atrial fibrillation.
CTA shows complete occlusion of the middle branch of the distal M2 of right MCA. Less than 30% stenosis of bilateral carotid bifurcations.
Await speech therapy, PT/OT.
Continue aspirin, atorvastatin.
Echocardiogram shows LVEF 61%. Indeterminate diastolic function. No significant change compared to echocardiogram from August 2023.
Acute traumatic displaced and impacted left femoral intertrochanteric fracture - due to fall and underlying osteoporosis. Stable postop. Underwent left hip intramedullary nailing, 09/17/2024. Weightbearing as tolerated with assist devices as per
orthopedics. Increased fall risk given acute stroke with left hemiparesis. PT/OT.
Acute dysphagia -due to acute stroke. Speech therapy recommends pur�ed diet, thin liquids. Strict aspiration precautions.
Essential hypertension/hypertensive emergency -initial blood pressure 175/106. Blood pressure now controlled, emergency resolved.
Rapid atrial fibrillation -new diagnosis. Heart rate now controlled. Anticoagulation after orthopedic surgery when okay with neurology service. Chads-VASc score of 6. Neurology recommends repeat CT head next week and if negative can start
anticoagulation with Eliquis. Discussed with patient and family.
Acute postop anemia -hemoglobin 8.3 today. Suspect operative blood loss anemia. Doubt active bleeding. Recheck hemoglobin tomorrow.
NATHALIE, presumed -creatinine trending down, 1.4 today. BUN elevated, suspect prerenal azotemia and volume depletion. Urinary retention noted, Carlos catheter inserted 3/. She is constipated, bowel regimen ordered.
Incidental thyroid nodules -noted on CTA, involving left hemithyroid. Outpatient thyroid ultrasound.
Hyperlipidemia
Anxiety/depression
Full code
Dispo -awaiting transfer to [facility]. Physiatry consulted.
Family updated at the bedside.
Anticipated Discharge: Within 24 hours
Subjective/Interval History
-
Date of Service: September 19, 2024
Patient seen and examined. No complaints.
Objective Data
-
Labs:
Laboratory Results
09/19/24
06:38
WBC 7.3
Hgb 8.3 L D
Hct 25.1 L
Plt Count 156 D
Sodium 139
Potassium 4.1
Chloride 109 H
Carbon Dioxide 20 L
BUN 31 H
Creatinine 1.4 H
Glucose 87
Calcium 8.6
Vital Signs:
Vital Signs
Temp Pulse Resp BP Pulse Ox
98.3 F 96 16 153/94 96
09/19/24 11:10 09/19/24 11:10 09/19/24 11:10 09/19/24 11:10 09/19/24 11:10
I&O
09/18/24 09/19/24 09/20/24
06:59 06:59 06:59
Intake Total 1880 / 1880
Output Total 725 / 725 500 / 500
Balance 1155 / 1155 -500 / -500
Review of Systems
-
History Source: Patient
All other systems: Reviewed and negative
[2024-09-19] MEDS: DULCOLAX 10 MG RECTAL (14:25)
--- NOTE | 2024-09-19 16:18 | CM ---
Chart reviewed
PT/OT recs - acute
Spoke with [facility] - requesting PM&R
Hospitalist made aware
Plan - anticipate acute rehab when medically ready
[2024-09-19] MEDS: LIPITOR 20 MG PO (17:54)
[2024-09-19] MEDS: REMERON 30 MG PO (21:00)
[2024-09-19] MEDS: DILAUDID 0.25 MG IV (22:11)
[2024-09-20 03:11] VITALS: BP 139/71
[2024-09-20] MEDS: TYLENOL PO ×2 (04:09→12:38)
[2024-09-20 06:39] LABS: % Basophils 0.3 % (0-2); % Eosinophils 1.3 % (0-6); % Immature Granulocytes 0.6 % (0-0.5); % Lymphocytes 16.8 % (20.5-51.1); % Monocytes 7.7 % (1.7-9.3); % Neutrophils 73.3 % (42.2-75.2); Absolute Eosinophils 0.1 10^3/uL (0-0.7); Absolute Lymphocytes 1.2 10^3/uL (1.2-3.4); Absolute Monocytes 0.5 10^3/uL (0.1-0.6); Absolute Neutrophils 5.1 10^3/uL (1.4-6.5); Hematocrit 27.4 % (37.0-47.0); Hemoglobin 8.9 g/dL (12.0-16.0); Mean Corp Hgb Conc. 32.5 g/dL (33.0-37.0); Mean Corpuscular Hgb 29.8 pg (27.0-31.0); Mean Corpuscular Volume 91.6 fL (81.0-99.0); Nucleated Red Blood Cells % 0 %; Platelet Count 185 10^3/uL (130-400); Red Blood Cell Count 2.99 10^6/uL (4.20-5.40); Red Cell Dist. Width 13.6 % (11.5-14.5); White Blood Cell Count 6.9 10^3/uL (4.8-10.8)
[2024-09-20 07:10] VITALS: BP 158/83
[2024-09-20 08:17] LABS: Blood Urea Nitrogen 31 mg/dl (7-17); Calcium 9.1 mg/dl (8.4-10.2); Carbon Dioxide 24 mmol/L (22-30); Chloride 110 mmol/L (98-107); Estimated Creatinine Clearance 29 ml/min; Glucose 86 mg/dl (70-99); Potassium 4.3 mmol/L (3.5-5.1); Sodium 141 mmol/L (135-145); eGFR 44.91
[2024-09-20] MEDS: TYLENOL 650 MG PO ×2 (09:50→17:46)
[2024-09-20] MEDS: LOW STRENGTH ASPIRIN 81 MG PO (09:51)
[2024-09-20] MEDS: SENOKOT 17.2 MG PO (09:51)
[2024-09-20] MEDS: LOPRESSOR 25 MG PO (09:51)
[2024-09-20] MEDS: COLACE 100 MG PO (09:51)
[2024-09-20] MEDS: HEPARIN 5000 UNITS SC ×2 (09:52→17:46)
[2024-09-20] MEDS: MIRALAX 17 GRAMS PO (09:52)
[2024-09-20] MEDS: LAC HYDRIN, AM LACTIN LOTION 1 APPLIC TOPICAL (09:53)
[2024-09-20] MEDS: TRIAMCINOLONE ACETONIDE 0.1% CREAM TOPICAL (09:54)
[2024-09-20 11:20] VITALS: BP 112/70
--- NOTE | 2024-09-20 11:20 | W.PN.HOSP.TC ---
Today's Communication/Plan
-
Discharge planning
Assessment / Plan
Assessment / Plan
Gen-AAOx3, NAD, slurred speech improving
HEENT-NC, AT, anicteric, clear oral mm
Neck-supple
CV-reg, no M, +S1/S2
Lungs-clear B/L
Abd-soft, NT, ND
Ext-no edema
Musculoskeletal-no cyanosis, clubbing
Skin-warm and dry
Neuro-left facial droop
Psych-calm, cooperative
Acute right frontal parietal lobe infarct -brain MRI noted. Stroke is presumed to be embolic given atrial fibrillation.
CTA shows complete occlusion of the middle branch of the distal M2 of right MCA. Less than 30% stenosis of bilateral carotid bifurcations.
Continue aspirin, atorvastatin.
Echocardiogram shows LVEF 61%. Indeterminate diastolic function. No significant change compared to echocardiogram from August 2023.
Acute traumatic displaced and impacted left femoral intertrochanteric fracture - due to fall and underlying osteoporosis. Stable postop. Underwent left hip intramedullary nailing, 09/17/2024. Weightbearing as tolerated with assist devices as per
orthopedics. Increased fall risk given acute stroke with left hemiparesis. PT/OT.
Acute dysphagia -due to acute stroke. Speech therapy recommends pur�ed diet, thin liquids. Strict aspiration precautions.
Essential hypertension/hypertensive emergency -initial blood pressure 175/106. Blood pressure now controlled, emergency resolved.
Rapid atrial fibrillation -new diagnosis. Heart rate now controlled. Anticoagulation after orthopedic surgery when okay with neurology service. Chads-VASc score of 6. Neurology recommends repeat CT head next week and if negative can start
anticoagulation with Eliquis. Discussed with patient and family.
Acute postop anemia -hemoglobin improved to 8.9 today. Suspect operative blood loss anemia. Doubt active bleeding.
NATHALIE, presumed -creatinine trending down, 1.2 today. BUN elevated, suspect prerenal azotemia and volume depletion. Urinary retention noted, Carlos catheter inserted 09/17. Had a bowel movement today.
Incidental thyroid nodules -noted on CTA, involving left hemithyroid. Outpatient thyroid ultrasound.
Hyperlipidemia
Anxiety/depression
Full code
Dispo -awaiting transfer to [facility]. Medically stable for discharge. Physiatry consulted.
Tried to examine patient's right ear with otoscope but no working otoscope available on the floor. Offered her Debrox solution for earwax but she declined.
Family updated at the bedside.
Anticipated Discharge: Within 24 hours
Subjective/Interval History
-
Date of Service: September 20, 2024
Patient seen and examined. Complaining of mild right ear fullness, concerned about wax.
Objective Data
-
Labs:
Laboratory Results
09/20/24
05:23
WBC 6.9
Hgb 8.9 L
Hct 27.4 L
Plt Count 185
Sodium 141
Potassium 4.3
Chloride 110 H
Carbon Dioxide 24
BUN 31 H
Creatinine 1.2 H
Glucose 86
Calcium 9.1
Vital Signs:
Vital Signs
Temp Pulse Resp BP Pulse Ox
98.2 F 84 18 158/83 98
09/20/24 07:10 09/20/24 07:10 09/20/24 07:10 09/20/24 07:10 09/20/24 07:10
I&O
09/19/24 09/20/24 09/21/24
06:59 06:59 06:59
Intake Total 360 / 360
Output Total 500 / 500 1000 / 1000
Balance -500 / -500 -1000 / -1000 360 / 360
Review of Systems
-
History Source: Patient
All other systems: Reviewed and negative
[2024-09-20 11:23] VITALS: BMI 23.4
[2024-09-20] MEDS: ROXICODONE 5 MG PO (11:32)
[2024-09-20 12:50] VITALS: BP 105/67; PULSE 74; O2SAT 98
--- NOTE | 2024-09-20 13:49 | CM ---
Addendum entered by Patricia Carrera 09/20/24 14:29:
Received call from Elmo at [facility] - can accept today
Dr Ponce made aware
Updated RN via TT
Spoke with pt and family at bedside - updated
Reviewed IMM
Plan - transfer to [facility]
R - [phone]
F - [phone]
Original Note:
Spoke with Elmo from [facility] - reviewed chart. Reports she will contact PMR requesting consult to be completed today
Admission to [facility] Pending PMR consult
Hospitalist aware
--- NOTE | 2024-09-20 14:31 | W.DS.TRANS ---
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
-
Discharge Instructions:
Discharge Diagnosis/Procedures Acute stroke, left hip fracture, dysphagia,
hypertensive emergency, atrial fibrillation,
postop anemia, left hip gamma nail, 09/17/2024, AR
Diet Other diet
Additional Diets Pur�ed
Activity With assistance
Driving Restrictions Not until seen by your Dr
Bathing Restrictions OK to Shower
Instructions:
Stand-Alone Forms:
Changes to Home Medications: No
Discharge Medications:
DC Medications w/original date entered in [employer]
mirtazapine 30 mg tablet 30 mg PO DAILY@1999 Mental Health/Anxiety 08/16/23
triamcinolone acetonide 0.1 % topical cream 1 applic topical BID apply to right ankle/left elbow/lower back 08/16/23
bupropion HCl 150 mg 24 hr tablet, extended release 150 mg PO DAILY 09/17/24
ammonium lactate 12 % lotion 1 applic topical BID #225 grams 09/20/24
aspirin 81 mg chewable tablet 81 mg PO DAILY #0 tabs 09/20/24
atorvastatin 20 mg tablet 20 mg PO QPM #0 tabs 09/20/24
docusate sodium 100 mg capsule 100 mg PO BID #0 caps 09/20/24
metoprolol tartrate 25 mg tablet 25 mg PO BID #0 tabs 09/20/24
polyethylene glycol 3350 17 gram oral powder packet 17 g PO DAILY #0 ea 09/20/24
Home Medication Changes
Pending Results: No
--- NOTE | 2024-09-20 14:40 | PTOTSP ---
Speech Language Pathology
Pt seen for dysphagia tx. Daughter present at bedside. Pt sitting in recliner upon arrival, drinking from straw. Daughter reported cough with coffee x1. At rest, raspy vocal quality noted with questionable wetness. Able to clear with throat
clear/reswallow. Pt reported decreased appetite secondary to texture of food.
P.O. trials of puree and thin liquids provided. Inconsistent oral phase noted. At times, especially with puree, prolonged bolus formation and A-P transit noted with what appeared to be difficulty initiating swallow with effort noted via facial
expressions. At other times, oral phase was timely. Post puree, delayed cough noted x1. Unsure if related to P.O. intake. Slight change in vocal quality returned at times with P.O. trials. Pt is at increased risk for aspiration, including
silent aspiration, given acute CVA.
Recommend:
(1) VSE to determine least restrictive diet. Pt may discharge to [facility] this date. Would not hold discharge for this. Can send for VSE once at [facility]
(2) Continue IDDSI Level 4 (Puree) and thin liquid
(3) Aspiration precautions: sit upright, slow rate, single sips, full supervision with assist as needed, ensure oral cavity clear post P.O. intake
(4) Meds crushed in puree
(5) VISITOR USE ASSISTANT to continue to follow
[2024-09-20 14:46] VITALS: BP 105/67; PULSE 74; O2SAT 98
[2024-09-20 15:05] VITALS: BP 124/77
--- NOTE | 2024-09-20 16:23 | PTCARENOTE ---
Tried to call report to [facility], nurse was not available for report. RN gave 2 south extension to call back
[2024-09-20] MEDS: LIPITOR 20 MG PO (17:45)
== END 2024-09-20 18:15 | DRG 981 ==
LOC: 2 SOUTH 04:23
PROVIDERS: ADMITTING PHYSICIAN Internal Medicine; ATTENDING PHYSICIAN Hospitalist; CONSULT PHYSICIAN Orthopaedic Surgery Hand Surgery; EMERGENCY PHYSICIAN Student in an Organized Health Care Education/Training Program; FAMILY PHYSICIAN Family Medicine; OTHER PHYSICIAN Internal Medicine Cardiovascular Disease; OTHER PHYSICIAN Psychiatry & Neurology Neurology
PROC: 0QS706Z Reposition Left Upper Femur with Intramedullary Internal Fixation Device, Open Approach (ICD-10-PCS; 2024-09-17)
DX: I63.411 Cerebral infarction due to embolism of right middle cerebral artery (principal); S72.142A Displaced intertrochanteric fracture of left femur, initial encounter for closed fracture; I48.92 Unspecified atrial flutter; M80.052A Age-related osteoporosis with current pathological fracture, left femur, initial encounter for fracture; I16.1 Hypertensive emergency; N17.9 Acute kidney failure, unspecified; D62 Acute posthemorrhagic anemia; G93.49 Other encephalopathy; R41.4 Neurologic neglect syndrome; R47.01 Aphasia; W18.30XA Fall on same level, unspecified, initial encounter; I48.91 Unspecified atrial fibrillation; I12.9 Hypertensive chronic kidney disease with stage 1 through stage 4 chronic kidney disease, or unspecified chronic kidney disease; N18.31 Chronic kidney disease, stage 3a; E78.00 Pure hypercholesterolemia, unspecified; F41.9 Anxiety disorder, unspecified; F32.9 Major depressive disorder, single episode, unspecified; R47.1 Dysarthria and anarthria; R29.810 Facial weakness; Z88.2 Allergy status to sulfonamides; Z79.82 Long term (current) use of aspirin; Z79.899 Other long term (current) drug therapy
CPT/HCPCS: 70450; 70496; 70498; 70551; 72192; 73502; 76000; 80048; 80053; 80061; 81003; 81015; 82962; 83036; 84443; 85025; 85027; 85610; 85652; 85730; 86850; 86900; 86901; 87077; 87086; 87147; 87186; 92507; 92523; 92526; 92610; 93005; 93306; 96374; 96375; 97110; 97112; 97163; 97167; 97530; 97535; 99291; Q9967

== ENCOUNTER 2024-09-21 15:44 | Emergency (ER) | payer MEDICARE, SELFPAY ==
[2024-09-21 15:50] VITALS: BP 145/87; BMI 21.0
--- NOTE | 2024-09-21 15:52 | ED.GENMED ---
History of Present Illness
General
Chief Complaint: Catheter/Tube Problem
Source: patient
Exam Limitations: none
Time Seen by Provider: 09/21/24 15:48
History of Present Illness
History of Present Illness:
See MDM
Past History
Past History
ED Past Medical History: CVA
ED Past Surgical History: Orthopedic
Social History
Tobacco: Non-smoker
Alcohol: None
Phy Exam
Physical Exam
Physical Exam:
See MDM
Course
Orders/Labs/Results
Orders:
Orders
09/21/24 16:07
CR Chest Portable - 1 View Urgent
Comment:
Reason For Exam: dobhoff placed
Reason Study Needs to be Portable: Patient Unstable
Vital Signs
Initial and Last Documented VS:
Initial Vital Signs
Temp Pulse Resp BP Pulse Ox
98.4 F 116 18 145/87 97
09/21/24 15:50 09/21/24 15:50 09/21/24 15:50 09/21/24 15:50 09/21/24 15:50
Last Documented Vital Signs
Temp Pulse Resp BP Pulse Ox
98.4 F 116 18 145/87 97
09/21/24 15:50 09/21/24 15:50 09/21/24 15:50 09/21/24 15:50 09/21/24 15:50
Procedures
Other
Indication for procedure:: Dobbhof placement
Procedure completed by: Segundo Carter DO
Consent form signed: No
Additional Procedure:
After verbal consent was obtained, Dobbhoff was placed in the left nostril without difficulty. Patient tolerated procedure well. It was secured at 45 cm. Postprocedure chest x-ray shows placement below the diaphragm
MDM/Problems Addressed
Differential Diagnosis Includes:
HPI and MDM Narrative:
83-year-old female presenting for loss rehab for Dobbhoff placement. She was recently admitted for hip fracture where she was also found to have a large stroke. The fracture was fixed and she was sent to [place] [facility] earlier today. She continues to
fail the swallow studies or to the emergency department for Dobbhoff placement
On exam, patient is well-appearing nontoxic. She is sitting in bed comfortably and offers no complaint
Physical exam
General: Well appearing and non-toxic
HEENT: protecting airway
Neck: appears supple
CV: No evidence of cyanosis
Resp: No accessory muscle use
Abd: Non-distended
Extremities: No deformities
Neuro: alert
Psych: Normal affect
Skin: Intact
Problems Addressed including Acute and Chronic Conditions affecting care:
1. Persistent failure of swallowing test
Acuity: acute
Prognosis: stable
Details: Given her inability to tolerate p.o., she was sent to the emergency department for Dobbhoff placement
Updates
3:55 PM daughter and family at bedside and gave verbal consent for Dobbhoff tube placement. Patient also gave verbal consent. It appears that they are discussing Dobbhoff versus PEG tube. They are opting for the Dobbhoff tube at the moment with
hopes that she may be able to start eating again without requiring PEG placement
4:23 PM after Dobbhoff placement, bedside x-ray confirms that it is below the diaphragm and in the stomach. Will 5 cm further to 50 cm
Differential Diagnosis (but not limited to): Subacute stroke, dysphagia, dehydration
Testing considered: CT head
Drug therapy (if applicable): OTC meds, please see d/c instruction regarding Rx drugs
Amount and/or Complexity of Data Reviewed
Clinical info obtained from: Patient
External data reviewed: N/A
Labs I independently reviewed (but not limited to): N/A
Radiology: X-ray independently reviewed: Chest x-ray shows Dobbhoff below diaphragm
Pulse Ox: not hypoxic
EKG independently reviewed: N/A
Family Resource Management Professor: N/A
Critical Care: N/A
Risk of Complication:
Social Determinants of health: Good social support
Discussed with other providers: N/A
Escalation of Care includes Admit/Obs: After being observed in the Emergency Department, pt stable for discharge.
Occasional wrong word or 'sound a like' substitutions may have occurred due to the inherent limitations of voice recognition software. Read the chart carefully and recognize, using context, where substitutions have occurred.
*Critical Care Note
Total Time (30-74mins, 75-104mins- exclusive of procedures): Not Applicable
ED Attending Note
-
Portions of this chart may have been created with voice recognition software.� Occasional wrong word or��sound alike� substitutions may have occurred due to the inherent limitations of voice recognition software.
Discharge Plan
Departure
Patient Disposition: Acute Rehab Facility
Date of Disposition: 09/21/24
Time of Disposition: 16:24
Patient with high blood pressure during this ER visit?: Yes
Discharge Problem:
Encounter for feeding tube placement
Instructions: BLOOD PRESSURE
Prescriptions:
No Action
triamcinolone acetonide 0.1 % Cream
1 applic TOPICAL BID
mirtazapine 30 mg Tablet
30 mg PO DAILY@1999
bupropion HCl 150 mg Tablet Extended Release 24 Hr
150 mg PO DAILY
atorvastatin 20 mg Tablet
20 mg PO QPM Qty: 0 0RF
ammonium lactate 12 % Lotion
1 applic topical BID Qty: 225 0RF
polyethylene glycol 3350 17 gram Powder In Packet
17 g PO DAILY Qty: 0 0RF
docusate sodium 100 mg Capsule
100 mg PO BID Qty: 0 0RF
aspirin 81 mg Tablet,Chewable
81 mg PO DAILY Qty: 0 0RF
metoprolol tartrate 25 mg Tablet
25 mg PO BID Qty: 0 0RF
Referrals:
Naqvi,Namita A., MD [Family Provider] -
Activity Restrictions/Additional Instructions:
The Dobbhoff was placed in the emergency department. Postprocedure chest x-ray confirms that it is below the diaphragm. The Dobbhoff is safe to use.
Interventions
Interventions:
*Risk Screen - Suicide Last Done: 09/21/24 15:50
*Neglect/Abuse Screening Last Done: 09/21/24 15:50
QN-Rqdfvn-Rogcxrbxoh Assessment Last Done: 09/21/24 16:07
Discharge Date and Time
Print Language: SERBIAN
== END 2024-09-21 17:08 ==
LOC: EMR 15:44
PROVIDERS: EMERGENCY PHYSICIAN Student in an Organized Health Care Education/Training Program; FAMILY PHYSICIAN Family Medicine
DX: Z46.59 Encounter for fitting and adjustment of other gastrointestinal appliance and device (principal); R03.0 Elevated blood-pressure reading, without diagnosis of hypertension
CPT/HCPCS: 99283; 71045

== ENCOUNTER 2024-09-21 21:44 | Emergency (ER) | payer MEDICARE, SELFPAY ==
[2024-09-21 21:48] VITALS: BP 158/98
[2024-09-21 21:54] VITALS: BMI 20.1
[2024-09-21 22:00] VITALS: BP 157/94
[2024-09-21 23:00] VITALS: BP 140/87
--- NOTE | 2024-09-21 23:05 | ED.GENMED ---
History of Present Illness
General
Chief Complaint: Catheter/Tube Problem
Source: patient, family and previous hospital records (Recent hospitalization for acute right MCA stroke as well as hip fracture)
Exam Limitations: none
Time Seen by Provider: 09/21/24 22:31
Nursing documentation reviewed up to this point in time: agreed with
History of Present Illness
History of Present Illness:
This is an 83-year-old woman who was acutely hospitalized September 17 after syncopal event at home where she suffered a left hip fracture. She was noted to have acute slurred speech and left-sided facial droop which resolved upon arrival to the ED.
Found to have acute right MCA CVA. With resolution of symptoms patient was not a TNK candidate. Noted to have new onset A-fib.
She underwent left hip fracture repair September 17 she underwent left hip fracture repair September 17 and transferred to [place] [facility] earlier today.
Video swallowing evaluation performed today shows silent aspiration and after discussion with patient and family regarding nutritional support options including NG tube versus PEG tube, family and patient elected NG tube and she was transferred to
this ED this afternoon where an 8 Nicaraguan Dobbhoff tube was placed successfully. Placement verified with chest x-ray. [facility] but according to nursing records Dobbhoff tube is clogged, patient received 4 mL of tube feeding
only. Unsuccessful at declogging tube and she is sent back to the ED for further evaluation.
Patient denies pain. There has been no reports of vomiting. No fever no chills, no cough, no chest pain.
Past History
Past History
ED Past Medical History: Arrthythmia (Atrial fibrillation), CVA and HTN
ED Past Surgical History: Orthopedic (Left hip fracture repair September 17, 2024)
Social History
Tobacco: Non-smoker
Alcohol: None
Personal:
Living: other (Currently inpatient at [facility])
Family History
Family History: Other (Noncontributory)
Phy Exam
Physical Exam
Physical Exam:
GENERAL: 83-year-old woman appears her stated age, awake and alert, pleasant, appears in no acute distress. Granddaughter at bedside.
EYE: . anicteric
NECK: Supple, nontender, no meningismus, no significant adenopathy.
ENT: 8 Nicaraguan Dobbhoff tube in place left nostril. Posterior pharynx is clear.
CARDIAC: Regular rate and rhythm. no murmur.
LUNGS: Clear breath sounds bilaterally, no acute respiratory distress, no wheezes/rales/rhonchi
ABDOMEN: Soft, nondistended, without focal tenderness
NEUROLOGICAL: Alert and oriented x3, Babinski positive on the left.
SKIN: Warm and dry, normal color, skin intact. No rash.
MUSCULOSKELETAL: No C/C/E. peripheral pulses are full and equal b/l. No palpable tenderness.
PSYCH: Normal and appropriate interaction.
Course
Orders/Labs/Results
Orders:
Orders
09/22/24 00:55
Lidocaine 2% [Lidocaine Uro-Jet 2%] 1 syringe .ROUTE .[employer]-MED ONE
09/22/24 01:07
CR Chest Portable - 1 View Urgent
Comment:
Reason For Exam: NGT placement
Reason Study Needs to be Portable: Unable to Transport
Vital Signs
Initial and Last Documented VS:
Initial Vital Signs
Temp Pulse Resp BP Pulse Ox
98.5 F 118 18 158/98 97
09/21/24 21:48 09/21/24 21:48 09/21/24 21:48 09/21/24 21:48 09/21/24 21:48
Last Documented Vital Signs
Temp Pulse Resp BP Pulse Ox
98.5 F 105 14 145/80 98
09/21/24 21:48 09/21/24 23:00 09/21/24 23:00 09/22/24 00:00 09/22/24 00:15
MDM/Problems Addressed
Differential Diagnosis Includes:
I have reviewed recent hospitalization, ED visit from this afternoon.
Dobbhoff NG tube appears to be in place but is quite small in diameter, only 8 Nicaraguan which I suspect is reason for acute clogging.
Will plan to remove this Dobbhoff and replaced with a larger Nicaraguan Dobbhoff tube.
Chronic conditions affecting care: HTN, Arrhythmia, Neurological disorder (Recent right MCA ischemic stroke with dysphagia) and Other (Recent left hip fracture with repair September 17. )
*Pulse Oximetry
Patient hypoxic: no
*Critical Care Note
Total Time (30-74mins, 75-104mins- exclusive of procedures): Not Applicable
Update Note
Update Note:
01:40
Apparently our only Dobbhoff tube size is 8 Nicaraguan which appears to be too small of a diameter.
As such Dobbhoff removed by myself without incident and replaced with 16 Nicaraguan NG tube, inserted into left nostril.
Gastric bubble auscultated over the stomach and portable chest x-ray obtained for verification of placement which shows NG tube below the diaphragm slightly curved in the stomach. Patient tolerated procedure well. NG tube secured to the nose and
she will be transferred back to [place] [facility] for continued care.
ED Attending Note
-
Portions of this chart may have been created with voice recognition software.� Occasional wrong word or��sound alike� substitutions may have occurred due to the inherent limitations of voice recognition software.
Discharge Plan
Departure
Patient Disposition: Acute Rehab Facility
Date of Disposition: 09/22/24
Time of Disposition: 01:48
Discharge Problem:
Encounter for nasogastric (NG) tube placement, At risk for aspiration
Instructions: How to Care for Nasogastric Tube
Prescriptions:
No Action
triamcinolone acetonide 0.1 % Cream
1 applic TOPICAL BID
mirtazapine 30 mg Tablet
30 mg PO DAILY@1999
bupropion HCl 150 mg Tablet Extended Release 24 Hr
150 mg PO DAILY
atorvastatin 20 mg Tablet
20 mg PO QPM Qty: 0 0RF
ammonium lactate 12 % Lotion
1 applic topical BID Qty: 225 0RF
polyethylene glycol 3350 17 gram Powder In Packet
17 g PO DAILY Qty: 0 0RF
docusate sodium 100 mg Capsule
100 mg PO BID Qty: 0 0RF
aspirin 81 mg Tablet,Chewable
81 mg PO DAILY Qty: 0 0RF
metoprolol tartrate 25 mg Tablet
25 mg PO BID Qty: 0 0RF
Referrals:
Namita Naqvi MD [Family Provider] -
Interventions
Interventions:
*Risk Screen - Suicide Last Done: 09/21/24 21:48
*General Assessment Last Done: 09/21/24 21:48
*Neglect/Abuse Screening Last Done: 09/21/24 21:48
*ED- Fall Risk Assessment Last Done: 09/21/24 21:48
*ED COVID-19 Vaccine History Last Done: 09/21/24 21:48
BA-Dwfsju-Edfwuecpaa Assessment Last Done: 09/21/24 21:48
ED-Female Genitourinary Assessment Last Done: 09/21/24 21:48
Discharge Date and Time
Print Language: GREENLANDIC
[2024-09-22] VITALS: BP 145/80
[2024-09-22 01:00] VITALS: BP 127/103
== END 2024-09-22 01:54 ==
LOC: EMR 21:44
PROVIDERS: EMERGENCY PHYSICIAN Emergency Medicine; FAMILY PHYSICIAN Family Medicine
DX: Z46.59 Encounter for fitting and adjustment of other gastrointestinal appliance and device (principal); I10 Essential (primary) hypertension
CPT/HCPCS: 99283; 71045

== ENCOUNTER 2024-09-24 19:41 | Emergency (ER) | payer MEDICARE, SELFPAY ==
[2024-09-24 19:47] VITALS: BP 128/72; BMI 23.1
--- NOTE | 2024-09-24 20:17 | ED.GENMED ---
History of Present Illness
General
Chief Complaint: Catheter/Tube Problem
Time Seen by Provider: 09/24/24 19:47
History of Present Illness
History of Present Illness:
83-year-old female with recent diagnosis of stroke with left sided weakness and aphasia presenting to the emergency department because her NG tube has been dislodged. [facility] where she had sneezed and the NG tube came out.
Patient has had dysphagia, with concern for aspiration, so has been getting her medications and food through her NG tube with possible ultimate plan for PEG tube. Patient presents to the ER for replacement of the NG tube. Patient without present
complaint such as chest pain, difficulty breathing, abdominal pain. No report of fever. No additional history obtained at this time
Past History
Past History
ED Past Medical History: Arrthythmia (Atrial fibrillation), CVA and HTN
ED Past Surgical History: Orthopedic (Left hip fracture repair September 17, 2024)
Social History
Tobacco: Non-smoker
Alcohol: None
Personal:
Living: other (Currently inpatient at [facility])
Family History
Family History: Other (Noncontributory)
Phy Exam
Physical Exam
Physical Exam:
General: Well-appearing, no clinical signs of dehydration, nontoxic and in no acute distress
HEENT: protecting airway
Neck: appears supple
CV: Normal heart rate, regular rhythm
Resp: No accessory muscle use, no increased work of breathing, lungs clear to auscultation bilaterally
Abd: Soft and non-distended, no tenderness to palpation
Extremities: No deformities, no swelling. Status post hip replacement, some mild bruising to the left lateral hip without any significant swelling or redness.
Neuro: alert, dysphagia with weakness to left lower extremity.
: deferred
Rectal: deferred
Psych: Normal affect
Skin: Intact
Course
Orders/Labs/Results
Orders:
Orders
09/24/24 20:21
CR Abdomen, Portable - 1 View Urgent
Comment:
Reason For Exam: confirm NGT
09/24/24 20:31
NG Tube [GI tube insertion- Treatment] ONCE
NG Tube [Gastrointestinal Tubes] As Directed
Type: Ethan murphy
To suction?: No
Irrigate tube?: No
09/24/24 21:20
Obstruct Series W/PA Chest [CR Obstruct Series W/pa Chest] Urgent
Comment:
Reason For Exam: s/p NGT placement
Vital Signs
Initial and Last Documented VS:
Initial Vital Signs
Temp Pulse Resp BP Pulse Ox
98.1 F 113 18 128/72 98
09/24/24 19:47 09/24/24 19:47 09/24/24 19:47 09/24/24 19:47 09/24/24 19:47
Last Documented Vital Signs
Temp Pulse Resp BP Pulse Ox
98.1 F 90 18 133/85 96
09/24/24 19:47 09/24/24 21:01 09/24/24 21:01 09/24/24 21:01 09/24/24 21:01
MDM/Problems Addressed
MDM/Problems Addressed:
83-year-old female presenting for replacement of NG tube. Vital signs are normal.
On exam patient is resting comfortably, no acute distress or discomfort. Patient's NG tube was accidentally dislodged while at [place] [facility], recovering from ischemic stroke and left hip replacement. Will replace NG tube. Patient otherwise is
hemodynamically stable without acute complaints. Without additional acute medical errors at this time.
20:25 - NG tube placed. Will confirm with x-ray plan for [facility] to [facility]
21:20 -inability to see tube on initial x-ray. Tube was repositioned. Will repeat x-ray
*Critical Care Note
Total Time (30-74mins, 75-104mins- exclusive of procedures): Not Applicable
ED Attending Note
-
Portions of this chart may have been created with voice recognition software.� Occasional wrong word or��sound alike� substitutions may have occurred due to the inherent limitations of voice recognition software.
Discharge Plan
Departure
Patient with high blood pressure during this ER visit?: No
Condition: Good
Discharge Problem:
Encounter for nasogastric (NG) tube placement
Instructions: How to Care for Nasogastric Tube
Prescriptions:
No Action
triamcinolone acetonide 0.1 % Cream
1 applic TOPICAL BID
mirtazapine 30 mg Tablet
30 mg PO DAILY@1999
bupropion HCl 150 mg Tablet Extended Release 24 Hr
150 mg PO DAILY
atorvastatin 20 mg Tablet
20 mg PO QPM Qty: 0 0RF
ammonium lactate 12 % Lotion
1 applic topical BID Qty: 225 0RF
polyethylene glycol 3350 17 gram Powder In Packet
17 g PO DAILY Qty: 0 0RF
docusate sodium 100 mg Capsule
100 mg PO BID Qty: 0 0RF
aspirin 81 mg Tablet,Chewable
81 mg PO DAILY Qty: 0 0RF
metoprolol tartrate 25 mg Tablet
25 mg PO BID Qty: 0 0RF
acetaminophen 325 mg Tablet
325 mg FEEDING TUBE ONCE PRN (Reason: pain and fever)
Theragran Tablet
1 tab FEEDING TUBE DAILY
Activity Restrictions/Additional Instructions:
You were seen in the emergency department for a dislodged NG tube
Your tube was replaced without issue.
Please follow-up closely with your primary care physician.
Return to the emergency department for any worsening of your symptoms, or any development of chest pain, difficulty breathing, abdominal pain with persistent vomiting and inability to tolerate food or liquid by mouth (concern for dehydration),
weakness, headache or confusion, fever greater than 100.4, or any additional symptoms that are concerning to you.
Thank you for choosing [facility].
Interventions
Interventions:
*Risk Screen - Suicide Last Done: 09/24/24 19:47
*General Assessment Last Done: 09/24/24 19:47
*Neglect/Abuse Screening Last Done: 09/24/24 19:47
*ED- Fall Risk Assessment Last Done: 09/24/24 19:47
MH-Yzyssx-Iasfewthtd Assessment Last Done: 09/24/24 20:26
ED-Female Genitourinary Assessment Last Done: 09/24/24 20:26
Discharge Date and Time
Print Language: ANGOLAN
[2024-09-24 20:30] VITALS: BP 138/78
[2024-09-24 21:00] VITALS: BP 133/85
[2024-09-24 21:01] VITALS: BP 133/85
[2024-09-24 22:00] VITALS: BP 123/76
== END 2024-09-24 22:57 ==
LOC: EMR 19:41
PROVIDERS: EMERGENCY PHYSICIAN Student in an Organized Health Care Education/Training Program; FAMILY PHYSICIAN Family Medicine
DX: Z46.59 Encounter for fitting and adjustment of other gastrointestinal appliance and device (principal); I48.91 Unspecified atrial fibrillation; I10 Essential (primary) hypertension; I69.354 Hemiplegia and hemiparesis following cerebral infarction affecting left non-dominant side; I69.320 Aphasia following cerebral infarction; Z96.642 Presence of left artificial hip joint
CPT/HCPCS: 99283; 74018; 74022

== ENCOUNTER 2024-09-28 13:10 | Day surgery (SDC) | payer MEDICARE, SELFPAY ==
[2024-09-28] VITALS (10 sets, daily range): BP systolic 12–131; BP diastolic 67–103; BMI 23.6
--- NOTE | 2024-09-28 09:08 | ED.GENMED ---
History of Present Illness
General
Chief Complaint: Abdominal Symptoms
[facility])
Exam Limitations: none
Time Seen by Provider: 09/28/24 08:58
History of Present Illness
History of Present Illness:
83-year-old female with history of Afib, HTN, HLD, recent CVA and dysphagia presents with NG tube intact from [facility] to have a gastric tube placed. She states she is to have the NGT removed and a 'tube in my stomach.'
Spoke with STACIE Phillips who will do the procedure, states no need to admit.
Past History
Past History
ED Past Medical History: Arrthythmia (Atrial fibrillation), CVA (residual dysphagia) and HTN
ED Past Surgical History: Orthopedic (Left hip fracture repair September 17, 2024)
Social History
Tobacco: Non-smoker
Alcohol: None
Personal:
Living: other (Currently inpatient at [facility])
Family History
Family History: Other (Noncontributory)
Review of Systems
Review of Systems
Allergies reviewed?: Yes
All Other Systems: ROS reviewed and negative except as documented in HPI and ROS
Constitutional: Denies fever
EENT: Reports other (NGT intact)
Respiratory: Denies trouble breathing
Cardiac: Denies chest pain
ABD/GI: Denies abdominal pain, nausea, vomiting or diarrhea
Musculoskeletal: Denies edema
Skin: Reports other (Abdominal wall ecchymosis from injections)
Neurological: Reports weakness (left hemiparesis)
Phy Exam
Physical Exam
Physical Exam:
GENERAL: No acute distress. A&Ox3.
CONSTITUTIONAL: Afebrile.
EYES: clear, conjunctivae normal
ENMT: moist mucus membranes, Pharynx nl
RESPIRATORY: Regular respirations, nonlabored, lungs clear.
CARDIOVASCULAR: Afib rate controlled. No murmurs, no rubs.
GI: NGT intact left nasal passage. Abd. soft, nontender, normal BS
MUSCULOSKELETAL: Moves with ease. Well perfused.
SKIN: Warm, dry, pink, ecchymosis abdomen from Heparin injections
PSYCH: Normal mood and affect. Well kept, interactive and appropriate
NEUROLOGIC: Awake, alert and oriented. No focal neurological deficits
Course
Orders/Labs/Results
Orders:
Orders
09/28/24 12:24
CeFAZolin 2 GRAM [Ancef] 2 grams in 10 ml IV PRE PROCEDURE
09/28/24 12:29
Lidocaine HCl/Pf [Xylocaine-Mpf 1% Vial] 50 mg .ROUTE .STK-MED ONE
ePHEDrine SULFATE [Emerphed] 50 mg .ROUTE .STK-MED ONE
09/28/24 12:30
Phenylephrine HCl/0.9% NaCl [Jose M-Synephrine] 1,000 mcg .ROUTE .STK-MED ONE
Propofol [Diprivan] 40 ml .ROUTE .STK-MED
Vital Signs
Initial and Last Documented VS:
Initial Vital Signs
Temp Pulse Resp BP Pulse Ox
98.4 F 107 16 100/67 97
09/28/24 07:53 09/28/24 07:53 09/28/24 07:53 09/28/24 07:53 09/28/24 07:53
Last Documented Vital Signs
Temp Pulse Resp BP Pulse Ox
97.8 F 102 17 129/78 98
09/28/24 13:52 09/28/24 13:45 09/28/24 13:45 09/28/24 13:45 09/28/24 13:45
MDM/Problems Addressed
MDM/Problems Addressed:
83-year-old female with history of Afib, HTN, HLD, recent CVA and dysphagia [facility]. She states she is to have the NGT removed and a 'tube in my stomach.'
Spoke with Dr. Velarde GI who will do the procedure, states no need to admit.
NAD, pleasant
10:00 a.m.
GI RADIO COMMUNICATION COORDINATOR in, patient awaiting procedure by GI
12:30 PM:
Patient transported to GI lab where she will be discharged back to [facility].
*Critical Care Note
Total Time (30-74mins, 75-104mins- exclusive of procedures): Not Applicable
ED Attending Note
-
Portions of this chart may have been created with voice recognition software.� Occasional wrong word or��sound alike� substitutions may have occurred due to the inherent limitations of voice recognition software.
Discharge Plan
Departure
Patient Disposition: GI LAB
Date of Disposition: 09/28/24
Time of Disposition: 12:30
Admit to: GI lab
Presentation/result/management discussed w/ accepting MD/DO: Dr. Velarde
Condition: Good
Discharge Problem:
encounter for G tube placement
Interventions
Interventions:
*Risk Screen - Suicide Last Done: 09/28/24 07:53
*General Assessment Last Done: 09/28/24 08:55
*Neglect/Abuse Screening Last Done: 09/28/24 07:53
*ED COVID-19 Vaccine History Last Done: 09/28/24 08:55
*Nursing Disposition Last Done: 09/28/24 12:36
KR-Srjpco-Nbttmgjays Assessment Last Done: 09/28/24 08:55
Discharge Date and Time
Discharge Date/Time: 09/28/24 12:37
== END 2024-09-28 13:26 | disposition home or self-care (01) ==
LOC: GI 13:10
PROVIDERS: ATTENDING PHYSICIAN Internal Medicine Gastroenterology; EMERGENCY PHYSICIAN Student in an Organized Health Care Education/Training Program; FAMILY PHYSICIAN Family Medicine
DX: R13.10 Dysphagia, unspecified (principal); R63.39 Other feeding difficulties; Z43.1 Encounter for attention to gastrostomy; R62.7 Adult failure to thrive
CPT/HCPCS: 43246; 99284

== ENCOUNTER 2024-10-10 12:32 | Inpatient (IN) | payer MEDICARE, SELFPAY ==
[2024-10-10] VITALS (17 sets, daily range): BP systolic 72–150; BP diastolic 52–90; PULSE 109–151; BMI 21.2; BMI 21.5
[2024-10-10 08:18] LABS: Glucose - Point of Care 147 mg/dl (70-99)
--- NOTE | 2024-10-10 08:25 | EDRN ---
Call to JALYN to get report- staff unable to ' come down'
--- NOTE | 2024-10-10 08:32 | ED.GENMED ---
History of Present Illness
General
Chief Complaint: Change in Mental Status
Source: [facility] and pen[facility]entiary
Exam Limitations: none
Time Seen by Provider: 10/10/24 08:13
History of Present Illness
History of Present Illness:
83yoF with a history of atrial fibrillation on Eliquis, recent R MCA stroke with residual L sided weakness and PEG tube, hypertension, and hyperlipidemia presenting from [facility] for evaluation after an episode of unresponsiveness. Patient was
sitting in a chair and working with occupational medicine. Patient remembers not feeling well but does not recall anything else. Staff at [facility] reports that she was staring blankly ahead and that her tongue protruded out. She was not
responding to verbal stimuli and staff had to assist her to her bed. Episode lasted about 3 minutes before resolving. There was no loss of consciousness. A rapid response was called and symptoms resolved prior to ED nurse arrival. She is feeling
normal currently. She denies any headache, dizziness, visual changes, paresthesias, chest pain, shortness of breath, palpitations. Of note, patient tested positive for COVID 2 days ago.
Patient was recently hospitalized from 09/17/24-09/20/24 after presenting for a fall. She was diagnosed with a R MCA stroke. New onset afib was noted and she was initiated on Eliquis. She was also found to have a L hip fracture which was repaired.
She
Past History
Past History
ED Past Medical History: Arrthythmia (Atrial fibrillation), CVA (residual dysphagia) and HTN
ED Past Surgical History: Orthopedic (Left hip fracture repair September 17, 2024)
Social History
Tobacco: Non-smoker
Alcohol: None
Personal:
Living: other (Currently inpatient at [facility])
Family History
Family History: Other (Noncontributory)
Phy Exam
General Physical Exam
General Presentation: well appearing and no apparent distress
General Skin: warm and dry
General Habitus: normal
General Mental: alert
General Hydration: dry mucous membranes
Eye Exam
Eye Exam: PERRL and EOMI
Cardiovascular Exam
Cardiovascular Exam: normal peripheral pulses (2+ DP pulses bilaterally) and irregularly irregular
Pulmonary Exam
Pulmonary Exam: lungs clear, no respiratory distress, no rales, no crackles, no rhonchi and no wheezing
Gastrointestinal Exam
Gastrointestinal Exam: other (G tube in place)
Neurological Exam
Neurological Exam: alert, CN II-XII intact and other (Negative drift in upper extremities. Weakness noted in L hip flexion which patient states is baseline due to recent stroke/hip fracture. )
[place] Coma Scale
Eye Opening: Spontaneous
Verbal Response: Oriented
Motor Response: Obeys Commands
GCS Total Score: 15
Skin Exam
Skin Exam: normal color and warm/dry
Psychiatric Exam
Psychiatric Exam: normal mood/affect
Course
Orders/Labs/Results
Orders:
Orders
10/10/24 08:24
Electrocardiogram (*1) Urgent
Reason for Study: Other
Other Reason for Exam: unresponsive
10/10/24 08:25
EKG- Treatment ONCE
10/10/24 08:28
Cardiac Monitoring- Treatment ONCE
0.9% Sodium Chloride 500 ml [Nss] 500 ml IV BOLUS
10/10/24 08:29
CT Head W/o Iv Contrast Urgent
Comment:
Reason For Exam: possible seizure
10/10/24 08:35
CMP [Comprehensive Metabolic Panel] Urgent
Complete Blood Count/With Diff Urgent
Troponin I Urgent
10/10/24 10:04
0.9% Sodium Chloride 500 ml [Nss] 500 ml IV BOLUS
10/10/24 10:10
NEUROLOGY CONSULT Routine
Consulting Provider: Amber Dong
Was physician already notified: Yes
10/10/24 10:33
EEG Routine Routine
Reason for Exam: spell
Abnormal Lab Results
10/10/24 10/10/24
08:16 08:35
WBC 3.9 L 10^3/uL
(4.8-10.8)
RBC 3.18 L 10^6/uL
(4.20-5.40)
Hgb 9.9 L g/dL
(12.0-16.0)
Hct 30.3 L %
(37.0-47.0)
MCH 31.1 H pg
(27.0-31.0)
MCHC 32.7 L g/dL
(33.0-37.0)
RDW 16.5 H %
(11.5-14.5)
MPV 10.8 H fL
(7.4-10.4)
Absolute Lymphs (auto) 1.0 L 10^3/uL
(1.2-3.4)
Immature Gran % 0.8 H %
(0-0.5)
Monocytes % 15.7 H %
(1.7-9.3)
BUN 34 H mg/dl
(7-17)
Creatinine 1.1 H mg/dL
(0.6-1.0)
Glucose 126 H mg/dl
(70-99)
AST 44 H U/L
(14-36)
Troponin I 0.044 H* ng/ml
POC Glucose 147 H mg/dl
(70-99)
10/10/24 08:35
10/10/24 08:35
Vital Signs
Initial and Last Documented VS:
Initial Vital Signs
BP
112/71
10/10/24 08:16
Last Documented Vital Signs
Temp Pulse Resp BP Pulse Ox
97.7 F 92 18 92/73 97
10/10/24 08:22 10/10/24 09:23 10/10/24 09:23 10/10/24 09:00 10/10/24 09:23
MDM/Problems Addressed
Differential Diagnosis Includes:
83yoF presenting from her rehab after an episode of unresponsiveness. Episode described as a blank stare and tongue protruding out. Lasted 3 minutes. Patient now asymptomatic. Recently hospitalized for a stroke. Tested positive for COVID 2 days ago.
HR 104 on arrival. Remainder of vitals are stable. Atrial fibrillation noted on monitor which she has a history of. Differential diagnosis includes but is not limited to: partial seizure, syncope, arrhythmia
Initial ED plan: Fingerstick glucose 147. Check cardiac labs, EKG, and CT head.
*EKG
Interpreted by ED Provider?: Yes
EKG Intrepretation Date: 10/10/24
Heart Rate: 99
Rate: normal
Rhythm: a-fib
[place]: left axis deviation
Interval: normal interval
Ischemia: no ischemia
*Critical Care Note
Total Time (30-74mins, 75-104mins- exclusive of procedures): Not Applicable
Update Note
Update Note:
Troponin mildly elevated at 0.044. No ischemic changes noted on EKG. Renal function at baseline. CT head negative for acute findings. Unclear etiology of symptoms, ?partial seizure. Blood pressure did transiently drop to 92/73 and additional
fluid bolus was ordered. Neurology consulted and patient for further evaluation.
ED Attending Note
-
Portions of this chart may have been created with voice recognition software.� Occasional wrong word or��sound alike� substitutions may have occurred due to the inherent limitations of voice recognition software.
Discharge Plan
Departure
Patient Disposition: Admit
Date of Disposition: 10/10/24
Time of Disposition: 09:44
Presentation/result/management discussed w/ accepting MD/DO: Hospitalist
Discharge Problem:
Episode of unresponsiveness, Elevated troponin
Prescriptions:
No Action
triamcinolone acetonide 0.1 % Cream
1 applic TOPICAL BIDPRN PRN (Reason: right ankle and left elbow)
mirtazapine 30 mg Tablet
30 mg PO HS
nystatin [Mycostatin] 100,000 unit/mL Suspension
5 ml PO QID
famotidine [Pepcid] 20 mg Tablet
20 mg feeding tube DAILY
bupropion HCl [Wellbutrin] 75 mg Tablet
75 mg PO BID
alum-mag hydroxide-simeth [Maalox] 200-200-20 mg/5 mL Suspension
30 ml feeding tube QIDPRN PRN (Reason: gerd)
cholecalciferol (vitamin D3) [Vitamin D3] 50 mcg (2,000 unit) Tablet
50 mcg PO DAILY
acetaminophen 325 mg/10.15 mL Solution
650 mg feeding tube Q6HPRN PRN (Reason: mild pain)
Centrum 9 mg iron/ 15 mL (15 mL) Liquid
15 ml feeding tube DAILY
Eliquis 2.5 mg Tablet
2.5 mg PO BID
tramadol 25 mg Tablet
25 mg feeding tube Q4HPRN PRN (Reason: moderate pain)
atorvastatin 20 mg tablet
20 mg feeding tube QPM
aspirin 81 mg tablet,chewable
81 mg feeding tube DAILY
metoprolol tartrate 25 mg tablet
12.5 mg feeding tube BID
Referrals:
Namita Naqvi MD [Family Provider] -
Interventions
Interventions:
*Risk Screen - Suicide Last Done: 10/10/24 08:53
*Neglect/Abuse Screening Last Done: 10/10/24 08:53
*ED- Fall Risk Assessment Last Done: 10/10/24 08:52
*ED COVID-19 Vaccine History Last Done: 10/10/24 08:52
ED- Pulmonary Assessment Last Done: 10/10/24 08:53
ED- Neurological Assessment Last Done: 10/10/24 08:53
ED- Cardiac Assessment Last Done: 10/10/24 08:53
ED Swallowing Screen Last Done: 10/10/24 08:58
Discharge Date and Time
Print Language: MOLDOVAN
[2024-10-10 08:43] LABS: % Eosinophils 0.8 % (0-6); % Immature Granulocytes 0.8 % (0-0.5); % Lymphocytes 25.3 % (20.5-51.1); % Monocytes 15.7 % (1.7-9.3); % Neutrophils 56.4 % (42.2-75.2); Absolute Monocytes 0.6 10^3/uL (0.1-0.6); Absolute Neutrophils 2.2 10^3/uL (1.4-6.5); Hematocrit 30.3 % (37.0-47.0); Hemoglobin 9.9 g/dL (12.0-16.0); Mean Corp Hgb Conc. 32.7 g/dL (33.0-37.0); Mean Corpuscular Hgb 31.1 pg (27.0-31.0); Mean Corpuscular Volume 95.3 fL (81.0-99.0); Mean Platelet Volume 10.8 fL (7.4-10.4); Nucleated Red Blood Cells % 0 %; Platelet Count 223 10^3/uL (130-400); Red Blood Cell Count 3.18 10^6/uL (4.20-5.40); Red Cell Dist. Width 16.5 % (11.5-14.5); White Blood Cell Count 3.9 10^3/uL (4.8-10.8)
[2024-10-10 09:15] LABS: ALT (SGPT) 24 U/L (0-35); AST (SGOT) 44 U/L (14-36); Alkaline Phosphatase 109 U/L (38-126); Blood Urea Nitrogen 34 mg/dl (7-17); Calcium 9.1 mg/dl (8.4-10.2); Carbon Dioxide 25 mmol/L (22-30); Chloride 103 mmol/L (98-107); Estimated Creatinine Clearance 36 ml/min; Glucose 126 mg/dl (70-99); Potassium 4.6 mmol/L (3.5-5.1); Sodium 139 mmol/L (135-145); Total Bilirubin 0.6 mg/dl (0.2-1.3); Total Protein 6.8 g/dl (6.3-8.2); eGFR 49.86
[2024-10-10 09:21] LABS: Troponin I 0.044 ng/ml
[2024-10-10] MEDS: NSS 500 IV ×2 (09:22→10:24)
--- NOTE | 2024-10-10 10:16 | CON.NEURO ---
Consultation
Order
Date of Consultation: 10/10/24
Requesting Provider: Shakira Cai PA-C
Reason for Consult: Seizure
Neurology Consultation Note.
HPI: This is an 83-year-old woman who presented to [facility] on 10/10/2024 with a spell. According to the patient she felt 'lightheaded' while working with OT earlier today.
According to EMR the patient was witnessed to have staring episodes lasting for around 3 minutes. As far he recalls rapid response team arriving to assess her and states that her cognition was not affected at that time.
ER VS: 92/73, 95, afebrile
Labs: Glucose�126, normal sodium, troponin�0.044 hemoglobin�9.9, WBCs�3.9, SARS-CoV-2�positive (10/08/2024)
EKG: A-fib
PDMP: none
CT head�evolving subacute right MCA territory infarct.
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
PSH: bilateral cataract surgery
SH: , non-smoker, mother of 6
FH: Not contributory to current presentation
All: Sulfamethoxazole, Trimethoprim
ROS: Positive for left-sided weakness, dysarthria, encephalopathy
General: Well developed. In no acute distress.
Cardio: irregular rate and rhythm. Extremities are without cyanosis or edema.
Neuro:
Mental awake, oriented to name, month, year, date was close. Follows simple requests consistently. Nonfluent.
Cranial Nerves: Pupils are equally round, surgical. EOMs full. Visual parmar full mild left facial weakness. No dysarthria.
Motor: Left arm drift to the bed in less than 10 seconds, left leg drift to the bed in less than 5 seconds. Right arm/leg�antigravity simultaneously purposefully.
Coordination: Weakness related dysmetria on the left
Gait: deferred
Assessment and Plan:
I. Presyncope versus complex partial seizure
II. SARS-CoV-2 infection
III. Subacute R MCA territory stroke, R M2 occlusion.
IV. PA A-Fib.
V. Multifactorial encephalopathy (vascular, infectious)
-Continue Telemetry monitoring
-Continue Eliquis 2.5 mg twice daily. No indication for aspirin from neurology perspective.
-Will consider EEG if recurrent episodes
-DVT prophylaxis.
-Case was discussed with patient's daughters.
-Rest recall neurology services any questions or concerns
I personally reviewed all radiology and labs along with past medical records pertinent to current medical problems. Total time spent in patient care is 60 minutes.
Thank you for allowing us to participate in the care of this patient. We will continue to follow. Please do not hesitate to contact us with any questions or concerns.
Subjective/Objective
Subjective Data
Date of Service: October 10, 2024
Objective Data
Vital Signs
Temp Pulse Resp BP Pulse Ox
36.5 C 92 18 92/73 97
10/10/24 08:22 10/10/24 09:23 10/10/24 09:23 10/10/24 09:00 10/10/24 09:23
Lab Results
10/10/24 08:35
10/10/24 08:35
Sodium 139 mmol/L (135-145) 10/10/24 08:35
Potassium 4.6 mmol/L (3.5-5.1) 10/10/24 08:35
BUN 34 mg/dl (7-17) H 10/10/24 08:35
Glucose 126 mg/dl (70-99) H 10/10/24 08:35
Calcium 9.1 mg/dl (8.4-10.2) 10/10/24 08:35
Patient Allergies
Sulfa (Sulfonamide Antibiotics) Allergy (Verified 09/28/24 07:54)
Rash
Medications
-
Active Medications
Generic Name Dose Route Start Last Admin
Trade Name Freq PRN Reason Stop Dose Admin
Sodium Chloride 500 mls @ 500 mls/hr 10/10/24 10:04
Nss IV 10/10/24 11:03
BOLUS ONE
Home Medications
�Medication �Instructions �Recorded
mirtazapine 30 mg tablet 30 mg PO HS Mental Health/Anxiety 08/16/23
triamcinolone acetonide 0.1 % 1 applic topical BIDPRN PRN right 08/16/23
topical cream ankle and left elbow
acetaminophen 325 mg/10.15 mL oral 650 mg feeding tube Q6HPRN PRN 10/10/24
solution mild pain
aluminum-mag hydroxide-simethicone 30 ml feeding tube QIDPRN PRN gerd 10/10/24
200 mg-200 mg-20 mg/5 mL oral susp
apixaban 2.5 mg tablet (Eliquis) 2.5 mg PO BID Blood Clot 10/10/24
Prevention/Tx
aspirin 81 mg chewable tablet 81 mg feeding tube DAILY Blood 10/10/24
Clot Prevention/Tx
atorvastatin 20 mg tablet 20 mg feeding tube QPM High 10/10/24
Cholesterol
bupropion HCl 75 mg tablet 75 mg PO BID Mental Health 10/10/24
cholecalciferol (vitamin D3) 50 50 mcg PO DAILY Supplement 10/10/24
mcg (2,000 unit) tablet (Vitamin
D3)
famotidine 20 mg tablet (Pepcid) 20 mg feeding tube DAILY 10/10/24
Gastrointestinal Issue
metoprolol tartrate 25 mg tablet 12.5 mg feeding tube BID Blood 10/10/24
Pressure
rovlybde-xuaf-sasyrxy gluconate 9 15 ml feeding tube DAILY Supplement 10/10/24
mg iron/15 mL (15 mL) oral liquid
(Centrum)
nystatin 100,000 unit/mL oral 5 ml PO QID thrush 10/10/24
suspension
tramadol 25 mg tablet 25 mg feeding tube Q4HPRN PRN 10/10/24
moderate pain
Vital Signs and Labs
-
Vital Signs and Labs:
Vital Signs
Temp Pulse Resp BP Pulse Ox
36.5 C 92 18 92/73 97
10/10/24 08:22 10/10/24 09:23 10/10/24 09:23 10/10/24 09:00 10/10/24 09:23
Lab Results
10/10/24 08:35
10/10/24 08:35
Sodium 139 mmol/L (135-145) 10/10/24 08:35
Potassium 4.6 mmol/L (3.5-5.1) 10/10/24 08:35
BUN 34 mg/dl (7-17) H 10/10/24 08:35
Glucose 126 mg/dl (70-99) H 10/10/24 08:35
Calcium 9.1 mg/dl (8.4-10.2) 10/10/24 08:35
Medications
-
Medications:
Generic Name Dose Route Start Last Admin
Trade Name Freq PRN Reason Stop Dose Admin
Sodium Chloride 500 mls @ 500 mls/hr 10/10/24 10:04
Nss IV 10/10/24 11:03
BOLUS ONE
Home Medications
-
Home Medications
mirtazapine 30 mg tablet 30 mg PO HS Mental Health/Anxiety 08/16/23
triamcinolone acetonide 0.1 % topical cream 1 applic topical BIDPRN PRN right ankle and left elbow 08/16/23
acetaminophen 325 mg/10.15 mL oral solution 650 mg feeding tube Q6HPRN PRN mild pain 10/10/24
aluminum-mag hydroxide-simethicone 200 mg-200 mg-20 mg/5 mL oral susp 30 ml feeding tube QIDPRN PRN gerd 10/10/24
apixaban 2.5 mg tablet (Eliquis) 2.5 mg PO BID Blood Clot Prevention/Tx 10/10/24
aspirin 81 mg chewable tablet 81 mg feeding tube DAILY Blood Clot Prevention/Tx 10/10/24
atorvastatin 20 mg tablet 20 mg feeding tube QPM High Cholesterol 10/10/24
bupropion HCl 75 mg tablet 75 mg PO BID Mental Health 10/10/24
cholecalciferol (vitamin D3) 50 mcg (2,000 unit) tablet (Vitamin D3) 50 mcg PO DAILY Supplement 10/10/24
famotidine 20 mg tablet (Pepcid) 20 mg feeding tube DAILY Gastrointestinal Issue 10/10/24
metoprolol tartrate 25 mg tablet 12.5 mg feeding tube BID Blood Pressure 10/10/24
hqrxdjbw-wvgj-zkgdfec gluconate 9 mg iron/15 mL (15 mL) oral liquid (Centrum) 15 ml feeding tube DAILY Supplement 10/10/24
nystatin 100,000 unit/mL oral suspension 5 ml PO QID thrush 10/10/24
tramadol 25 mg tablet 25 mg feeding tube Q4HPRN PRN moderate pain 10/10/24
--- NOTE | 2024-10-10 10:28 | EDRN ---
Pt had a urine culture done recently at [facility], it is resulted as positive for strep. Provider notified via TT
--- NOTE | 2024-10-10 12:15 | HPS.HSE ---
Family Physician
-
Family Physician: Namita Naqvi
Chief Complaint
-
Episode of unresponsiveness/staring
History of Present Illness
Patient is a 83 years old female with subacute right hemisphere MCA territory infarct presumed to be embolic with neurologic sequela including dysphagia with aspiration, left-sided weakness. Patient was transferred to the emergency room from acute
rehab after episode of unresponsiveness. Rehab staff reported episode of staring for about 3 minutes and it was self-limited. There was no evidence of tonic-clonic activity. Patient herself recall being generally weak and lightheaded prior to
this episode. She was diagnosed with COVID 2 days prior to this. At the assessment patient was noted to be relatively hypotensive with systolic blood pressure in the low 90s
Patient was transferred to the emergency room. Upon arrival to the emergency room patient is hemodynamically stable, afebrile, nontoxic-appearing with mental status back to baseline and otherwise no new neurologic findings.
Medical History
Past Medical History
Past Medical History: Reports Arrhythmia (A-fib) and CVA
Past Surgical History: Reports Other (PEG tube placement)
Social History
Tobacco: Non-smoker
Drug: None
Living: With Family
Family History
Family History: Not pertinent
Allergies / Home Medications
Allergies reflects when Allergies were last updated in [facility].
Home Medications with original date entered in [facility]
Allergy/Medication List:
Allergies
Allergy/AdvReac Type Severity Reaction Status Date / Time
Sulfa (Sulfonamide Allergy Rash Verified 09/28/24 07:54
Antibiotics)
Home Medications
mirtazapine 30 mg tablet 30 mg PO HS Mental Health/Anxiety 08/16/23
triamcinolone acetonide 0.1 % topical cream 1 applic topical BIDPRN PRN right ankle and left elbow 08/16/23
acetaminophen 325 mg/10.15 mL oral solution 650 mg feeding tube Q6HPRN PRN mild pain 10/10/24
aluminum-mag hydroxide-simethicone 200 mg-200 mg-20 mg/5 mL oral susp 30 ml feeding tube QIDPRN PRN gerd 10/10/24
apixaban 2.5 mg tablet (Eliquis) 2.5 mg PO BID Blood Clot Prevention/Tx 10/10/24
aspirin 81 mg chewable tablet 81 mg feeding tube DAILY Blood Clot Prevention/Tx 10/10/24
atorvastatin 20 mg tablet 20 mg feeding tube QPM High Cholesterol 10/10/24
bupropion HCl 75 mg tablet 75 mg PO BID Mental Health 10/10/24
cholecalciferol (vitamin D3) 50 mcg (2,000 unit) tablet (Vitamin D3) 50 mcg PO DAILY Supplement 10/10/24
famotidine 20 mg tablet (Pepcid) 20 mg feeding tube DAILY Gastrointestinal Issue 10/10/24
metoprolol tartrate 25 mg tablet 12.5 mg feeding tube BID Blood Pressure 10/10/24
vekivzsi-ojbf-icqdxei gluconate 9 mg iron/15 mL (15 mL) oral liquid (Centrum) 15 ml feeding tube DAILY Supplement 10/10/24
nystatin 100,000 unit/mL oral suspension 5 ml PO QID thrush 10/10/24
tramadol 25 mg tablet 25 mg feeding tube Q4HPRN PRN moderate pain 10/10/24
Review of Systems
-
A 12 point ROS was completed and negative except as noted: Yes
Physical Exam
Vital Signs
Vital Signs
Temp Pulse Resp BP Pulse Ox
97.7 F 111 30 123/73 97
10/10/24 08:22 10/10/24 12:00 10/10/24 12:00 10/10/24 12:00 10/10/24 12:00
Physical Exam
General: Well Developed, Well Nourished and No Apparent Distress
HEENT: NormoCephalic, Moist mucous membranes and Atraumatic
Respiratory: Clear
Cardiac: S1/S2 and Regular Rhythm; No Murmur or Rub
GI: Soft, Non Tender, Non Distended and Normal Bowel Sounds; No Organomegaly
Rectal: Deferred by Provider
Musculoskeletal: No Clubbing, No Cyanosis and No Edema
Skin: No Rash
Neuro: Awake, Alert, Oriented, AO x 3, Cranial Nerves Intact and Other (Left upper and lower extremity drift 5-10 seconds)
Laboratory Results
-
10/10/24 08:35
10/10/24 08:35
Laboratory Results
Total Bilirubin 0.6 mg/dl (0.2-1.3) 10/10/24 08:35
AST 44 U/L (14-36) H 10/10/24 08:35
ALT 24 U/L (0-35) 10/10/24 08:35
Alkaline Phosphatase 109 U/L (38-126) 10/10/24 08:35
Troponin I 0.044 ng/ml H* 10/10/24 08:35
Impression/Plan
-
IMPRESSION:
Presentation with episode of unresponsiveness/staring
� Differential diagnosis: Presyncope, versus partial complex seizure possibly provoked by relative hypotension
NATHALIE, mild
Mild hypotension secondary to dehydration responded to IV fluid bolus
COVID-19 infection
Other conditions:
Subacute right MCA territory stroke with right M2 occlusion
Dysphagia with aspiration risk requiring PEG tube placement on 09/28.
Paroxysmal atrial fibrillation
Anticoagulation with Eliquis.
Dyslipidemia
Status post left femoral into secondary fracture and open reduction term fixation on 10/04/2024.
Incidental thyroid nodules noted on CTA involving the left Heema thyroid requiring outpatient follow-up.
Anxiety/depression
PLAN:
Episode of unresponsiveness/staring, self-limited for about 3 minutes.
� Differential diagnosis: Presyncope in the settings of dehydration, versus partial complex seizure possibly provoked by relative hypotension.
CT scan of the head confirming evolving right MCA territory infarct with no acute abnormalities.
EEG
Neurologic monitoring
Neurology consultation
At this point no clear indication for antiepileptic medications
Continue seizure precautions
Orthostatic vitals
Treat dehydration and hypotension
Discontinue tramadol with potential effect of low seizure threshold
NATHALIE suspected secondary to dehydration.
Continue gentle hydration
Follow BMP.
Check for orthostasis
COVID-19 infection
Febrile on 10/09 at acute rehab
Currently asymptomatic and reports no respiratory symptoms
Check chest x-ray
Will hold on antiviral therapy at this point monitoring closely. Would not start Paxlovid given potential interruption with statin therapy in the settings of subacute CVA
Paroxysmal atrial fibrillation
Rate controlled with metoprolol at 12.5 mg twice daily.
Continue anticoagulation with Eliquis
Dysphagia
PEG tube in place since 09/28/2024
Resume speech and swallow evaluation
Nutrition consult for PEG tube formal recommendation
Full code
DVT prophylaxis/
[2024-10-10] MEDS: NSS 1000 IV (16:21)
[2024-10-10] MEDS: LIPITOR 20 MG TUBE (17:35)
[2024-10-10] MEDS: TYLENOL ORAL SOLUTION 650 MG TUBE (17:36)
[2024-10-10] MEDS: MYCOSTATIN ORAL SUSPENSION 5 ML PO ×2 (17:36→23:36)
[2024-10-10] MEDS: WELLBUTRIN REGULAR RELEASE 75 MG TUBE (20:33)
[2024-10-10] MEDS: ELIQUIS 2.5 MG TUBE (20:33)
[2024-10-10] MEDS: LOPRESSOR 12.5 MG TUBE (20:34)
[2024-10-10] MEDS: REMERON 30 MG TUBE (23:36)
[2024-10-11] VITALS (8 sets, daily range): BP systolic 99–147; BP diastolic 60–89; PULSE 92–115; O2SAT 98; BMI 21.5
[2024-10-11] MEDS: WELLBUTRIN REGULAR RELEASE 75 MG TUBE ×2 (07:45→21:11)
[2024-10-11] MEDS: LOPRESSOR 12.5 MG TUBE ×2 (07:45→21:11)
[2024-10-11] MEDS: ELIQUIS 2.5 MG TUBE ×2 (07:45→21:11)
[2024-10-11] MEDS: PEPCID 20 MG TUBE (07:45)
[2024-10-11] MEDS: VITAMIN D3 (cholecalciferol) 50 MCG TUBE (07:45)
[2024-10-11] MEDS: LOW STRENGTH ASPIRIN 81 MG TUBE (07:45)
[2024-10-11] MEDS: DAILY VITAMIN/CENTRUM 15 ML TUBE (07:46)
[2024-10-11] MEDS: MYCOSTATIN ORAL SUSPENSION 5 ML PO ×4 (07:46→21:14)
[2024-10-11] MEDS: TYLENOL ORAL SOLUTION 650 MG TUBE ×2 (08:30→17:06)
--- NOTE | 2024-10-11 09:15 | PTOTSP ---
Speech Language Pathology
Pt seen for cognitive-linguistic and speech evaluations. Mild dysarthria noted. Pt with mild cognitive-linguistic deficits.
Pt also seen for clinical bedside swallow evaluation. Known to TAIL END RIDER from recent admission with CVA and VSE completed 09/21/24 from [facility] with recommendations for NPO. PEG placed 09/28/24. P.O. trials of ice chips and thin liquids via tsp/single cup
sip provided. Adequate oral phase noted with limited trials. No overt signs of aspiration, but pt was a silent aspirator on last VSE.
Recommend:
(1) NPO
(2) Oral care 4x/day with suctioning as needed
(3) Meds via PEG
(4) Allow ice chips and tsps of thin water sparingly post oral care given supervision per Aspiration Risk Hydration Protocol (ARHP)
(5) VSE 10/12 to see if diet upgrade possible
(6) TAIL END RIDER to continue to follow
[2024-10-11 09:54] LABS: % Basophils 1.2 % (0-2); % Eosinophils 3.1 % (0-6); % Immature Granulocytes 0.4 % (0-0.5); % Lymphocytes 31.9 % (20.5-51.1); % Monocytes 12.7 % (1.7-9.3); % Neutrophils 50.7 % (42.2-75.2); Absolute Eosinophils 0.1 10^3/uL (0-0.7); Absolute Lymphocytes 0.8 10^3/uL (1.2-3.4); Absolute Monocytes 0.3 10^3/uL (0.1-0.6); Absolute Neutrophils 1.3 10^3/uL (1.4-6.5); Hemoglobin 9.3 g/dL (12.0-16.0); Mean Corp Hgb Conc. 33.2 g/dL (33.0-37.0); Mean Corpuscular Hgb 31.3 pg (27.0-31.0); Mean Corpuscular Volume 94.3 fL (81.0-99.0); Mean Platelet Volume 11.2 fL (7.4-10.4); Nucleated Red Blood Cells % 0 %; Platelet Count 197 10^3/uL (130-400); Red Blood Cell Count 2.97 10^6/uL (4.20-5.40); Red Cell Dist. Width 16.3 % (11.5-14.5); White Blood Cell Count 2.6 10^3/uL (4.8-10.8)
[2024-10-11 10:01] LABS: Blood Urea Nitrogen 24 mg/dl (7-17); Calcium 8.9 mg/dl (8.4-10.2); Carbon Dioxide 23 mmol/L (22-30); Chloride 109 mmol/L (98-107); Estimated Creatinine Clearance 43 ml/min; Glucose 109 mg/dl (70-99); Potassium 4.1 mmol/L (3.5-5.1); Sodium 139 mmol/L (135-145); eGFR > 60.00
--- NOTE | 2024-10-11 13:00 | PTCARENOTE ---
TF initiated per MD order, Jevity 1.5 with initial rate of 20ml/hr and 25 ml/hr flush; this RN communicated with MD, stated to advance TF q8hr until goal rate of 45 ml/hr. Patient NPO with sips and ice chips, TF infusing through L sided PEG tube.
VSE ordered for AM. Patient OOB to chair and BSC with assistx1 and RW, residual L sided weakness from previous CVA and L hip fx, medicated with PRN tylenol for L hip pain - see SEP. Daughter at bedside, patient ringing appropriately.
--- NOTE | 2024-10-11 14:25 | W.PN.HOSP.TC ---
Today's Communication/Plan
-
Complete workup for possible seizure pending EEG
Observe and monitor closely off antiepileptic medications
Avoid hypotension and cerebral hypoperfusion.
Resume tube feeds
Speech and swallow evaluation including VSE
Noted urine culture positive with Streptococcus agalactiae patient asymptomatic, and likely bacteriuria
PT/OT assessment with disposition planning.
Assessment / Plan
Assessment / Plan
IMPRESSION:
Presentation with episode of unresponsiveness/staring
� Differential diagnosis: Presyncope, versus partial complex seizure possibly provoked by relative hypotension
NATHALIE, mild
Mild hypotension secondary to dehydration responded to IV fluid bolus
COVID-19 infection
Other conditions:
Subacute right MCA territory stroke with right M2 occlusion
Dysphagia with aspiration risk requiring PEG tube placement on 09/28.
Paroxysmal atrial fibrillation
Anticoagulation with Eliquis.
Dyslipidemia
Status post left femoral into secondary fracture and open reduction term fixation on 10/04/2024.
Incidental thyroid nodules noted on CTA involving the left Heema thyroid requiring outpatient follow-up.
Anxiety/depression
PLAN:
Episode of unresponsiveness/staring, self-limited for about 3 minutes.
� Differential diagnosis: Presyncope in the settings of dehydration, versus partial complex seizure possibly provoked by relative hypotension.
CT scan of the head confirming evolving right MCA territory infarct with no acute abnormalities.
EEG
Neurologic monitoring
Neurology consultation
At this point no clear indication for antiepileptic medications
Continue seizure precautions
Orthostatic vitals
Treat dehydration and hypotension
Discontinue tramadol with potential effect of low seizure threshold
NATHALIE suspected secondary to dehydration.
Improved with creatinine down from 1.1-0.9.
COVID-19 infection
Febrile on 10/09 at acute rehab
Currently asymptomatic and reports no respiratory symptoms
Check chest x-ray
Will hold on antiviral therapy at this point monitoring closely. Would not start Paxlovid given potential interruption with statin therapy in the settings of subacute CVA
Paroxysmal atrial fibrillation
Rate controlled with metoprolol at 12.5 mg twice daily.
Continue anticoagulation with Eliquis
Dysphagia
PEG tube in place since 09/28/2024
Resume speech and swallow evaluation
Nutrition consult for PEG tube formal recommendation
Full code
DVT prophylaxis/
Anticipated Discharge: 24 - 48 hours
Subjective/Interval History
-
Date of Service: October 11, 2024
Objective Data
-
Labs:
Laboratory Results
10/11/24
09:26
WBC 2.6 L
Hgb 9.3 L
Hct 28.0 L
Plt Count 197
Sodium 139
Potassium 4.1
Chloride 109 H
Carbon Dioxide 23
BUN 24 H
Creatinine 0.9
Glucose 109 H
Calcium 8.9
Vital Signs:
Vital Signs
Temp Pulse Resp BP Pulse Ox
97.8 F 93 18 114/73 98
10/11/24 11:50 10/11/24 11:50 10/11/24 11:50 10/11/24 11:50 10/11/24 11:50
Physical Exam
-
General: Well Developed, Well Nourished and No Apparent Distress
HEENT: Normocephalic, Atraumatic and Moist Mucous Membranes
Respiratory: Clear to Auscultation; Negative Wheezes, Rales or Rhonchi
Cardiac: Regular Rhythm and S1/S2
GI: Soft, Nontender and Nondistended
Genito-urinary: No Costovertebral Tender
Musculoskeletal: No Clubbing, No Cyanosis and No Edema
Skin: Dry
Neuro: Awake, Alert, Oriented and Other (Mild aphasia with left upper/lower extremity drift/left facial droop)
--- NOTE | 2024-10-11 16:42 | CM ---
Patient seen at bedside with daughter Jania
IA completed
Dx: syncope
Patient was at [facility] rehab and sent to ED staring/unresponsive episode
recent CVA, L femur fx ORIF on 10/04, dysphagia w/aspiration PEG placed 09/28, tube feeds
Lives in a 1 story home with daughter and son in law
PLOF: Independent no assistive device
DME: Walker, commode, transport w/c, shower chair
Spoke with Amber from [facility], bed hold
PT rec Acute rehab
Speech and swallow evaluation including VSE tomorrow
PCP: Namita Naqvi
Pharmacy: [address], [place]
PLAN: [facility] when medically ready
[2024-10-11] MEDS: LIPITOR 20 MG TUBE (17:06)
[2024-10-11] MEDS: REMERON 30 MG TUBE (21:14)
[2024-10-12] VITALS (7 sets, daily range): BP systolic 98–151; BP diastolic 58–87; BMI 21.2
[2024-10-12] MEDS: TYLENOL ORAL SOLUTION 650 MG TUBE ×2 (01:17→07:43)
[2024-10-12] MEDS: DAILY VITAMIN/CENTRUM 15 ML TUBE (07:42)
[2024-10-12] MEDS: MYCOSTATIN ORAL SUSPENSION 5 ML PO ×3 (07:42→17:01)
[2024-10-12] MEDS: VITAMIN D3 (cholecalciferol) 50 MCG TUBE (07:42)
[2024-10-12] MEDS: WELLBUTRIN REGULAR RELEASE 75 MG TUBE (07:43)
[2024-10-12] MEDS: LOPRESSOR 12.5 MG TUBE (07:43)
[2024-10-12] MEDS: ELIQUIS 2.5 MG TUBE (07:43)
[2024-10-12] MEDS: PEPCID 20 MG TUBE (07:43)
[2024-10-12] MEDS: LOW STRENGTH ASPIRIN 81 MG TUBE (07:43)
--- NOTE | 2024-10-12 12:09 | W.DS.TRANS ---
DC Summary - Fur Tanner
-
Discharge Instructions:
Sleep Apnea Risk Low
Discharge Diagnosis/Procedures IMPRESSION:
Presentation with episode of unresponsiveness/
staring
� Differential diagnosis: Presyncope, versus
partial complex seizure possibly provoked by
relative hypotension
NATHALIE, mild
Mild hypotension secondary to dehydration
responded to IV fluid bolus
COVID-19 infection
Other conditions:
Subacute right MCA territory stroke with right
M2 occlusion
Dysphagia with aspiration risk requiring PEG
tube placement on 09/28.
Paroxysmal atrial fibrillation
Anticoagulation with Eliquis.
Dyslipidemia
Status post left femoral into secondary fracture
and open reduction term fixation on 10/04/2024.
Incidental thyroid nodules noted on CTA
involving the left Heema thyroid requiring
outpatient follow-up.
Anxiety/depression
Diet Tube feeding
Instructions:
Stand-Alone Forms:
Changes to Home Medications: Yes
Discharge Medications:
DC Medications w/original date entered in [employer] [facility]
mirtazapine 30 mg tablet 30 mg PO HS Mental Health/Anxiety 08/16/23
triamcinolone acetonide 0.1 % topical cream 1 applic topical BIDPRN PRN right ankle and left elbow 08/16/23
acetaminophen 325 mg/10.15 mL oral solution 650 mg feeding tube Q6HPRN PRN mild pain 10/10/24
aluminum-mag hydroxide-simethicone 200 mg-200 mg-20 mg/5 mL oral susp 30 ml feeding tube QIDPRN PRN gerd 10/10/24
apixaban 2.5 mg tablet (Eliquis) 2.5 mg PO BID Blood Clot Prevention/Tx 10/10/24
aspirin 81 mg chewable tablet 81 mg feeding tube DAILY Blood Clot Prevention/Tx 10/10/24
atorvastatin 20 mg tablet 20 mg feeding tube QPM High Cholesterol 10/10/24
bupropion HCl 75 mg tablet 75 mg PO BID Mental Health 10/10/24
cholecalciferol (vitamin D3) 50 mcg (2,000 unit) tablet (Vitamin D3) 50 mcg PO DAILY Supplement 10/10/24
famotidine 20 mg tablet (Pepcid) 20 mg feeding tube DAILY Gastrointestinal Issue 10/10/24
metoprolol tartrate 25 mg tablet 12.5 mg feeding tube BID Blood Pressure 10/10/24
plsmuxpk-csva-pcihoda gluconate 9 mg iron/15 mL (15 mL) oral liquid (Centrum) 15 ml feeding tube DAILY Supplement 10/10/24
nystatin 100,000 unit/mL oral suspension 5 ml PO QID thrush 10/10/24
Home Medication Changes
Tramadol stopped
Pending Results: No
[2024-10-12] MEDS: ROXICODONE 5 MG PO (13:59)
--- NOTE | 2024-10-12 14:08 | CM ---
patient seen at bedside with daughter
Video Swallow today
Discharge back to [facility]
IMM explained & signed
PLAN: [facility]
Report #: [phone]
Fax #: [phone]
--- NOTE | 2024-10-12 14:20 | PTOTSP ---
Speech Language Pathology
VIDEOFLUOROSCOPIC SWALLOWING EXAMINATION (VSE) completed. Significant improvement in oropharyngeal swallow noted compared to prior VSE. Mild oropharyngeal dysphagia noted this date. No difficulty with swallow initiation. Only trace pharyngeal
residue noted. Supraglottic penetration (PAS 3) noted with thin liquids via single cup sip and mildly thick liquids via consecutive straw sips. Penetration to the level of the vocal folds (PAS 5) noted with consecutive straw sips of thin liquids.
No other penetration or any aspiration noted during study.
Discussed results/recommendations with pt/daughter in fluoro suite following study as they were able to view images. Daughter reported baseline diet of IDDSI 5 given ill-fitting dentures.
Recommend:
(1) Initiate IDDSI Level 5 (minced/moist) and thin liquids
(2) Aspiration precautions: sit upright, single cup sips (no straws), intermittent cough/reswallow
(3) Meds as tolerated. Can take whole with sip of water if able to take single sip only. Otherwise, place whole in puree
(4) VIDEO NEWS EDITOR to continue to follow
[2024-10-12] MEDS: LIPITOR 20 MG TUBE (17:01)
--- NOTE | 2024-10-12 18:27 | PTCARENOTE ---
Patient discharged back to [facility], report given by this RN. Tele pack and IV removed, tube feeds stopped, patient on diet per speech after VSE this afternoon, tolerating diet and pills whole with water or applesauce. Vitals taken. Patient
dressed with assistance of daughter, belongings gathered in room by daughter, patient transported to [facility] in wheelchair by tech with daughter.
== END 2024-10-12 17:45 | DRG 178 ==
LOC: 2 NORTH 12:32
PROVIDERS: Physician Assistant; ADMITTING PHYSICIAN Internal Medicine; CONSULT PHYSICIAN Psychiatry & Neurology Neurology; EMERGENCY PHYSICIAN Emergency Medicine; FAMILY PHYSICIAN Family Medicine
DX: U07.1 COVID-19 (principal); I69.354 Hemiplegia and hemiparesis following cerebral infarction affecting left non-dominant side; N17.9 Acute kidney failure, unspecified; E86.0 Dehydration; I48.0 Paroxysmal atrial fibrillation; E04.2 Nontoxic multinodular goiter; F32.9 Major depressive disorder, single episode, unspecified; F41.9 Anxiety disorder, unspecified; M81.0 Age-related osteoporosis without current pathological fracture; I12.9 Hypertensive chronic kidney disease with stage 1 through stage 4 chronic kidney disease, or unspecified chronic kidney disease; N18.9 Chronic kidney disease, unspecified; I69.391 Dysphagia following cerebral infarction; Z79.01 Long term (current) use of anticoagulants
CPT/HCPCS: 70450; 74230; 80048; 80053; 82962; 84484; 85025; 92523; 92610; 92611; 93005; 96360; 96361; 97163; 97167; 97530; 99285

== ENCOUNTER 2024-11-03 04:16 | Emergency (ER) | payer MEDICARE, SELFPAY ==
[2024-11-03 04:16] VITALS: BMI 20.4
[2024-11-03 04:19] VITALS: BP 145/75
--- NOTE | 2024-11-03 04:42 | ED.GENMED ---
History of Present Illness
General
Chief Complaint: Fall
Source: patient, family (Daughter at bedside) and previous hospital records (Several recent hospitalizations throughout September for syncope, acute ischemic stroke, left hip fracture.)
Exam Limitations: none
Time Seen by Provider: 11/03/24 04:34
Nursing documentation reviewed up to this point in time: agreed with
History of Present Illness
History of Present Illness:
This is an 83-year-old woman who was admitted September 17 after suffering a syncopal episode, found to have acute ischemic stroke as well as left hip fracture. She underwent left hip fracture repair September 17. Repeated hospitalizations and lengthy [place]
rehab throughout the month of September. Noted had A-fib, maintained on Eliquis.
Noted to have dysphagia required NG tube, had PEG tube placed on September 28.
She has since successfully passed her swallowing evaluation and is now allowed oral nutrition.
Has been discharged to home October 16.
Early this morning while getting off of commode she lost her balance and fell striking her right parietal scalp. She denies loss of consciousness. She does admit to mild left knee pain. She has had mild left hip pain that is stable and unchanged.
She denies neck nor back pain. No nausea or vomiting, no chest pain.
She is noted to have some mild left-sided weakness that is slowly improving with home PT/OT as well as speech therapy.
Past History
Past History
ED Past Medical History: Arrthythmia (Atrial fibrillation), CVA (residual dysphagia) and HTN
ED Past Surgical History: Orthopedic (Left hip fracture repair September 17, 2024) and Other (PEG tube placement September 28, 2024)
Social History
Tobacco: Non-smoker
Alcohol: None
Personal:
Living: other (Currently inpatient at [facility])
Family History
Family History: Other (Noncontributory)
Phy Exam
Physical Exam
Physical Exam:
GENERAL: 83-year-old woman appears her stated age, bright and alert, pleasant, appears in no acute distress. Daughter is accompanying.
EYE: pupils equal and reactive. anicteric. Mild tenderness to palpation right parietal scalp. No soft tissue swelling nor hematoma.
NECK: Supple, nontender, full range of motion without difficulty nor pain, no significant adenopathy.
ENT: posterior pharynx is clear, oral mucosa is moist. TM clear b/l, nares patent.
CARDIAC: Regular rate and rhythm. no murmur.
LUNGS: Clear breath sounds bilaterally, no acute respiratory distress, no wheezes/rales/rhonchi
ABDOMEN: Soft, nondistended, without focal tenderness, no r/g, normoactive BS.
BACK: No midline bony tenderness.
NEUROLOGICAL: Alert and oriented x3, motor strength 5/5 bilaterally. Minimally decreased sensation left lower extremity.
SKIN: Warm and dry, normal color, skin intact. No rash.
MUSCULOSKELETAL: No C/C/E. peripheral pulses are full and equal b/l. Minimal tenderness about the left knee. No joint effusion. Full range of motion without difficulty. There is full range of motion of the left hip without difficulty nor pain.
PSYCH: Normal and appropriate interaction.
Course
Orders/Labs/Results
Orders:
Orders
11/03/24 04:25
CT Head W/o Iv Contrast Urgent
Comment:
Reason For Exam: fall, head injury, on eliquis
11/03/24 04:41
Knee, Left 4 or More Views [CR Knee - Left 4 Or More View*] Urgent
Comment:
Reason For Exam: fall, left knee pain
Vital Signs
Initial and Last Documented VS:
Initial Vital Signs
Temp Pulse Resp BP Pulse Ox
97.9 F 90 16 145/75 99
11/03/24 04:19 11/03/24 04:19 11/03/24 04:19 11/03/24 04:19 11/03/24 04:19
Last Documented Vital Signs
Temp Pulse Resp BP Pulse Ox
97.9 F 90 16 143/80 96
11/03/24 04:19 11/03/24 04:19 11/03/24 04:19 11/03/24 06:03 11/03/24 06:03
MDM/Problems Addressed
Differential Diagnosis Includes:
Patient presents after fall from commode, right parietal scalp contusion. As she is maintained on Eliquis we will check CT of the head.
Complains of left knee pain, mild tenderness to palpation. I suspect contusion. Less likely fracture but will check x-ray.
Overall appears neurologically stable and at baseline.
Nothing in history to suggest syncope nor seizure.
Chronic conditions affecting care: Arrhythmia and Neurological disorder
*Radiology
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 No evidence of fracture.) and radiology read reviewed (CT of the head shows no acute traumatic
findings)
*Pulse Oximetry
Patient hypoxic: no
*Critical Care Note
Total Time (30-74mins, 75-104mins- exclusive of procedures): Not Applicable
Update Note
Update Note:
06:10
Left knee x-ray shows no evidence of fracture.
CT of the head shows no acute traumatic findings.
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
Will discharge to home to continue with home PT/OT, speech therapy.
Follow-up with PCP for recheck.
Fall precautions discussed.
ED Attending Note
-
Portions of this chart may have been created with voice recognition software.� Occasional wrong word or��sound alike� substitutions may have occurred due to the inherent limitations of voice recognition software.
Discharge Plan
Departure
Patient Disposition: Home (Routine Discharge)
Date of Disposition: 11/03/24
Time of Disposition: 06:06
Patient with high blood pressure during this ER visit?: No
Condition: Good
Discharge Problem:
Fall at home, Minor closed head injury
Instructions: Head Injury in Adults (DC), Preventing falls in adults
Prescriptions:
No Action
triamcinolone acetonide 0.1 % Cream
1 applic TOPICAL BIDPRN PRN (Reason: right ankle and left elbow)
bupropion HCl 75 mg Tablet
75 mg PO BID
cholecalciferol (vitamin D3) [Vitamin D3] 50 mcg (2,000 unit) Tablet
50 mcg PO DAILY
Centrum 9 mg iron/ 15 mL (15 mL) Liquid
15 ml PO DAILY
mirtazapine 30 mg Tablet
30 mg PO HS 30 Days Qty: 30 0RF
tramadol 50 mg Tablet
50 mg PO Q6HPRN PRN (Reason: pain) 3 Days Qty: 15 0RF
famotidine [Pepcid] 20 mg Tablet
20 mg PO HS Qty: 0 0RF
aspirin 81 mg tablet,chewable
81 mg PO DAILY Qty: 0 0RF
acetaminophen 325 mg/10.15 mL Solution
650 mg PO Q6HPRN PRN (Reason: mild pain) Qty: 0 0RF
atorvastatin 20 mg Tablet
20 mg PO QPM 30 Days Qty: 0 0RF
metoprolol tartrate 25 mg Tablet
12.5 mg PO DAILY 30 Days Qty: 0 0RF
Eliquis 2.5 mg Tablet
2.5 mg PO BID 30 Days Qty: 0 0RF
Eliquis 2.5 mg Tablet
2.5 mg PO BID 30 Days Qty: 60 0RF
atorvastatin 20 mg tablet
20 mg PO QPM 30 Days Qty: 30 0RF
metoprolol tartrate 25 mg tablet
12.5 mg PO DAILY 30 Days Qty: 15 0RF
nystatin 100,000 unit/mL Suspension
5 ml PO QID PRN (Reason: thrush) 15 Days Qty: 300 0RF
Referrals:
Namita Naqvi MD [Family Provider] - Call in 1-3 days for appt
Interventions
Interventions:
*Risk Screen - Suicide Last Done: 11/03/24 04:19
*General Assessment Last Done: 11/03/24 04:19
*Neglect/Abuse Screening Last Done: 11/03/24 04:19
*ED COVID-19 Vaccine History Last Done: 11/03/24 04:33
ED-Musculoskeletal Assessment Last Done: 11/03/24 04:33
ED- Neurological Assessment Last Done: 11/03/24 04:33
ED-Skin Assessment Last Done: 11/03/24 04:33
Discharge Date and Time
Print Language: [place]UN[place]
[2024-11-03 06:03] VITALS: BP 143/80
== END 2024-11-03 06:34 | disposition home or self-care (01) ==
LOC: EMR 04:16
PROVIDERS: EMERGENCY PHYSICIAN Emergency Medicine; FAMILY PHYSICIAN Family Medicine
DX: S09.90XA Unspecified injury of head, initial encounter (principal); W18.11XA Fall from or off toilet without subsequent striking against object, initial encounter; Y92.009 Unspecified place in unspecified non-institutional (private) residence as the place of occurrence of the external cause; G89.29 Other chronic pain; M25.562 Pain in left knee; I10 Essential (primary) hypertension; I48.91 Unspecified atrial fibrillation; Z79.01 Long term (current) use of anticoagulants
CPT/HCPCS: 99284; 70450; 73564

== ENCOUNTER → 2024-11-27 11:33 | Outpatient (REF) | payer MEDICARE, SELFPAY ==
[2024-11-27 12:21] LABS: Hematocrit 33.2 % (37.0-47.0); Mean Corp Hgb Conc. 33.1 g/dL (33.0-37.0); Mean Corpuscular Hgb 30.7 pg (27.0-31.0); Mean Corpuscular Volume 92.7 fL (81.0-99.0); Mean Platelet Volume 11.8 fL (7.4-10.4); Platelet Count 203 10^3/uL (130-400); Red Blood Cell Count 3.58 10^6/uL (4.20-5.40); Red Cell Dist. Width 14.3 % (11.5-14.5); White Blood Cell Count 4.8 10^3/uL (4.8-10.8)
[2024-11-27 13:52] LABS: Blood Urea Nitrogen 53 mg/dl (7-17); Iron 74 ug/dl (37-170)
[2024-11-27 14:02] LABS: Percent Saturation 27 % (20-50); Total Iron Binding Capacity 272 ug/dl (265-497)
== END ==
LOC: CLAB 11:33
PROVIDERS: ATTENDING PHYSICIAN Nurse Practitioner Adult Health; FAMILY PHYSICIAN Family Medicine
DX: D64.9 Anemia, unspecified (principal); R79.89 Other specified abnormal findings of blood chemistry
CPT/HCPCS: 82565; 82728; 83540; 83550; 84520; 85027